=== PATIENT | male | born 1980 ===

== ENCOUNTER 2017-06-07 21:47 | Observation (INO) | payer SELFPAY ==
[2017-06-07 22:10] VITALS: BMI 26.5
--- NOTE | 2017-06-07 22:30 | ED PDOC ---
Arrival/HPI - General Historian: Patient, EMS <Yemi Chatman - Last Filed: 06/08/17 04:08> <Ruddy Marshall - Last Filed: 06/08/17 06:04> - General Chief Complaint: Alcohol Ingestion Time Seen by Provider: 06/07/17 22:27 - History of Present Illness Narrative History of Present Illness (Text): 06/07/17 22:27 37 y/o male, no significant pmh, nkda, +etoh on breath and admits drinking beer tonight, biba for the etoh intoxication x 1 hour. Pt. was found in the laundromat intoxicated and attempted to sleep in the laundromat, no fall or trauma, no head or neck injury, no dizziness, no abdominal pain, no dizziness, no homidical or suicidal ideation, no auditory or visual hallucination, no other medical or psychological complaints. (Yemi Chatman) Past Medical History - Provider Review Nursing Documentation Reviewed: Yes - Infectious Disease Hx of Infectious Diseases: None - Psychiatric Hx Substance Use: No - Anesthesia Hx Anesthesia: No <Yemi Chatman - Last Filed: 06/08/17 04:08> Family/Social History - Physician Review Nursing Documentation Reviewed: Yes Family/Social History: Unknown Family HX Smoking Status: Current Some Days Smoker Hx Alcohol Use: Yes Hx Substance Use: No <Yemi Chatman - Last Filed: 06/08/17 04:08> Allergies/Home Meds <Yemi Chatman - Last Filed: 06/08/17 04:08> <Ruddy Marshall - Last Filed: 06/08/17 06:04> Allergies/Adverse Reactions: Allergies No Known Allergies Allergy (Verified 06/15/16 03:12) Home Medications: Home Meds Medication Instructions Recorded Confirmed No Known Home Med 06/15/16 06/08/17 Review of Systems - Review of Systems Systems not reviewed;Unavailable: Intoxicated Constitutional: absent: Fatigue, Weight Change Eyes: absent: Vision Changes Respiratory: absent: SOB, Cough Cardiovascular: absent: Chest Pain Gastrointestinal: absent: Abdominal Pain, Nausea, Vomiting Musculoskeletal: absent: Arthralgias, Back Pain, Myalgias Neurological: absent: Headache, Dizziness, Focal Weakness, Gait Changes, Speech Changes, Facial Droop, Disequilibrium, Seizure <Yemi Chatman - Last Filed: 06/08/17 04:08> Physical Exam - Systems Exam Head: Present: Atraumatic, Normocephalic. No: Tenderness, Contusion, Swelling, Ecchymosis, Abrasion, Laceration Pupils: Present: PERRL Extroacular Muscles: Present: EOMI Conjunctiva: Present: Normal Mouth: Present: Moist Mucous Membranes Neck: Present: Normal Range of Motion, Trachea Midline. No: MIDLINE TENDERNESS , Paraspinal Tenderness, Lymphadenopathy Respiratory/Chest: Present: Clear to Auscultation, Good Air Exchange. No: Respiratory Distress, Accessory Muscle Use Cardiovascular: Present: Regular Rate and Rhythm, Normal S1, S2. No: Murmurs Abdomen: Present: Normal Bowel Sounds. No: Tenderness, Distention, Peritoneal Signs, Rebound, Guarding Back: Present: Normal Inspection. No: Midline Tenderness, Paraspinal Tenderness Upper Extremity: Present: Normal Inspection. No: Cyanosis, Edema Lower Extremity: Present: Normal Inspection. No: Edema Neurological: Present: GCS=15, Speech Normal, Motor Func Grossly Intact, Memory Normal Skin: Present: Warm, Dry, Normal Color. No: Rashes Psychiatric: Present: Alert, Oriented x 3, Normal Insight, Normal Concentration <Yemi Chatman - Last Filed: 06/08/17 04:08> Medical Decision Making <Yemi Chatman - Last Filed: 06/08/17 04:08> <Ruddy Marshall - Last Filed: 06/08/17 06:04> ED Course and Treatment: 06/07/17 22:29 -FS -Observe and reassess (Yemi Chatman) ED OBSERVATION Date of observation admission: 06/08/17 Time of observation admission: 00:30 <Yemi Chatman - Last Filed: 06/08/17 04:08> Discharge: Yes <Ruddy Marshall - Last Filed: 06/08/17 06:04> - Observation admission statement Patient is being placed in observation because:: alcohol intoxication (Yemi Chatman) - Goals of Observation Goals of observation are:: sober (Yemi Chatman) - Progress Note Progress Note: 06/08/17 00:30 -Pt. is sleeping 06/08/17 02:30 -Pt. is sleeping, pending for the sober, offer no medical or psychological complaints. -Pt. sign out to the current ER attending Dr. Marshall for the continue observation and final dispo the patient. (Yemi Chatman) - PA / [employer]INTENANCE / Resident Statement JUAN RAMON has reviewed & agrees with the documentation as recorded. <Yemi Chatman - Last Filed: 06/08/17 04:08> - PA / [employer]IN[employer]INTENANCE / Resident Statement / has reviewed & agrees with the documentation as recorded. <Ruddy Marshall - Last Filed: 06/08/17 06:04> Disposition/Present on Arrival - Present on Arrival Any Indicators Present on Arrival: No History of DVT/PE: No History of Uncontrolled Diabetes: No Urinary Catheter: No History of Decub. Ulcer: No History Surgical Site Infection Following: None - Disposition Have Diagnosis and Disposition been Completed?: Yes Disposition Time: 02:07 <Yemi Chatman - Last Filed: 06/08/17 04:08> - Present on Arrival Any Indicators Present on Arrival: No - Disposition Have Diagnosis and Disposition been Completed?: Yes Disposition Time: 06:00 <Ruddy Marshall - Last Filed: 06/08/17 06:04> - Disposition Diagnosis: Alcohol intoxication Disposition: HOME/ ROUTINE Patient Problems: Current Active Problems Problem Status Onset Alcohol intoxication Acute Condition: GOOD
[2017-06-07 22:46] VITALS: TEMP 97.6
[2017-06-08 04:44] VITALS: O2SAT 99
[2017-06-08 05:49] VITALS: BP 145/87; PULSE 81; RESP 18
== END 2017-06-08 06:04 | disposition home or self-care (01) ==
LOC: ED 21:47 → EROBSV 06-08 02:04
PROVIDERS: ADMIT Emergency Medicine; ATTEND Emergency Medicine
DX: F10.129 Alcohol abuse with intoxication, unspecified (principal)
CPT/HCPCS: 99284; G0378

== ENCOUNTER 2017-06-12 20:25 | Observation (INO) | payer SELFPAY ==
[2017-06-12 20:25] VITALS: BMI 26.5
[2017-06-12 20:52] VITALS: TEMP 98.4
--- NOTE | 2017-06-12 20:57 | ED PDOC ---
Arrival/HPI - General Chief Complaint: Alcohol Ingestion Time Seen by Provider: 06/12/17 20:26 Historian: Patient EM Caveat: Intoxicated - History of Present Illness Narrative History of Present Illness (Text): 06/12/17 20:55 A 37 year old male, with a history of etoh abuse, is brought into the emergency department via EMS for public intoxication. Patient admits to drinking earlier today and denies any other complaints at this time. Time/Duration: 4-6 hours Symptom Onset: Other Activities at Onset: Light (etoh consumption) Context: Other Past Medical History - Provider Review Nursing Documentation Reviewed: Yes - Infectious Disease Hx of Infectious Diseases: None - Psychiatric Hx Substance Use: No - Anesthesia Hx Anesthesia: No Family/Social History - Physician Review Nursing Documentation Reviewed: Yes Family/Social History: No Known Family HX Smoking Status: Current Some Days Smoker Hx Alcohol Use: Yes Frequency of alcohol use: Daily Hx Substance Use: No Allergies/Home Meds Allergies/Adverse Reactions: Allergies No Known Allergies Allergy (Verified 06/15/16 03:12) Home Medications: Home Meds Medication Instructions Recorded Confirmed No Known Home Med 06/15/16 06/12/17 Review of Systems - Physician Review All systems were reviewed & negative as marked: Yes - Review of Systems Constitutional: Normal. absent: Fevers Eyes: Normal ENT: Normal Respiratory: Normal. absent: SOB, Cough Cardiovascular: Normal. absent: Chest Pain Gastrointestinal: Normal. absent: Abdominal Pain, Diarrhea, Nausea, Vomiting Genitourinary Male: Normal. absent: Dysuria, Frequency, Hematuria, Urinary Output Changes Musculoskeletal: Normal. absent: Back Pain, Neck Pain Skin: Normal. absent: Rash Neurological: Normal. absent: Headache, Dizziness Endocrine: Normal Hemo/Lymphatic: Normal Psychiatric: Normal Physical Exam Vital Signs Reviewed: Yes Vital Signs Temp Pulse Resp BP Pulse Ox 06/12/17 20:51 98.4 F 90 18 128/71 95 Temperature: Afebrile Blood Pressure: Normal Pulse: Regular Respiratory Rate: Normal Appearance: Positive for: Well-Appearing, Non-Toxic, Comfortable Pain Distress: None Mental Status: Positive for: Alert and Oriented X 3, other (intoxicated) - Systems Exam Head: Present: Atraumatic, Normocephalic Pupils: Present: PERRL Extroacular Muscles: Present: EOMI Conjunctiva: Present: Normal Ears: Present: NORMAL TM Mouth: Present: Moist Mucous Membranes Pharnyx: Present: Normal Neck: Present: Normal Range of Motion Respiratory/Chest: Present: Clear to Auscultation, Good Air Exchange. No: Respiratory Distress, Accessory Muscle Use Cardiovascular: Present: Regular Rate and Rhythm, Normal S1, S2. No: Murmurs Abdomen: Present: Normal Bowel Sounds. No: Tenderness, Distention, Peritoneal Signs Back: Present: Normal Inspection Upper Extremity: Present: Normal Inspection. No: Cyanosis, Edema Lower Extremity: Present: Normal Inspection. No: Edema Neurological: Present: GCS=15, CN II-XII Intact, Speech Normal, Motor Func Grossly Intact, Normal Sensory Function Skin: Present: Warm, Dry, Normal Color. No: Rashes Psychiatric: Present: Alert, Oriented x 3, Intoxicated ED OBSERVATION Discharge: Yes Date of observation admission: 06/12/17 Time of observation admission: 20:55 - Observation admission statement Patient is being placed in observation because:: Alcohol intoxication - Goals of Observation Goals of observation are:: Patient to be observed for sobriety any signs of withdrawal. - Progress Note Progress Note: 06/12/17 20:55 Pt in acute distress, pending sobriety. 06/12/17 22:55 Pt resting comfortably, no new complaints. 06/13/17 00:55 Pt sleeping currently, in no acute distress. 06/13/17 02:55 Pt resting comfortably, no new complaints. 06/13/17 04:55 Pt sleeping currently, in no acute distress. 06/13/17 05:51 Pt awake, alert, and ambulating with steady gait. Pt stable for d/c. - PA / HAIR MIXER / Resident Statement MD/DO has reviewed & agrees with the documentation as recorded. - Scribe Statement The provider has reviewed the documentation as recorded by the Porsche Beavers Provider Scribe Attestation: All medical record entries made by the Scribromie were at my direction and personally dictated by me. I have reviewed the chart and agree that the record accurately reflects my personal performance of the history, physical exam, medical decision making, and the department course for this patient. I have also personally directed, reviewed, and agree with the discharge instructions and disposition. Disposition/Present on Arrival - Present on Arrival Any Indicators Present on Arrival: No History of DVT/PE: No History of Uncontrolled Diabetes: No Urinary Catheter: No History of Decub. Ulcer: No History Surgical Site Infection Following: None - Disposition Have Diagnosis and Disposition been Completed?: Yes Diagnosis: Alcohol intoxication Disposition: HOME/ ROUTINE Disposition Time: 05:54 Patient Plan: Discharge Condition: STABLE
[2017-06-13 06:31] VITALS: BP 128/60; PULSE 83; RESP 16; O2SAT 96
--- NOTE | 2017-06-13 13:59 | CARD ---
APPROVED REPORT EKG Measurement Heart [id number] <Conclusion> Normal sinus rhythm Minimal voltage criteria for LVH, may be normal variant Borderline ECG
== END 2017-06-13 05:54 | disposition home or self-care (01) ==
LOC: ED 20:25 → EROBSV 20:55
PROVIDERS: ADMIT Emergency Medicine; ATTEND Emergency Medicine
DX: F10.129 Alcohol abuse with intoxication, unspecified (principal)
CPT/HCPCS: 93005; 99283; G0378

== ENCOUNTER 2017-07-27 12:45 | Inpatient (IN) | payer OTHER ==
[2017-07-27 12:50] VITALS: BMI 27.9
--- NOTE | 2017-07-27 13:02 | ED PDOC ---
Arrival/HPI <Jazzmine Bae - Last Filed: 07/27/17 14:55> - General Historian: Patient, Other (translation provided by nurse) EM Caveat: Acuity of Condition - History of Present Illness Time/Duration: 4-6 hours Symptom Onset: Sudden Symptom Course: Unchanged Quality: Tightness Severity Level: 5 Activities at Onset: Rest Context: Home <ANTOINE MURRY - Last Filed: 07/27/17 14:58> - General Time Seen by Provider: 07/27/17 12:47 - History of Present Illness Narrative History of Present Illness (Text): 07/27/17 12:59 37yo Male with hx of ETOH abuse presents with headache that started earlier today. Pt admits to drinking 6-8 large alcoholic drinks yesterday and having one large bottle of beer earlier today. Pt admits to n/v yesterday that was non-bloody but none today. pt denies any cp, sob, fevers, chills, weakness. (ANTOINE MURRY) Past Medical History - Provider Review Nursing Documentation Reviewed: Yes - Past History Past History: Non-Contributing - Infectious Disease Hx of Infectious Diseases: None - Cardiac Hx Cardiac Disorders: No - Pulmonary Hx Respiratory Disorders: No - Neurological Hx Neurological Disorder: No - HEENT Hx HEENT Disorder: No - Renal Hx Renal Disorder: No - Endocrine/Metabolic Hx Endocrine Disorders: No - Hematological/Oncological Hx Blood Disorders: No - Integumentary Hx Dermatological Disorder: No - Musculoskeletal/Rheumatological Hx Musculoskeletal Disorders: No - Gastrointestinal Hx Gastrointestinal Disorders: No - Genitourinary/Gynecological Hx Genitourinary Disorders: No - Psychiatric Hx Psychophysiologic Disorder: Yes Hx Substance Use: Yes (ETOH) - Past Surgical History Past Surgical History: Non-Contributing - Anesthesia Hx Anesthesia: No <ANTOINE MURRY - Last Filed: 07/27/17 14:58> Family/Social History - Physician Review Nursing Documentation Reviewed: Yes Family/Social History: No Known Family HX Smoking Status: Current Some Days Smoker Hx Alcohol Use: Yes Frequency of alcohol use: Daily Hx Substance Use: No <ANTOINE MURRY - Last Filed: 07/27/17 14:58> Allergies/Home Meds <Jazzmine Bae - Last Filed: 07/27/17 14:55> <ANTOINE MURRY - Last Filed: 07/27/17 14:58> Allergies/Adverse Reactions: Allergies No Known Allergies Allergy (Verified 07/13/17 12:08) Home Medications: Home Meds Medication Instructions Recorded Confirmed No Known Home Med 07/27/17 07/27/17 Review of Systems - Physician Review All systems were reviewed & negative as marked: Yes - Review of Systems Systems not reviewed;Unavailable: Acuity of Condition Constitutional: Normal. absent: Fevers, Night Sweats, Other (weakness) Eyes: Other (blurry vision) ENT: Normal. absent: Hearing Changes Respiratory: Normal. absent: SOB, Cough Cardiovascular: Normal Gastrointestinal: Nausea, Vomiting Neurological: Headache. absent: Dizziness, Facial Droop <ANTOINE MURRY - Last Filed: 07/27/17 14:58> Physical Exam Vital Signs Reviewed: Yes Appearance: Positive for: Uncomfortable Pain Distress: None Mental Status: Positive for: Alert and Oriented X 3 - Systems Exam Head: Present: Atraumatic, Normocephalic Pupils: Present: Sluggish Extroacular Muscles: Present: EOMI Conjunctiva: Present: Normal Mouth: Present: Moist Mucous Membranes Neck: Present: Normal Range of Motion Respiratory/Chest: Present: Clear to Auscultation, Good Air Exchange Cardiovascular: Present: Normal S1, S2, Tachycardic Abdomen: Present: Normal Bowel Sounds. No: Tenderness, Distention Back: Present: Normal Inspection Lower Extremity: Present: Normal Inspection. No: Edema, CALF TENDERNESS Neurological: Present: Other (tremor when outstretched hands; fair finger to nose exam) Skin: Present: Warm, Dry, Other (contusion on R lateral sub-clavicle (doesn't recall how he got it)) Psychiatric: Present: Alert, Oriented x 3 <ANTOINE MURRY - Last Filed: 07/27/17 14:58> Vital Signs Temp Pulse Resp BP Pulse Ox 07/27/17 14:24 84 18 167/93 H 98 07/27/17 13:40 89 18 169/105 H 95 07/27/17 12:55 99 F 105 H 18 185/111 H 97 Medical Decision Making <Jazzmine Bae - Last Filed: 07/27/17 14:55> <ANTOINE MURRY - Last Filed: 07/27/17 14:58> ED Course and Treatment: 07/27/17 14:51 Patient seen and examined with resident; came up with plan together. Presented with etoh abuse; tachycardic and hypertensive - started on banana bag and iv ativan - patient with mild-moderate improvement, but upon standing, still with jittery sensation and recurrence of tachycardia. Etoh level is zeo c/w withdrawal. Patient will need to be admitted for close monitoring, evaluation, and treatment - discussed with Dr. Hussain Patel. 07/27/17 14:55 Also of noted, patient c/o nonspecific headache with normal neuro exam; CT head on 06/22/17 negative - no further workup. May be related to HTN. (Jazzmine Bae) 07/27/17 13:08 Impression: ETOH intoxication vs withdrawal Plan: -- Reassess and disposition -- banana bag -- Ativan 2mg IVP -- labs, UA, UDS, and ETOH level Progress Notes: 07/27/17 13:16 EKG showed NSR @ 82bpm w/ non-specific T wave abnormalities 07/27/17 13:50 Creator : Ashley Elise MD CXR done IMPRESSION: No active pulmonary disease 07/27/17 14:38 Dr. Bae spoke w/ Dr. Petros Patel who accepted the patient onto her service ( ANTOINE MURRY) - Lab Interpretations Lab Results: 07/27/17 13:35 07/27/17 13:35 Lab Results 07/27/17 13:35: Alcohol, Quantitative < 10 07/27/17 13:35: Sodium 136, Chloride 97 L, Potassium 3.8, Carbon Dioxide 27, Anion Gap 16, BUN 8, Creatinine 0.5, Est GFR ( Amer) > 60, Est GFR (Non- Af Amer) > 60, Random Glucose 101, Calcium 9.1, Magnesium 1.9, Total Bilirubin 1.7 H, AST 115 H, ALT 108 H, Alkaline Phosphatase 70, Total Protein 8.5 H, Albumin 4.9 H, Globulin 3.6, Albumin/Globulin Ratio 1.4, Lipase 165 07/27/17 13:35: pO2 199 H, VBG pH 7.46 H, VBG pCO2 38.0 L, VBG HCO3 27.0, VBG Total CO2 28.2 H, VBG O2 Sat (Calc) 99.4 H, VBG Base Excess 3.1 H, VBG Potassium 3.4 L, Sodium 134.0, Chloride 99.0, Glucose 103, Lactate 0.9, FiO2 21.0, Venous Blood Potassium 3.4 L 07/27/17 13:35: WBC 4.1 L, RBC 4.76, Hgb 14.7, Hct 40.8 L, MCV 85.7, MCH 30.9, MCHC 36.0, RDW 13.1, Plt Count 84 L, MPV 11.1 H, Gran % 79.5 H, Lymph % (Auto) 11.4 L, [place] % (Auto) 8.9 H, Eos % (Auto) 0.0 L, Baso % (Auto) 0.2, Gran # 3.29 , Lymph # 0.5 L, [place] # 0.4, Eos # 0.0, Baso # 0.01 07/27/17 13:32: Urine Opiates Screen Negative, Urine Methadone Screen Negative, Ur Barbiturates Screen Negative, Ur Phencyclidine Scrn Negative, Ur Amphetamines Screen Negative, U Benzodiazepines Scrn Negative, U Oth Cocaine Metabols Negative, U Cannabinoids Screen Negative 07/27/17 13:32: Urine Color Yellow, Urine Appearance Clear, Urine pH 7.5, Ur Specific Raymond 1.015, Urine Protein 30 H, Urine Glucose (UA) Negative, Urine Ketones 15 H, Urine Blood Trace-intact H, Urine Nitrate Negative, Urine Bilirubin Negative, Urine Urobilinogen 1.0 H, Ur Leukocyte Esterase Negative, Urine RBC 0 - 2, Urine WBC 0 - 2, Urine Bacteria Small - RAD Interpretation Radiology Orders: 07/27/17 13:12 CHEST PORTABLE [RAD] Stat - Medication Orders Current Medication Orders: Discontinued Medications Multivitamins/Vitamin C 10 ml/Thiamine HCl 100 mg/ Folic Acid 1 mg/ Dextrose/ Sodium Chloride 1,011.2 mls @ 1,000 mls/hr IV .Q1H1M ONE Stop: 07/27/17 14:12 Multivitamins/Vitamin C 10 ml/Thiamine HCl 100 mg/ Folic Acid 1 mg/ Dextrose/ Sodium Chloride 1,011.2 mls @ 1,011.2 mls/hr IV .Q1H ONE Stop: 07/27/17 14:29 Last Admin: 07/27/17 13:47 Dose: 1,011.2 mls/hr eMAR Start Stop Document 07/27/17 13:47 AD (Rec: 07/27/17 13:47 AD [id number]) Intravenous Solution Start Date 07/27/17 Start Time 13:47 Lorazepam (Ativan) 2 mg IVP ONCE ONE PRN Reason: Protocol Stop: 07/27/17 13:15 Last Admin: 07/27/17 13:39 Dose: 2 mg IVP Administration Document 07/27/17 13:39 AD (Rec: 07/27/17 13:39 AD [id number]) Charges for Administration # of IVP Administrations 1 - PA / VP [employer] / Resident Statement / has reviewed & agrees with the documentation as recorded. / has examined the patient and agrees with the treatment plan. <Jazzmine Bae - Last Filed: 07/27/17 14:55> Disposition/Present on Arrival - Disposition Patient Plan: Admission <Jazzmine Bae - Last Filed: 07/27/17 14:55> - Present on Arrival Any Indicators Present on Arrival: No History of DVT/PE: No History of Uncontrolled Diabetes: No Urinary Catheter: No History Surgical Site Infection Following: None - Disposition Have Diagnosis and Disposition been Completed?: Yes Disposition Time: 14:40 <ANTOINE MURRY - Last Filed: 07/27/17 14:58> - Disposition Diagnosis: Withdrawal symptoms, alcohol, EtOH dependence Disposition: HOSPITALIZED Patient Problems: Current Active Problems Problem Status Onset EtOH dependence Acute Withdrawal symptoms, alcohol Acute Condition: FAIR Referrals: PCP,NO [Primary Care Provider] - Follow up with primary
[2017-07-27] MEDS ORDERED: THIAMINE IV ONE (13:12)
[2017-07-27] MEDS ORDERED: MULTIVITAMIN IV ONE (13:12)
[2017-07-27] MEDS ORDERED: [UNRECOGNIZED DRUG - OTHER] IV ONE (13:12)
[2017-07-27] MEDS ORDERED: FOLIC ACID IV ONE (13:12)
[2017-07-27] MEDS ORDERED: Multivitamin (MVI) 10 ML, Thiamine 100 MG, Folic Acid 1 MG in Dextrose 5%/0.45% NS 1,00... IV ONE (13:30)
[2017-07-27 13:37] LABS: PH,URINE 7.5 (4.7-8.0); URINE BILIRUBIN NEGATIVE (NEGATIVE); URINE BLOOD TRACE-INTACT (NEGATIVE); URINE GLUCOSE (UA) NEGATIVE (NEGATIVE); URINE KETONE 15 mg/dL (NEGATIVE); URINE LEUKOCYTE ESTERASE NEGATIVE Leu/uL (NEGATIVE); URINE PROTEIN 30 mg/dL (<30 mg/dL)
[2017-07-27 13:40] LABS: VENOUS BLOOD GAS BASE EXCESS 3.1 mmol/L (0.0-2.0); VENOUS BLOOD PH 7.46 (7.32-7.43)
[2017-07-27 13:43] LABS: URINE APPEARANCE CLEAR (CLEAR); URINE COLOR YELLOW (YELLOW)
[2017-07-27 13:44] LABS: URINE RBC 0 - 2 /hpf (0-2); URINE WBC 0 - 2 /hpf (0-6)
[2017-07-27 13:45] LABS: URINE BACTERIA SMALL (NEG)
[2017-07-27 13:45] LABS: BASO # 0.01 K/mm3 (0.0-2.0); BASO % 0.2 % (0.0-3.0); GRAN # 3.29 (1.4-6.5); GRAN % 79.5 % (50.0-68.0); HEMATOCRIT 40.8 % (42.0-52.0); LYMPH # 0.5 (1.2-3.4); LYMPH % 11.4 % (22.0-35.0); MEAN CELL VOLUME 85.7 fl (80.0-105.0); MEAN CORPUSCULAR HEMOGLOBIN 30.9 pg (25.0-35.0); MEAN PLATELET VOLUME 11.1 fl (7.0-11.0); MONO # 0.4 (0.1-0.6); MONO % 8.9 % (1.0-6.0); RED CELL DISTRIBUTION WIDTH 13.1 % (11.5-14.5); WHITE BLOOD COUNT 4.1 10^3/ul (4.5-11.0)
--- NOTE | 2017-07-27 13:48 | RAD ---
HISTORY: etoh withdrawal COMPARISON: No prior. FINDINGS: LUNGS: The lungs are well inflated and clear. PLEURA: No significant pleural effusion identified, no pneumothorax apparent. CARDIOVASCULAR: Normal. OSSEOUS STRUCTURES: No significant abnormalities. VISUALIZED UPPER ABDOMEN: Normal. OTHER FINDINGS: None. IMPRESSION: No active pulmonary disease.
[2017-07-27 13:51] LABS: ALB/GLOB RATIO 1.4 (1.1-1.8); ALKALINE PHOSPHATASE 70 U/L (38-126); ALT/SGPT 108 U/L (7-56); AST/SGOT 115 U/L (17-59); BILIRUBIN,TOTAL 1.7 mg/dL (0.2-1.3); BLOOD UREA NITROGEN 8 mg/dL (7-21); CALCIUM 9.1 mg/dL (8.4-10.5); CARBON DIOXIDE 27 mmol/L (21-33); CHLORIDE 97 mmol/L (98-107); GFR AFRICAN-AMERICAN > 60; GLUCOSE,RANDOM 101 mg/dL (70-110); LIPASE 165 U/L (23-300); MAGNESIUM 1.9 mg/dL (1.7-2.2); POTASSIUM 3.8 mmol/L (3.6-5.0); SODIUM 136 mmol/L (132-148); TOTAL PROTEIN 8.5 g/dL (5.8-8.3)
--- NOTE | 2017-07-27 15:18 | CP.PCM.HP ---
<Emir Piña - Last Filed: 07/28/17 02:54> History of Present Illness - History of Present Illness History of Present Illness: H&P. Dr. Armstrong 37yo M wiht no significant PMHx here for evaluation of Dizziness and Headache x1 day. Patient has a hx of ETOH abuse and has been evaluated in the ED multiple times for ETOH intoxication. Patient states that he has been living on the streets for a few weeks now. He reports last alcohol use yesterday, 6-8 beers. He states that he drinks about 6-8 beers daily. He states that he has been feeling dizzy and has had a headache for the past day. He also reports some nausea without any emesis. Denies any urinary changes. Denies CP/SOB. No Vomiting or diarrhea. No Abd pain. Denies any visual disturbances. Denies any anxiety. PMHx: ETOH abuse PSHx: denies Family Hx: denies Social Hx: Current daily 6-8 beers per day. Does admit to tobacco use. Denies drugs. Currently lives [address] NKDA Present on Admission - Present on Admission Any Indicators Present on Admission: No Review of Systems - Review of Systems All systems: reviewed and no additional remarkable complaints except - Constitutional Constitutional: absent: Chills, Fever - EENT Eyes: absent: Blurred Vision Nose/Mouth/Throat: absent: Epistaxis - Cardiovascular Cardiovascular: absent: Chest Pain, Diaphoresis, Dyspnea, Edema - Respiratory Respiratory: absent: Cough, Dyspnea - Gastrointestinal Gastrointestinal: Nausea. absent: Abdominal Pain, Diarrhea, Dyspepsia, Dysphagia, Hematemesis, Melena, Vomiting - Genitourinary Genitourinary: absent: Dysuria - Musculoskeletal Musculoskeletal: absent: Back Pain - Integumentary Integumentary: absent: Lesions - Psychiatric Psychiatric: absent: Anxiety Past Patient History - Infectious Disease Hx of Infectious Diseases: None - Past Medical History & Family History Past Family History: Reviewed and not pertinent - Past Social History Smoking Status: Current Some Days Smoker Alcohol: > 2 Drinks/Day Drugs: Denies - CARDIAC Hx Cardiac Disorders: No - PULMONARY Hx Respiratory Disorders: No - NEUROLOGICAL Hx Neurological Disorder: No - HEENT Hx HEENT Problems: No - RENAL Hx Chronic Kidney Disease: No - ENDOCRINE/METABOLIC Hx Endocrine Disorders: No - HEMATOLOGICAL/ONCOLOGICAL Hx Blood Disorders: No - INTEGUMENTARY Hx Dermatological Problems: No - MUSCULOSKELETAL/RHEUMATOLOGICAL Hx Musculoskeletal Disorders: No - GASTROINTESTINAL Hx Gastrointestinal Disorders: No - GENITOURINARY/GYNECOLOGICAL Hx Genitourinary Disorders: No - PSYCHIATRIC Hx Psychophysiologic Disorder: Yes Hx Substance Use: No - SURGICAL HISTORY Hx Surgeries: No - ANESTHESIA Hx Anesthesia: No Meds Allergies/Adverse Reactions: Allergies Allergy/AdvReac Type Severity Reaction Status Date / Time No Known Allergies Allergy Verified 07/27/17 16:15 Physical Exam - Constitutional Appears: Well, No Acute Distress, Older Than Stated Age Additional comments: Flushed skin - Head Exam Head Exam: ATRAUMATIC, NORMAL INSPECTION, NORMOCEPHALIC - Eye Exam Eye Exam: EOMI, Normal appearance. absent: Scleral icterus - ENT Exam ENT Exam: Mucous Membranes Moist - Respiratory Exam Respiratory Exam: Clear to Auscultation Bilateral, NORMAL BREATHING PATTERN. absent: Decreased Breath Sounds, Rales, Rhonchi, Wheezes, Respiratory Distress - Cardiovascular Exam Cardiovascular Exam: RRR, +S1, +S2. absent: JVD - GI/Abdominal Exam GI & Abdominal Exam: Soft. absent: Distended, Firm, Guarding, Tenderness - Extremities Exam Extremities exam: Positive for: normal inspection. Negative for: calf tenderness, pedal edema - Back Exam Back exam: NORMAL INSPECTION - Neurological Exam Neurological exam: Alert, Oriented x3 - Psychiatric Exam Psychiatric exam: Normal Affect, Normal Mood - Skin Skin Exam: Dry, Intact, Normal Color, Warm Additional comments: flushed skin Results - Vital Signs Recent Vital Signs: Last Vital Signs Temp 99 F 07/27/17 12:55 Pulse 84 07/27/17 14:24 Resp 18 07/27/17 14:24 BP 167/93 H 07/27/17 14:24 Pulse Ox 98 07/27/17 14:24 - Labs Result Diagrams: 07/27/17 13:35 07/27/17 13:35 Labs: Laboratory Results - last 24 hr 07/27/17 07/27/17 07/27/17 13:32 13:32 13:35 WBC 4.1 L RBC 4.76 Hgb 14.7 Hct 40.8 L MCV 85.7 MCH 30.9 MCHC 36.0 RDW 13.1 Plt Count 84 L MPV 11.1 H Gran % 79.5 H Lymph % (Auto) 11.4 L [place] % (Auto) 8.9 H Eos % (Auto) 0.0 L Baso % (Auto) 0.2 Gran # 3.29 Lymph # 0.5 L [place] # 0.4 Eos # 0.0 Baso # 0.01 pO2 VBG pH VBG pCO2 VBG HCO3 VBG Total CO2 VBG O2 Sat (Calc) VBG Base Excess VBG Potassium Sodium Chloride Glucose Lactate FiO2 Potassium Carbon Dioxide Anion Gap BUN Creatinine Est GFR ( Amer) Est GFR (Non-Af Amer) Random Glucose Calcium Magnesium Total Bilirubin AST ALT Alkaline Phosphatase Total Protein Albumin Globulin Albumin/Globulin Ratio Lipase Venous Blood Potassium Urine Color Yellow Urine Appearance Clear Urine pH 7.5 Ur Specific [place] 1.015 Urine Protein 30 H Urine Glucose (UA) Negative Urine Ketones 15 H Urine Blood Trace-intact H Urine Nitrate Negative Urine Bilirubin Negative Urine Urobilinogen 1.0 H Ur Leukocyte Esterase Negative Urine RBC 0 - 2 Urine WBC 0 - 2 Urine Bacteria Small Urine Opiates Screen Negative Urine Methadone Screen Negative Ur Barbiturates Screen Negative Ur Phencyclidine Scrn Negative Ur Amphetamines Screen Negative U Benzodiazepines Scrn Negative U Oth Cocaine Metabols Negative U Cannabinoids Screen Negative Alcohol, Quantitative 07/27/17 07/27/17 07/27/17 13:35 13:35 13:35 WBC RBC Hgb Hct MCV MCH MCHC RDW Plt Count MPV Gran % Lymph % (Auto) [place] % (Auto) Eos % (Auto) Baso % (Auto) Gran # Lymph # [place] # Eos # Baso # pO2 199 H VBG pH 7.46 H VBG pCO2 38.0 L VBG HCO3 27.0 VBG Total CO2 28.2 H VBG O2 Sat (Calc) 99.4 H VBG Base Excess 3.1 H VBG Potassium 3.4 L Sodium 134.0 136 Chloride 99.0 97 L Glucose 103 Lactate 0.9 FiO2 21.0 Potassium 3.8 Carbon Dioxide 27 Anion Gap 16 BUN 8 Creatinine 0.5 Est GFR ( Amer) > 60 Est GFR (Non-Af Amer) > 60 Random Glucose 101 Calcium 9.1 Magnesium 1.9 Total Bilirubin 1.7 H AST 115 H ALT 108 H Alkaline Phosphatase 70 Total Protein 8.5 H Albumin 4.9 H Globulin 3.6 Albumin/Globulin Ratio 1.4 Lipase 165 Venous Blood Potassium 3.4 L Urine Color Urine Appearance Urine pH Ur Specific [place] Urine Protein Urine Glucose (UA) Urine Ketones Urine Blood Urine Nitrate Urine Bilirubin Urine Urobilinogen Ur Leukocyte Esterase Urine RBC Urine WBC Urine Bacteria Urine Opiates Screen Urine Methadone Screen Ur Barbiturates Screen Ur Phencyclidine Scrn Ur Amphetamines Screen U Benzodiazepines Scrn U Oth Cocaine Metabols U Cannabinoids Screen Alcohol, Quantitative < 10 Assessment & Plan - Assessment and Plan (Free Text) Assessment: 37yo M with PMHx of ETOH abuse here with dizziness, headache and ETOH abuse 1. Dizziness/Headaches f/u CT head orthostatic vitals IV fluids Encourage PO fluid intake 2. ETOH abuse CIWA protocol Ativan 1mg IV q6 Ativan 2mg IV q3 prn Zofran Daily Banana bag Utox negative Serum ETOH negative on tele monitor 3. Thrombocytopenia likely secondary to ETOH abuse no anticoagulation f/u coags 4. Elevated Liver enzymes f/u Hepatitis panel likely secondary to ETOH abuse avoid hepatotoxic meds continue to monitor 5. Elevated Blood Pressure continue to check vitals q6h clonidine prn 6. PPx SCDs Pepcid 20mg BID Discussed case with Dr. Patti Piña PGY1 <Marv Armstrong - Last Filed: 07/28/17 07:21> Results - Vital Signs Recent Vital Signs: Last Vital Signs Temp 98.9 F 07/28/17 05:50 Pulse 66 07/28/17 05:51 Resp 18 07/28/17 05:50 BP 137/96 H 07/28/17 05:50 Pulse Ox 99 07/28/17 05:50 - Labs Result Diagrams: 07/28/17 07:03 07/27/17 13:35 Labs: Laboratory Results - last 24 hr 07/28/17 07:03 WBC 3.8 L RBC 4.82 Hgb 14.8 Hct 41.5 L MCV 86.1 MCH 30.7 MCHC 35.7 RDW 13.2 Plt Count 79 L MPV 10.8 Gran % 58.9 Lymph % (Auto) 27.5 [place] % (Auto) 11.5 H Eos % (Auto) 1.8 Baso % (Auto) 0.3 Gran # 2.25 Lymph # 1.1 L [place] # 0.4 Eos # 0.1 Baso # 0.01 Attending/Attestation - Attestation I have personally seen and examined this patient.: Yes I have fully participated in the care of the patient.: Yes I have reviewed all pertinent clinical information: Yes Notes (Text): 07/27/17 37 year old homeless male with past medical history of alcohol abuse who presents with complaint of headache, dizziness and alcohol intoxication. He is being admitted to telemetry unit for alcohol withdrawal. CT head is negative. Will start on banana bag. Continue with ativan nevin and prn for withdrawal symptoms. He was counselled on alcohol abstinence. Elevated LFTs and thrombocytopenia likely secondary to chronic ETOH abuse. Will continue to monitor. Hepatitis panel is ordered. Marv rAmstrong MD Hospitalist.
--- NOTE | 2017-07-27 16:04 | CT ---
PROCEDURE: CT HEAD WITHOUT CONTRAST. HISTORY: Dizziness COMPARISON: 06/22/2017 TECHNIQUE: Axial computed tomography images were obtained through the head/brain without intravenous contrast. Radiation dose: Total exam DLP = 725.84 mGy-cm. This CT exam was performed using one or more of the following dose reduction techniques: Automated exposure control, adjustment of the mA and/or kV according to patient size, and/or use of iterative reconstruction technique. FINDINGS: HEMORRHAGE: No intracranial hemorrhage. BRAIN: No mass effect or edema. No atrophy or chronic microvascular ischemic changes. VENTRICLES: Unremarkable. No hydrocephalus. CALVARIUM: Unremarkable. PARANASAL SINUSES: Unremarkable as visualized. No significant inflammatory changes. MASTOID AIR CELLS: Unremarkable as visualized. No inflammatory changes. OTHER FINDINGS: None. IMPRESSION: Normal CT of the Head.
[2017-07-27] MEDS: Folic Acid 1 MG, Thiamine 100 MG, Multivitamin (MVI) 10 ML in Dextrose 5% In Water 1,00... IV SCH (17:55)
[2017-07-27] MEDS ORDERED: Pneumococcal 23-Valent Vaccine IM ONE (17:59)
[2017-07-28] MEDS: Folic Acid 1 MG, Thiamine 100 MG, Multivitamin (MVI) 10 ML in Dextrose 5% In Water 1,00... IV SCH ×2 (03:00→15:15)
[2017-07-28 05:51] VITALS: O2SAT 99
[2017-07-28 07:11] LABS: BASO # 0.01 K/mm3 (0.0-2.0); BASO % 0.3 % (0.0-3.0); EOS # 0.1 (0.0-0.7); EOS % 1.8 % (1.5-5.0); GRAN # 2.25 (1.4-6.5); GRAN % 58.9 % (50.0-68.0); HEMATOCRIT 41.5 % (42.0-52.0); LYMPH # 1.1 (1.2-3.4); LYMPH % 27.5 % (22.0-35.0); MEAN CELL VOLUME 86.1 fl (80.0-105.0); MEAN CORPUSCULAR HEMOGLOBIN 30.7 pg (25.0-35.0); MEAN CORPUSCULAR HGB CONC 35.7 g/dl (31.0-37.0); MEAN PLATELET VOLUME 10.8 fl (7.0-11.0); MONO # 0.4 (0.1-0.6); MONO % 11.5 % (1.0-6.0); RED CELL DISTRIBUTION WIDTH 13.2 % (11.5-14.5); WHITE BLOOD COUNT 3.8 10^3/ul (4.5-11.0)
[2017-07-28 07:17] LABS: INR 1.01 (0.93-1.08); PARTIAL THROMBOPLASTIN TIME 27.3 Seconds (23.7-30.8)
[2017-07-28 07:26] LABS: ALB/GLOB RATIO 1.3 (1.1-1.8); ALKALINE PHOSPHATASE 60 U/L (38-126); ALT/SGPT 119 U/L (7-56); AST/SGOT 116 U/L (17-59); BLOOD UREA NITROGEN 9 mg/dL (7-21); CALCIUM 9.3 mg/dL (8.4-10.5); CARBON DIOXIDE 31 mmol/L (21-33); CHLORIDE 97 mmol/L (95-110); GFR AFRICAN-AMERICAN > 60; GLUCOSE,RANDOM 122 mg/dL (70-110); POTASSIUM 3.6 mmol/L (3.6-5.0); SODIUM 135 mmol/L (132-148); TOTAL PROTEIN 7.6 g/dL (5.8-8.3)
--- NOTE | 2017-07-28 11:44 | CARD ---
APPROVED REPORT EKG Measurement Heart [id number] <Conclusion> Normal sinus rhythm Moderate voltage criteria for LVH, may be normal variant Nonspecific T wave abnormality Abnormal ECG
[2017-07-28 12:10] VITALS: RESP 26; TEMP 99.1
[2017-07-28 16:18] VITALS: PULSE 85
[2017-07-28 16:28] VITALS: BP 139/95
--- NOTE | 2017-07-28 21:18 | CP.PCM.DIS ---
<Enrrique Banks - Last Filed: 07/28/17 23:01> Provider - Provider Date of Admission: 07/27/17 14:33 Attending physician: Marv Armstrong MD Primary care physician: NO PRIMARY CARE PROVIDER Time Spent in preparation of Discharge (in minutes): 45 Diagnosis - Discharge Diagnosis (1) Alcohol intoxication Status: Resolved Priority: Low (2) EtOH dependence Status: Chronic Priority: Medium Hospital Course - Lab Results Lab Results: Most Recent Lab Values WBC 3.8 10^3/ul (4.5-11.0) L 07/28/17 07:03 RBC 4.82 10^6/uL (3.5-6.1) 07/28/17 07:03 Hgb 14.8 g/dL (14.0-18.0) 07/28/17 07:03 Hct 41.5 % (42.0-52.0) L 07/28/17 07:03 MCV 86.1 fl (80.0-105.0) 07/28/17 07:03 MCH 30.7 pg (25.0-35.0) 07/28/17 07:03 MCHC 35.7 g/dl (31.0-37.0) 07/28/17 07:03 RDW 13.2 % (11.5-14.5) 07/28/17 07:03 Plt Count 79 10^3/uL (120.0-450.0) L 07/28/17 07:03 MPV 10.8 fl (7.0-11.0) 07/28/17 07:03 Gran % 58.9 % (50.0-68.0) 07/28/17 07:03 Lymph % (Auto) 27.5 % (22.0-35.0) 07/28/17 07:03 [place] % (Auto) 11.5 % (1.0-6.0) H 07/28/17 07:03 Eos % (Auto) 1.8 % (1.5-5.0) 07/28/17 07:03 Baso % (Auto) 0.3 % (0.0-3.0) 07/28/17 07:03 Gran # 2.25 (1.4-6.5) 07/28/17 07:03 Lymph # 1.1 (1.2-3.4) L 07/28/17 07:03 [place] # 0.4 (0.1-0.6) 07/28/17 07:03 Eos # 0.1 (0.0-0.7) 07/28/17 07:03 Baso # 0.01 K/mm3 (0.0-2.0) 07/28/17 07:03 PT 10.9 Seconds (9.9-11.8) 07/28/17 07:03 INR 1.01 (0.93-1.08) 07/28/17 07:03 APTT 27.3 Seconds (23.7-30.8) 07/28/17 07:03 pO2 199 mm/Hg (30-55) H 07/27/17 13:35 VBG pH 7.46 (7.32-7.43) H 07/27/17 13:35 VBG pCO2 38.0 (40-60) L 07/27/17 13:35 VBG HCO3 27.0 mmol/l (21-28) 07/27/17 13:35 VBG Total CO2 28.2 mmol.L (22-28) H 07/27/17 13:35 VBG O2 Sat (Calc) 99.4 % (40-65) H 07/27/17 13:35 VBG Base Excess 3.1 mmol/L (0.0-2.0) H 07/27/17 13:35 VBG Potassium 3.4 mmol/L (3.6-5.2) L 07/27/17 13:35 Sodium 134.0 mmol/L (132-148) 07/27/17 13:35 Chloride 99.0 mmol/L (98-107) 07/27/17 13:35 Glucose 103 mg/dl (75-110) 07/27/17 13:35 Lactate 0.9 mmol/L (0.7-2.1) 07/27/17 13:35 FiO2 21.0 % 07/27/17 13:35 Sodium 135 mmol/L (132-148) 07/28/17 07:03 Potassium 3.6 mmol/L (3.6-5.0) 07/28/17 07:03 Chloride 97 mmol/L (95-110) 07/28/17 07:03 Carbon Dioxide 31 mmol/L (21-33) 07/28/17 07:03 Anion Gap 11 (10-20) 07/28/17 07:03 BUN 9 mg/dL (7-21) 07/28/17 07:03 Creatinine 0.6 mg/dL (0.5-1.4) 07/28/17 07:03 Est GFR ( Amer) > 60 07/28/17 07:03 Est GFR (Non-Af Amer) > 60 07/28/17 07:03 Random Glucose 122 mg/dL (70-110) H 07/28/17 07:03 Calcium 9.3 mg/dL (8.4-10.5) 07/28/17 07:03 Magnesium 1.9 mg/dL (1.7-2.2) 07/27/17 13:35 Total Bilirubin 2.0 mg/dL (0.2-1.3) H 07/28/17 07:03 AST 116 U/L (17-59) H 07/28/17 07:03 ALT 119 U/L (7-56) H 07/28/17 07:03 Alkaline Phosphatase 60 U/L (38-126) 07/28/17 07:03 Total Protein 7.6 g/dL (5.8-8.3) 07/28/17 07:03 Albumin 4.3 g/dL (3.0-4.8) 07/28/17 07:03 Globulin 3.4 gm/dL 07/28/17 07:03 Albumin/Globulin Ratio 1.3 (1.1-1.8) 07/28/17 07:03 Lipase 165 U/L (23-300) 07/27/17 13:35 Venous Blood Potassium 3.4 mmol/L (3.6-5.2) L 07/27/17 13:35 Urine Color Yellow (YELLOW) 07/27/17 13:32 Urine Appearance Clear (CLEAR) 07/27/17 13:32 Urine pH 7.5 (4.7-8.0) 07/27/17 13:32 Ur Specific [place] 1.015 (1.005-1.035) 07/27/17 13:32 Urine Protein 30 mg/dL (<30 mg/dL) H 07/27/17 13:32 Urine Glucose (UA) Negative mg/dL (NEGATIVE) 07/27/17 13:32 Urine Ketones 15 mg/dL (NEGATIVE) H 07/27/17 13:32 Urine Blood Trace-intact (NEGATIVE) H 07/27/17 13:32 Urine Nitrate Negative (NEGATIVE) 07/27/17 13:32 Urine Bilirubin Negative (NEGATIVE) 07/27/17 13:32 Urine Urobilinogen 1.0 E.U./dL (<1 E.U./dL) H 07/27/17 13:32 Ur Leukocyte Esterase Negative Tien/uL (NEGATIVE) 07/27/17 13:32 Urine RBC 0 - 2 /hpf (0-2) 07/27/17 13:32 Urine WBC 0 - 2 /hpf (0-6) 07/27/17 13:32 Urine Bacteria Small (NEG) 07/27/17 13:32 Urine Opiates Screen Negative (NEGATIVE) 07/27/17 13:32 Urine Methadone Screen Negative (NEGATIVE) 07/27/17 13:32 Ur Barbiturates Screen Negative (NEGATIVE) 07/27/17 13:32 Ur Phencyclidine Scrn Negative (NEGATIVE) 07/27/17 13:32 Ur Amphetamines Screen Negative (NEGATIVE) 07/27/17 13:32 U Benzodiazepines Scrn Negative (NEGATIVE) 07/27/17 13:32 U Oth Cocaine Metabols Negative (NEGATIVE) 07/27/17 13:32 U Cannabinoids Screen Negative (NEGATIVE) 07/27/17 13:32 Alcohol, Quantitative < 10 mg/dL (0-10) 07/27/17 13:35 Hepatitis A IgM Ab Negative (NEGATIVE) 07/27/17 13:35 Hep Bs Antigen Negative (NEGATIVE) 07/27/17 13:35 Hep B Core IgM Ab Negative (NEGATIVE) 07/27/17 13:35 Hepatitis C Antibody Negative (NEGATIVE) 07/27/17 13:35 - Hospital Course Hospital Course: 37 y/o M with PMH of alcohol abuse presented with alcohol intoxication and dizziness. Pt was admitted for alcohol withdrawal and treated with banana bag along with ativan for withdrawal symptoms. Pt also received Head CT which was found to be negative. Elevated LFTs and thrombocytopenia likely secondary to chronic alcohol abuse. Pt counseled on benefits of alcohol abstinence. Pt discharged and told to follow up at [facility]. Pt given multivitamin to go home with. Discharge Exam - Head Exam Head Exam: ATRAUMATIC, NORMAL INSPECTION, NORMOCEPHALIC - Eye Exam Eye Exam: Normal appearance. absent: Scleral icterus - ENT Exam ENT Exam: Mucous Membranes Moist - Respiratory Exam Respiratory Exam: NORMAL BREATHING PATTERN, UNREMARKABLE - Cardiovascular Exam Cardiovascular Exam: RRR, +S1, +S2 - GI/Abdominal Exam GI & Abdominal Exam: Normal Bowel Sounds, Soft, Unremarkable. absent: Tenderness - Extremities Exam Extremities exam: normal inspection - Neurological Exam Neurological exam: Alert, CN II-XII Intact, Oriented x3 Additional comments: No tremor - Psychiatric Exam Psychiatric exam: Normal Affect, Normal Mood - Skin Skin Exam: Intact, Normal Color, Warm Discharge Plan - Discharge Medications Prescriptions: Multivitamin [Men's Multi-Vitamin] 1 each PO DAILY #7 tablet - Follow Up Plan Condition: FAIR Disposition: HOME/ ROUTINE Instructions: Alcohol Intoxication (DC), Abuse of Alcohol (DC), Acute Headache (DC), Alcohol Withdrawal (DC), Alcohol Dependence (GEN), Alcohol Use Disorder ( DC) Additional Instructions: FOLLOW UP WITH YOUR DOCTOR WITHIN 1-2 WEEKS. IF YOU EXPERIENCE ANY TREMORS, PALPITATIONS, SHORTNESS OF BREATH OR CHEST PAIN, GO TO THE ER. IF SYMPTOMS PERSIST OR WORSEN GO TO THE ER. ABSTAIN FROM DRINKING ALCOHOL. Referrals: PCP,NO [Primary Care Provider] - <Marv Armstrong - Last Filed: 07/29/17 09:15> Provider - Provider Date of Admission: 07/27/17 14:33 Attending physician: Marv Armstrong MD Primary care physician: NO PRIMARY CARE PROVIDER Hospital Course - Lab Results Lab Results: Most Recent Lab Values WBC 3.8 10^3/ul (4.5-11.0) L 07/28/17 07:03 RBC 4.82 10^6/uL (3.5-6.1) 07/28/17 07:03 Hgb 14.8 g/dL (14.0-18.0) 07/28/17 07:03 Hct 41.5 % (42.0-52.0) L 07/28/17 07:03 MCV 86.1 fl (80.0-105.0) 07/28/17 07:03 MCH 30.7 pg (25.0-35.0) 07/28/17 07:03 MCHC 35.7 g/dl (31.0-37.0) 07/28/17 07:03 RDW 13.2 % (11.5-14.5) 07/28/17 07:03 Plt Count 79 10^3/uL (120.0-450.0) L 07/28/17 07:03 MPV 10.8 fl (7.0-11.0) 07/28/17 07:03 Gran % 58.9 % (50.0-68.0) 07/28/17 07:03 Lymph % (Auto) 27.5 % (22.0-35.0) 07/28/17 07:03 [place] % (Auto) 11.5 % (1.0-6.0) H 07/28/17 07:03 Eos % (Auto) 1.8 % (1.5-5.0) 07/28/17 07:03 Baso % (Auto) 0.3 % (0.0-3.0) 07/28/17 07:03 Gran # 2.25 (1.4-6.5) 07/28/17 07:03 Lymph # 1.1 (1.2-3.4) L 07/28/17 07:03 [place] # 0.4 (0.1-0.6) 07/28/17 07:03 Eos # 0.1 (0.0-0.7) 07/28/17 07:03 Baso # 0.01 K/mm3 (0.0-2.0) 07/28/17 07:03 PT 10.9 Seconds (9.9-11.8) 07/28/17 07:03 INR 1.01 (0.93-1.08) 07/28/17 07:03 APTT 27.3 Seconds (23.7-30.8) 07/28/17 07:03 pO2 199 mm/Hg (30-55) H 07/27/17 13:35 VBG pH 7.46 (7.32-7.43) H 07/27/17 13:35 VBG pCO2 38.0 (40-60) L 07/27/17 13:35 VBG HCO3 27.0 mmol/l (21-28) 07/27/17 13:35 VBG Total CO2 28.2 mmol.L (22-28) H 07/27/17 13:35 VBG O2 Sat (Calc) 99.4 % (40-65) H 07/27/17 13:35 VBG Base Excess 3.1 mmol/L (0.0-2.0) H 07/27/17 13:35 VBG Potassium 3.4 mmol/L (3.6-5.2) L 07/27/17 13:35 Sodium 134.0 mmol/L (132-148) 07/27/17 13:35 Chloride 99.0 mmol/L (98-107) 07/27/17 13:35 Glucose 103 mg/dl (75-110) 07/27/17 13:35 Lactate 0.9 mmol/L (0.7-2.1) 07/27/17 13:35 FiO2 21.0 % 07/27/17 13:35 Sodium 135 mmol/L (132-148) 07/28/17 07:03 Potassium 3.6 mmol/L (3.6-5.0) 07/28/17 07:03 Chloride 97 mmol/L (95-110) 07/28/17 07:03 Carbon Dioxide 31 mmol/L (21-33) 07/28/17 07:03 Anion Gap 11 (10-20) 07/28/17 07:03 BUN 9 mg/dL (7-21) 07/28/17 07:03 Creatinine 0.6 mg/dL (0.5-1.4) 07/28/17 07:03 Est GFR ( Amer) > 60 07/28/17 07:03 Est GFR (Non-Af Amer) > 60 07/28/17 07:03 Random Glucose 122 mg/dL (70-110) H 07/28/17 07:03 Calcium 9.3 mg/dL (8.4-10.5) 07/28/17 07:03 Magnesium 1.9 mg/dL (1.7-2.2) 07/27/17 13:35 Total Bilirubin 2.0 mg/dL (0.2-1.3) H 07/28/17 07:03 AST 116 U/L (17-59) H 07/28/17 07:03 ALT 119 U/L (7-56) H 07/28/17 07:03 Alkaline Phosphatase 60 U/L (38-126) 07/28/17 07:03 Total Protein 7.6 g/dL (5.8-8.3) 07/28/17 07:03 Albumin 4.3 g/dL (3.0-4.8) 07/28/17 07:03 Globulin 3.4 gm/dL 07/28/17 07:03 Albumin/Globulin Ratio 1.3 (1.1-1.8) 07/28/17 07:03 Lipase 165 U/L (23-300) 07/27/17 13:35 Venous Blood Potassium 3.4 mmol/L (3.6-5.2) L 07/27/17 13:35 Urine Color Yellow (YELLOW) 07/27/17 13:32 Urine Appearance Clear (CLEAR) 07/27/17 13:32 Urine pH 7.5 (4.7-8.0) 07/27/17 13:32 Ur Specific [place] 1.015 (1.005-1.035) 07/27/17 13:32 Urine Protein 30 mg/dL (<30 mg/dL) H 07/27/17 13:32 Urine Glucose (UA) Negative mg/dL (NEGATIVE) 07/27/17 13:32 Urine Ketones 15 mg/dL (NEGATIVE) H 07/27/17 13:32 Urine Blood Trace-intact (NEGATIVE) H 07/27/17 13:32 Urine Nitrate Negative (NEGATIVE) 07/27/17 13:32 Urine Bilirubin Negative (NEGATIVE) 07/27/17 13:32 Urine Urobilinogen 1.0 E.U./dL (<1 E.U./dL) H 07/27/17 13:32 Ur Leukocyte Esterase Negative Tien/uL (NEGATIVE) 07/27/17 13:32 Urine RBC 0 - 2 /hpf (0-2) 07/27/17 13:32 Urine WBC 0 - 2 /hpf (0-6) 07/27/17 13:32 Urine Bacteria Small (NEG) 07/27/17 13:32 Urine Opiates Screen Negative (NEGATIVE) 07/27/17 13:32 Urine Methadone Screen Negative (NEGATIVE) 07/27/17 13:32 Ur Barbiturates Screen Negative (NEGATIVE) 07/27/17 13:32 Ur Phencyclidine Scrn Negative (NEGATIVE) 07/27/17 13:32 Ur Amphetamines Screen Negative (NEGATIVE) 07/27/17 13:32 U Benzodiazepines Scrn Negative (NEGATIVE) 07/27/17 13:32 U Oth Cocaine Metabols Negative (NEGATIVE) 07/27/17 13:32 U Cannabinoids Screen Negative (NEGATIVE) 07/27/17 13:32 Alcohol, Quantitative < 10 mg/dL (0-10) 07/27/17 13:35 Hepatitis A IgM Ab Negative (NEGATIVE) 07/27/17 13:35 Hep Bs Antigen Negative (NEGATIVE) 07/27/17 13:35 Hep B Core IgM Ab Negative (NEGATIVE) 07/27/17 13:35 Hepatitis C Antibody Negative (NEGATIVE) 07/27/17 13:35 Attending/Attestation - Attestation I have personally seen and examined this patient.: Yes I have fully participated in the care of the patient.: Yes I have reviewed all pertinent clinical information, including history, physical exam and plan: Yes Notes (Text): 07/28/17 37 year old homeless male with past medical history of alcohol abuse who presented with complaint of headache, dizziness and alcohol intoxication. He was for alcohol withdrawal and started on banana bag and ativan for withdrawal symptoms. CT head is negative. Overnight his symptoms improved. He is not currently in withdrawal. He was seen by PT and cleared for discharge. He had eevated LFTs and thrombocytopenia likely secondary to chronic ETOH abuse. Hepatitis panel was negative. Patent is discharged to follow up with pmd or with [facility]. He was counselled on alcohol abstinence. Marv Armstrong MD Hospitalist.
== END 2017-07-28 17:51 | disposition home or self-care (01) | DRG 750 ==
LOC: ED 12:45 → ERH 14:33 → 2RSO 18:23
PROVIDERS: ADMIT Internal Medicine; ATTEND Internal Medicine
DX: F10.239 Alcohol dependence with withdrawal, unspecified (principal); D69.59 Other secondary thrombocytopenia; F17.200 Nicotine dependence, unspecified, uncomplicated; Z59.0 Homelessness; R51 Headache; I10 Essential (primary) hypertension; R00.0 Tachycardia, unspecified; R74.8 Abnormal levels of other serum enzymes

== ENCOUNTER 2017-07-30 22:06 | Observation (INO) | payer OTHER ==
[2017-07-30 22:27] VITALS: BMI 27.4
--- NOTE | 2017-07-30 22:41 | ED PDOC ---
Arrival/HPI - General Chief Complaint: Alcohol Ingestion Time Seen by Provider: 07/30/17 22:20 Historian: Patient EM Caveat: Intoxicated, Uncooperative - History of Present Illness Narrative History of Present Illness (Text): 07/30/17 22:35 37 year old male, whose past medical history includes ETOH abuse, presents to the emergency department by EMS for public ETOH intoxication. Patient admits to drinking, but denies any drug use. Patient asks for something to eat and drink. HPI and ROS limited to due patient being uncooperative and alcohol intoxication. Time/Duration: Other Symptom Onset: Gradual Symptom Course: Unchanged Context: Street Past Medical History - Provider Review Nursing Documentation Reviewed: Yes - Past History Past History: Non-Contributing - Infectious Disease Hx of Infectious Diseases: None - Cardiac Hx Cardiac Disorders: No - Pulmonary Hx Respiratory Disorders: No - Neurological Hx Neurological Disorder: No - HEENT Hx HEENT Disorder: No - Renal Hx Renal Disorder: No - Endocrine/Metabolic Hx Endocrine Disorders: No - Hematological/Oncological Hx Blood Disorders: No - Integumentary Hx Dermatological Disorder: No - Musculoskeletal/Rheumatological Hx Musculoskeletal Disorders: No - Gastrointestinal Hx Gastrointestinal Disorders: No - Genitourinary/Gynecological Hx Genitourinary Disorders: No - Psychiatric Hx Psychophysiologic Disorder: Yes Hx Substance Use: No - Past Surgical History Past Surgical History: Non-Contributing - Anesthesia Hx Anesthesia: No Family/Social History - Physician Review Nursing Documentation Reviewed: Yes Family/Social History: No Known Family HX Smoking Status: Current Some Days Smoker Hx Alcohol Use: Yes (BINGE DRINKS-LAST DRANK 10 OR MORE BEERS. HAS BEEN DRINKING 5-6 YRS.) Hx Substance Use: No Allergies/Home Meds Allergies/Adverse Reactions: Allergies No Known Allergies Allergy (Verified 07/30/17 22:26) Home Medications: Home Meds Medication Instructions Recorded Confirmed No Known Home Med 07/30/17 07/30/17 Review of Systems - Physician Review All systems were reviewed & negative as marked: Yes - Review of Systems Systems not reviewed;Unavailable: Intoxicated Physical Exam Vital Signs Temp Pulse Resp BP Pulse Ox 07/31/17 05:56 98.2 F 87 17 117/80 96 - Systems Exam Head: Present: Atraumatic, Normocephalic Pupils: Present: PERRL Extroacular Muscles: Present: EOMI Conjunctiva: Present: Normal Mouth: Present: Moist Mucous Membranes Neck: Present: Normal Range of Motion Respiratory/Chest: Present: Clear to Auscultation, Good Air Exchange. No: Respiratory Distress, Accessory Muscle Use Cardiovascular: Present: Regular Rate and Rhythm, Normal S1, S2. No: Murmurs Abdomen: Present: Normal Bowel Sounds. No: Tenderness, Distention, Peritoneal Signs Back: Present: Normal Inspection Upper Extremity: Present: Normal Inspection. No: Cyanosis, Edema Lower Extremity: Present: Normal Inspection. No: Edema Neurological: Present: GCS=15, CN II-XII Intact, Speech Normal Skin: Present: Warm, Dry, Normal Color. No: Rashes Psychiatric: Present: Alert, Oriented x 3, Normal Insight, Normal Concentration , Intoxicated Medical Decision Making ED Course and Treatment: 07/30/17 22:35 Impression: 37 year old male presents for public ETOH intoxication. Plan: -- edobs. -- Reassess and disposition Prior Visits: Notes and results from previous visits were reviewed. On 07/27/2017 patient presents complaining of headache that began earlier today. Progress Notes: 07/31/17 06:27 Pt. alert,sober,with steady gait in ED. ED OBSERVATION Discharge: Yes - Observation admission statement Patient is being placed in observation because:: Patient is being placed for alcohol intoxication. - Goals of Observation Goals of observation are:: Patient goal is sobriety. - Progress Note Progress Note: 07/30/17 22:35 Patient brought in by EMS for alcohol intoxication. Patient is asking for something to eat and drink. Will observe pending sobriety. 07/31/17 00:22 Patient currently sleeping, in no acute distress. 07/31/17 02:26 Patient resting comfortably, no new complaints. 07/31/17 04:18 Patient sleeping comfortably, in no acute distress. - Scribe Statement The provider has reviewed the documentation as recorded by the Porsche Devine Provider Scribe Attestation: All medical record entries made by the Porsche were at my direction and personally dictated by me. I have reviewed the chart and agree that the record accurately reflects my personal performance of the history, physical exam, medical decision making, and the department course for this patient. I have also personally directed, reviewed, and agree with the discharge instructions and disposition. Disposition/Present on Arrival - Present on Arrival Any Indicators Present on Arrival: No History of DVT/PE: No History of Uncontrolled Diabetes: No Urinary Catheter: No History of Decub. Ulcer: No History Surgical Site Infection Following: None - Disposition Have Diagnosis and Disposition been Completed?: Yes Diagnosis: Alcohol intoxication Disposition: HOME/ ROUTINE Disposition Time: 06:27 Patient Plan: Discharge Condition: STABLE
[2017-07-31 05:57] VITALS: BP 117/80; PULSE 87; RESP 17; TEMP 98.2; O2SAT 96
== END 2017-07-31 06:26 | disposition home or self-care (01) ==
LOC: ED 22:06 → EROBSV 22:35
PROVIDERS: ADMIT Emergency Medicine; ATTEND Emergency Medicine
DX: F10.129 Alcohol abuse with intoxication, unspecified (principal)
CPT/HCPCS: 99283; G0378

== ENCOUNTER 2017-08-02 19:44 | Observation (INO) | payer OTHER ==
[2017-08-02 19:52] VITALS: TEMP 99.2; BMI 24.7
[2017-08-02 19:57] VITALS: O2SAT 97
--- NOTE | 2017-08-02 21:37 | ED PDOC ---
Arrival/HPI - General Historian: Patient <Tigist Shine PA-C - Last Filed: 08/03/17 00:33> <Ruddy Marshall - Last Filed: 08/03/17 05:16> - General Chief Complaint: Abnormal Skin Integrity Time Seen by Provider: 08/02/17 20:24 - History of Present Illness Narrative History of Present Illness (Text): 08/02/17 21:31 A 37 year old male presents to the emergency department complaining of a bruise on his right upper chest wall. Patient is unsure how or when he sustained the bruise but denies any pain to touch. Patient presented intoxicated and admits to drinking 6 or more bottles of beer today. Patient denies any other injuries, head trauma, headache, dizziness, fever, chills, nausea, vomiting, abdominal pain, back pain, chest pain, shortness of breath, suicidal ideation, homicidal ideation or any other complaints. (Tigist Shine PA-C) Past Medical History - Provider Review Nursing Documentation Reviewed: Yes - Past History Past History: Non-Contributing - Infectious Disease Hx of Infectious Diseases: None - Cardiac Hx Cardiac Disorders: No - Pulmonary Hx Respiratory Disorders: No - Neurological Hx Neurological Disorder: No - HEENT Hx HEENT Disorder: No - Renal Hx Renal Disorder: No - Endocrine/Metabolic Hx Endocrine Disorders: No - Hematological/Oncological Hx Blood Disorders: No - Integumentary Hx Dermatological Disorder: No - Musculoskeletal/Rheumatological Hx Musculoskeletal Disorders: No - Gastrointestinal Hx Gastrointestinal Disorders: No - Genitourinary/Gynecological Hx Genitourinary Disorders: No - Psychiatric Hx Psychophysiologic Disorder: Yes Hx Substance Use: No - Past Surgical History Past Surgical History: Non-Contributing - Anesthesia Hx Anesthesia: No <Tigist Shine PA-C - Last Filed: 08/03/17 00:33> Family/Social History - Physician Review Nursing Documentation Reviewed: Yes Family/Social History: No Known Family HX Smoking Status: Current Some Days Smoker Hx Alcohol Use: Yes (BINGE DRINKS-LAST DRANK 10 OR MORE BEERS. HAS BEEN DRINKING 5-6 YRS.) Hx Substance Use: No <Tigist Shine PA-C - Last Filed: 08/03/17 00:33> Allergies/Home Meds <Tigist Shine PA-C - Last Filed: 08/03/17 00:33> <JoannaRuddy - Last Filed: 08/03/17 05:16> Allergies/Adverse Reactions: Allergies No Known Allergies Allergy (Verified 08/02/17 19:53) Home Medications: Home Meds Medication Instructions Recorded Confirmed No Known Home Med 07/30/17 08/02/17 Review of Systems - Physician Review All systems were reviewed & negative as marked: Yes - Review of Systems Constitutional: absent: Fevers, Night Sweats Respiratory: absent: SOB, Cough, Sputum Cardiovascular: absent: Chest Pain, Palpitations, Edema Gastrointestinal: absent: Abdominal Pain, Nausea, Vomiting Musculoskeletal: absent: Arthralgias, Back Pain, Neck Pain Skin: Other (Bruise to right upper chest wall). absent: Rash, Pruritis, Skin Lesions Neurological: absent: Headache, Dizziness Psychiatric: absent: Suicidal Ideation (/Homicidal ideation) <Tigist Shine PA-C - Last Filed: 08/03/17 00:33> Physical Exam Vital Signs Reviewed: Yes Temperature: Afebrile Blood Pressure: Normal Pulse: Regular Respiratory Rate: Normal Appearance: Positive for: Non-Toxic, Comfortable, Unkept, Other (Alcohol on breath, dishelved) Pain Distress: None Mental Status: Positive for: Alert and Oriented X 3 Finger Stick Blood Glucose: 90 - Systems Exam Head: Present: Atraumatic, Normocephalic Pupils: Present: PERRL Extroacular Muscles: Present: EOMI Conjunctiva: Present: Normal Mouth: Present: Moist Mucous Membranes Neck: Present: Normal Range of Motion Respiratory/Chest: Present: Clear to Auscultation, Good Air Exchange, Other ( Area of ecchymosis 5 cm in diameter located on right upper chest wall). No: Respiratory Distress, Accessory Muscle Use, Tender to Palpation Cardiovascular: Present: Regular Rate and Rhythm, Normal S1, S2. No: Murmurs Abdomen: Present: Normal Bowel Sounds. No: Tenderness, Distention, Peritoneal Signs Back: Present: Normal Inspection. No: CVA Tenderness, Midline Tenderness, Paraspinal Tenderness Upper Extremity: Present: Normal Inspection, Normal ROM, NORMAL PULSES. No: Cyanosis, Edema, Tenderness, Swelling, Erythema Lower Extremity: Present: Normal Inspection. No: Edema, Tenderness, Swelling Neurological: Present: GCS=15, CN II-XII Intact, Speech Normal Skin: Present: Warm, Dry, Normal Color. No: Rashes Psychiatric: Present: Alert, Oriented x 3 <Tigist Shine PA-C - Last Filed: 08/03/17 00:33> Vital Signs Temp Pulse Resp BP Pulse Ox 08/03/17 01:45 92 H 18 125/70 97 08/02/17 19:53 99.2 F 82 19 131/80 97 08/02/17 19:52 99.2 F 87 19 131/80 98 Medical Decision Making <Tigist Shine PA-C - Last Filed: 08/03/17 00:33> <Ruddy Marshall - Last Filed: 08/03/17 05:16> ED Course and Treatment: 08/02/17 21:31 Impression: A 37 year old male with bruise to right upper chest wall. Patient presented intoxicated, admitting to drinking alcohol. Plan: -- Chest xray -- Reassess and disposition Progress Notes: (Tigist Shine PA-C) - RAD Interpretation Radiology Orders: 08/02/17 20:47 CHEST TWO VIEWS (PA/LAT) [RAD] Stat ED OBSERVATION Date of observation admission: 08/02/17 Time of observation admission: 20:50 <Tigist Shine PA-C - Last Filed: 08/03/17 00:33> Discharge: Yes <Ruddy Marshall - Last Filed: 08/03/17 05:16> - Observation admission statement Patient is being placed in observation because:: etoh intoxication (Tigist Shine PA-C) - Goals of Observation Goals of observation are:: to monitor signs and symptoms (Tigist Shine PA-C) - Progress Note Progress Note: 08/02/17 23:30 CXR : +R 2nd rib fracture, no pneumothorax, no other fractures noted, as read by SAHIL and ER MD. Patient notified of CXR results. Patient resting in bed comfortably in no acute distress. Has no additional complaints at this time. Denies any chest pain, SOB or abdominal pain. 08/03/17 00:34 Patient still sleeping comfortably in no acute distress. Breathing easy and unlabored. (Tigist Shine PA-C) - PA / AUTO ENGINE MECHANIC / Resident Statement / has reviewed & agrees with the documentation as recorded. - Scribe Statement The provider has reviewed the documentation as recorded by the Scribe <Tigist Shine PA-C - Last Filed: 08/03/17 00:33> - PA / AUTO ENGINE MECHANIC / Resident Statement / has reviewed & agrees with the documentation as recorded. <Ruddy Marshall - Last Filed: 08/03/17 05:16> - Scribe Statement Rosario Carranza Provider Scribe Attestation: All medical record entries made by the Scribe were at my direction and personally dictated by me. I have reviewed the chart and agree that the record accurately reflects my personal performance of the history, physical exam, medical decision making, and the department course for this patient. I have also personally directed, reviewed, and agree with the discharge instructions and disposition. (Tigist Shine PA-C) Disposition/Present on Arrival - Present on Arrival Any Indicators Present on Arrival: No History of DVT/PE: No History of Uncontrolled Diabetes: No Urinary Catheter: No History of Decub. Ulcer: No History Surgical Site Infection Following: None - Disposition Have Diagnosis and Disposition been Completed?: Yes Patient Plan: Discharge <Tigist Shine PA-C - Last Filed: 08/03/17 00:33> - Present on Arrival Any Indicators Present on Arrival: No - Disposition Have Diagnosis and Disposition been Completed?: Yes Disposition Time: 06:00 <Ruddy Marshall - Last Filed: 08/03/17 05:16> - Disposition Diagnosis: Alcohol intoxication, Rib fracture Disposition: HOME/ ROUTINE Patient Problems: Current Active Problems Problem Status Onset Alcohol intoxication Acute Rib fracture Acute Condition: STABLE
--- NOTE | 2017-08-03 01:48 | ED PDOC ---
Physical Exam Vital Signs Temp Pulse Resp BP Pulse Ox 08/02/17 19:53 99.2 F 82 19 131/80 97 08/02/17 19:52 99.2 F 87 19 131/80 98 Finger Stick Blood Glucose: 90 Medical Decision Making - RAD Interpretation Radiology Orders: 08/02/17 20:47 CHEST TWO VIEWS (PA/LAT) [RAD] Stat Disposition/Present on Arrival - Present on Arrival Any Indicators Present on Arrival: No History of DVT/PE: No History of Uncontrolled Diabetes: No Urinary Catheter: No History of Decub. Ulcer: No History Surgical Site Infection Following: None - Disposition Diagnosis: Alcohol intoxication, Rib fracture Patient Problems: Current Active Problems Problem Status Onset Alcohol intoxication Acute Rib fracture Acute Condition: STABLE
[2017-08-03 03:09] VITALS: RESP 18
[2017-08-03 06:10] VITALS: BP 125/76; PULSE 88
--- NOTE | 2017-08-03 08:02 | RAD ---
HISTORY: pain COMPARISON: 07/27/2017 TECHNIQUE: Chest PA and lateral FINDINGS: LUNGS: No active pulmonary disease. PLEURA: No significant pleural effusion identified. No pneumothorax apparent. CARDIOVASCULAR: Normal. OSSEOUS STRUCTURES: No significant abnormalities. VISUALIZED UPPER ABDOMEN: Normal. OTHER FINDINGS: None. IMPRESSION: No active disease.
== END 2017-08-03 05:16 | disposition home or self-care (01) ==
LOC: ED 19:44 → EROBSV 20:50
PROVIDERS: ADMIT Emergency Medicine; ATTEND Emergency Medicine
DX: F10.129 Alcohol abuse with intoxication, unspecified (principal); S22.31XA Fracture of one rib, right side, initial encounter for closed fracture; X58.XXXA Exposure to other specified factors, initial encounter
CPT/HCPCS: 71020; 99284; G0378

== ENCOUNTER 2017-08-24 07:04 | Emergency (ER) | payer SELFPAY ==
[2017-08-24 07:24] VITALS: RESP 17; TEMP 98.4; BMI 27.3
[2017-08-24] MEDS ORDERED: Sodium Chloride 0.9% 1,000 ML IV STA (07:42)
--- NOTE | 2017-08-24 07:53 | ED PDOC ---
Arrival/HPI - General Chief Complaint: Dizziness/Lightheaded Time Seen by Provider: 08/24/17 07:23 Historian: Patient - History of Present Illness Narrative History of Present Illness (Text): 08/24/17 07:45 A 37 year old male chronic drinker, whose past medical history includes etoh dependence and etoh withdrawal, presents to the emergency department for complaints of dizziness, which began 1 day ago. He admits to drinking yesterday. The patient denies any trauma, fever, abdominal pain, vomiting, or any other complaints at this time. Time/Duration: 24 hours Symptom Onset: Gradual Symptom Course: Unchanged Activities at Onset: Light Context: Home Past Medical History - Provider Review Nursing Documentation Reviewed: Yes - Past History Past History: Non-Contributing - Infectious Disease Hx of Infectious Diseases: None - Cardiac Hx Cardiac Disorders: No - Pulmonary Hx Respiratory Disorders: No - Neurological Hx Neurological Disorder: No - HEENT Hx HEENT Disorder: No - Renal Hx Renal Disorder: No - Endocrine/Metabolic Hx Endocrine Disorders: No - Hematological/Oncological Hx Blood Disorders: No - Integumentary Hx Dermatological Disorder: No - Musculoskeletal/Rheumatological Hx Musculoskeletal Disorders: No - Gastrointestinal Hx Gastrointestinal Disorders: No - Genitourinary/Gynecological Hx Genitourinary Disorders: No - Psychiatric Hx Psychophysiologic Disorder: Yes Hx Substance Use: No - Past Surgical History Past Surgical History: Non-Contributing - Anesthesia Hx Anesthesia: No Family/Social History - Physician Review Nursing Documentation Reviewed: Yes Family/Social History: No Known Family HX Smoking Status: Current Some Days Smoker Hx Alcohol Use: Yes (BINGE DRINKS-LAST DRANK 10 OR MORE BEERS. HAS BEEN DRINKING 5-6 YRS.) Hx Substance Use: No Allergies/Home Meds Allergies/Adverse Reactions: Allergies No Known Allergies Allergy (Verified 08/02/17 19:53) Home Medications: Home Meds Medication Instructions Recorded Confirmed No Known Home Med 07/30/17 08/24/17 Review of Systems - Physician Review All systems were reviewed & negative as marked: Yes - Review of Systems Constitutional: absent: Fevers Cardiovascular: absent: Chest Pain Gastrointestinal: absent: Abdominal Pain, Vomiting Neurological: Dizziness Physical Exam Vital Signs Reviewed: Yes Vital Signs Temp Pulse Resp BP Pulse Ox 08/24/17 09:11 70 17 152/94 H 98 08/24/17 07:22 98.4 F 99 H 17 155/90 H 100 Temperature: Afebrile Blood Pressure: Hypertensive Pulse: Tachycardic Respiratory Rate: Normal Appearance: Positive for: Well-Appearing, Non-Toxic, Comfortable Pain Distress: None Mental Status: Positive for: Alert and Oriented X 3 - Systems Exam Head: Present: Atraumatic, Normocephalic Pupils: Present: PERRL Extroacular Muscles: Present: EOMI Conjunctiva: Present: Normal Mouth: Present: Moist Mucous Membranes Neck: Present: Normal Range of Motion Respiratory/Chest: Present: Clear to Auscultation, Good Air Exchange. No: Respiratory Distress, Accessory Muscle Use Cardiovascular: Present: Regular Rate and Rhythm, Normal S1, S2. No: Murmurs Abdomen: Present: Normal Bowel Sounds. No: Tenderness, Distention, Peritoneal Signs Back: Present: Normal Inspection Upper Extremity: Present: Normal Inspection. No: Cyanosis, Edema Lower Extremity: Present: Normal Inspection. No: Edema Neurological: Present: GCS=15, CN II-XII Intact, Speech Normal Skin: Present: Warm, Dry, Normal Color. No: Rashes Psychiatric: Present: Alert, Oriented x 3, Normal Insight, Normal Concentration Medical Decision Making ED Course and Treatment: 08/24/17 07:52 Impression: A 37 year old male with dizziness. Differential Diagnosis included but are not limited to: Plan: -- Head CT -- Labs -- IV Fluids -- Urinalysis -- Reassess and disposition Progress Notes: PROCEDURE: CT HEAD WITHOUT CONTRAST. Real Estate Clerk : Cipriano Foster MD Report Date : 08/24/2017 08:05:46 COMPARISON:None available. FINDINGS: HEMORRHAGE:No intracranial hemorrhage. BRAIN:No mass effect or edema. No atrophy or chronic microvascular ischemic changes. VENTRICLES:Unremarkable. No hydrocephalus. CALVARIUM:Unremarkable. PARANASAL SINUSES:Unremarkable as visualized. No significant inflammatory changes. MASTOID AIR CELLS:Unremarkable as visualized. No inflammatory changes. OTHER FINDINGS:None. IMPRESSION: Normal CT of the Head. 08/24/17 08:54 Upon re-evaluation, the patient is sleeping comfortably and not tremulous/ tachcardic. . The patient is stable for discharge. 08/24/17 10:16 - Lab Interpretations Lab Results: 08/24/17 08:24 08/24/17 08:24 Lab Results 08/24/17 08:24: Alcohol, Quantitative < 10 08/24/17 08:24: Sodium 137, Potassium 3.7, Chloride 97 L, Carbon Dioxide 26, Anion Gap 18, BUN 11, Creatinine 0.6 L, Est GFR ( Amer) > 60, Est GFR ( Non-Af Amer) > 60, Random Glucose 88, Calcium 9.4, Total Bilirubin 3.0 H, AST 304 H D, ALT 296 H, Alkaline Phosphatase 76, Total Protein 8.0, Albumin 4.7, Globulin 3.3, Albumin/Globulin Ratio 1.4 08/24/17 08:24: PT 11.4, INR 1.04, APTT 28.6 08/24/17 08:24: WBC 3.2 L, RBC 4.44, Hgb 14.2, Hct 39.9 L, MCV 89.9 D, MCH 32.0 , MCHC 35.6, RDW 14.0, Plt Count 117 L, MPV 12.1 H, Gran % 75.2 H, Lymph % (Auto ) 13.4 L, Emmet % (Auto) 9.9 H, Eos % (Auto) 0.9 L, Baso % (Auto) 0.6, Gran # 2.42, Lymph # 0.4 L, Emmet # 0.3, Eos # 0.0, Baso # 0.02 08/24/17 07:42: Urine Color Yellow, Urine Appearance Sl cloudy, Urine pH 7.5, Ur Specific Evans 1.015, Urine Protein 100 H, Urine Glucose (UA) Negative, Urine Ketones >=80, Urine Blood Trace-intact H, Urine Nitrate Negative, Urine Bilirubin Small H, Urine Urobilinogen 2.0 H, Ur Leukocyte Esterase Negative, Urine RBC 0 - 2, Urine WBC Negative, Ur Epithelial Cells 0 - 2, Amorphous Sediment Many, Urine Bacteria Trace - RAD Interpretation Radiology Orders: 08/24/17 07:41 HEAD W/O CONTRAST [CT] Stat - Medication Orders Current Medication Orders: Discontinued Medications Sodium Chloride (Sodium Chloride 0.9%) 1,000 mls @ 999 mls/hr IV .Q1H1M STA Stop: 08/24/17 08:42 Last Admin: 08/24/17 08:23 Dose: 999 mls/hr eMAR Start Stop Document 08/24/17 08:23 MR (Rec: 08/24/17 08:23 MR [id number]) Intravenous Solution Start Date 08/24/17 Start Time 08:23 End Date 08/24/17 End time 09:24 Total Infusion Time 61 - Scribe Statement The provider has reviewed the documentation as recorded by the Scribe Era Beavers Provider Scribe Attestation: All medical record entries made by the Scribe were at my direction and personally dictated by me. I have reviewed the chart and agree that the record accurately reflects my personal performance of the history, physical exam, medical decision making, and the department course for this patient. I have also personally directed, reviewed, and agree with the discharge instructions and disposition. Disposition/Present on Arrival - Present on Arrival Any Indicators Present on Arrival: No History of DVT/PE: No History of Uncontrolled Diabetes: No Urinary Catheter: No History of Decub. Ulcer: No History Surgical Site Infection Following: None - Disposition Have Diagnosis and Disposition been Completed?: Yes Diagnosis: Dizziness Disposition: HOME/ ROUTINE Disposition Time: 09:00 Condition: STABLE Discharge Instructions (ExitCare): Dizziness (ED) Additional Instructions: please follow up with your doctor/specialist. return to emergency room with worsening symptoms or concerns. Referrals: Alcoholics Anonymous [Outside] - Follow up with primary [facility] [Outside] - Follow up with primary [facility] [Outside] - Follow up with primary Turner Hernandez MD [Staff Provider] - Follow up with primary Forms: Auto I.D. ([place])
--- NOTE | 2017-08-24 08:07 | CT ---
PROCEDURE: CT HEAD WITHOUT CONTRAST. HISTORY: bashir COMPARISON: None available. TECHNIQUE: Axial computed tomography images were obtained through the head/brain without intravenous contrast. Radiation dose: Total exam DLP = 678 mGy-cm. This CT exam was performed using one or more of the following dose reduction techniques: Automated exposure control, adjustment of the mA and/or kV according to patient size, and/or use of iterative reconstruction technique. FINDINGS: HEMORRHAGE: No intracranial hemorrhage. BRAIN: No mass effect or edema. No atrophy or chronic microvascular ischemic changes. VENTRICLES: Unremarkable. No hydrocephalus. CALVARIUM: Unremarkable. PARANASAL SINUSES: Unremarkable as visualized. No significant inflammatory changes. MASTOID AIR CELLS: Unremarkable as visualized. No inflammatory changes. OTHER FINDINGS: None. IMPRESSION: Normal CT of the Head.
[2017-08-24 08:34] LABS: BASO # 0.02 K/mm3 (0.0-2.0); BASO % 0.6 % (0.0-3.0); EOS % 0.9 % (1.5-5.0); GRAN # 2.42 (1.4-6.5); GRAN % 75.2 % (50.0-68.0); HEMATOCRIT 39.9 % (42.0-52.0); LYMPH # 0.4 (1.2-3.4); LYMPH % 13.4 % (22.0-35.0); MEAN CELL VOLUME 89.9 fl (80.0-105.0); MEAN CORPUSCULAR HGB CONC 35.6 g/dl (31.0-37.0); MEAN PLATELET VOLUME 12.1 fl (7.0-11.0); MONO # 0.3 (0.1-0.6); MONO % 9.9 % (1.0-6.0); WHITE BLOOD COUNT 3.2 10^3/ul (4.5-11.0)
[2017-08-24 08:44] LABS: PH,URINE 7.5 (4.7-8.0); URINE BILIRUBIN SMALL (NEGATIVE); URINE BLOOD TRACE-INTACT (NEGATIVE); URINE GLUCOSE (UA) NEGATIVE (NEGATIVE); URINE KETONE >=80 mg/dL (NEGATIVE); URINE LEUKOCYTE ESTERASE NEGATIVE Leu/uL (NEGATIVE); URINE PROTEIN 100 mg/dL (<30 mg/dL)
[2017-08-24 08:47] LABS: URINE COLOR YELLOW (YELLOW)
[2017-08-24 08:47] LABS: INR 1.04 (0.93-1.08); PARTIAL THROMBOPLASTIN TIME 28.6 Seconds (25.1-36.5)
[2017-08-24 08:49] LABS: ALB/GLOB RATIO 1.4 (1.1-1.8); ALKALINE PHOSPHATASE 76 U/L (38-126); ALT/SGPT 296 U/L (7-56); AST/SGOT 304 U/L (17-59); BLOOD UREA NITROGEN 11 mg/dL (7-21); CALCIUM 9.4 mg/dL (8.4-10.5); CARBON DIOXIDE 26 mmol/L (21-33); CHLORIDE 97 mmol/L (98-107); GFR AFRICAN-AMERICAN > 60; GLUCOSE,RANDOM 88 mg/dL (70-110); POTASSIUM 3.7 mmol/L (3.6-5.0); SODIUM 137 mmol/L (132-148)
[2017-08-24 08:54] LABS: URINE AMORPHOUS SEDIMENT MANY; URINE APPEARANCE SL CLOUDY (CLEAR); URINE BACTERIA TRACE (NEG); URINE EPITHELIAL CELLS 0 - 2 /hpf (0-5); URINE RBC 0 - 2 /hpf (0-2); URINE WBC NEGATIVE /hpf (0-6)
[2017-08-24 09:12] VITALS: BP 152/94; PULSE 70; O2SAT 98
== END 2017-08-24 09:20 | disposition home or self-care (01) ==
LOC: ED 07:04
DX: R42 Dizziness and giddiness (principal); F17.200 Nicotine dependence, unspecified, uncomplicated
CPT/HCPCS: 70450; 80053; 81001; 85025; 85610; 85730; 96360; 99284; G0480; J7040

== ENCOUNTER 2017-08-24 23:00 | Inpatient (IN) | payer OTHER ==
[2017-08-24 23:00] VITALS: BMI 27.3
[2017-08-24] MEDS ORDERED: Sodium Chloride 0.9% 1,000 ML IV STA (23:28)
--- NOTE | 2017-08-24 23:29 | ED PDOC ---
Arrival/HPI - General Chief Complaint: Dizziness/Lightheaded Time Seen by Provider: 08/24/17 23:05 - History of Present Illness Narrative History of Present Illness (Text): 08/24/17 23:26 Patient was discharged this AM from the Emergency room. Had a full workup, including head CT and bloodwork. As per Dr. Morales note: "A 37 year old male chronic drinker, whose past medical history includes etoh dependence and etoh withdrawal, presents to the emergency department for complaints of dizziness, which began 1 day ago. He admits to drinking yesterday. The patient denies any trauma, fever, abdominal pain, vomiting, or any other complaints at this time" The patient is still currently complaining of dizziness. Denies all other symptoms. Denies chest pain, shortness of breath, abdominal pain, Nausea, vomiting, diarrhea, dysuria/freq/urg, or lower extremity pain/swelling. (Kyle Contreras) Past Medical History - Past History Past History: Non-Contributing - Infectious Disease Hx of Infectious Diseases: None - Cardiac Hx Cardiac Disorders: No - Pulmonary Hx Respiratory Disorders: No - Neurological Hx Neurological Disorder: No - HEENT Hx HEENT Disorder: No - Renal Hx Renal Disorder: No - Endocrine/Metabolic Hx Endocrine Disorders: No - Hematological/Oncological Hx Blood Disorders: No - Integumentary Hx Dermatological Disorder: No - Musculoskeletal/Rheumatological Hx Musculoskeletal Disorders: No - Gastrointestinal Hx Gastrointestinal Disorders: No - Genitourinary/Gynecological Hx Genitourinary Disorders: No - Psychiatric Hx Psychophysiologic Disorder: Yes Hx Substance Use: No - Past Surgical History Past Surgical History: Non-Contributing - Anesthesia Hx Anesthesia: No Family/Social History - Physician Review Nursing Documentation Reviewed: Yes Family/Social History: No Known Family HX Smoking Status: Current Some Days Smoker Hx Alcohol Use: Yes ([employer]INKS-LAST DRANK 10 OR MORE BEERS. HAS BEEN DRINKING 5-6 YRS.) Hx Substance Use: No Allergies/Home Meds Allergies/Adverse Reactions: Allergies No Known Allergies Allergy (Verified 08/02/17 19:53) Home Medications: Home Meds Medication Instructions Recorded Confirmed No Known Home Med 07/30/17 08/24/17 Review of Systems - Review of Systems Constitutional: absent: Fatigue Eyes: absent: Vision Changes ENT: absent: Hearing Changes Respiratory: absent: SOB Cardiovascular: absent: Chest Pain Gastrointestinal: absent: Abdominal Pain Genitourinary Male: absent: Dysuria Musculoskeletal: absent: Arthralgias Skin: absent: Rash Neurological: Headache, Dizziness Endocrine: absent: Diaphoresis Hemo/Lymphatic: absent: Adenopathy Psychiatric: absent: Anxiety Physical Exam Temperature: Afebrile Blood Pressure: Hypertensive Pulse: Regular Respiratory Rate: Normal Appearance: Positive for: Non-Toxic Pain Distress: None Mental Status: Positive for: Alert and Oriented X 3 - Systems Exam Head: Present: Atraumatic Pupils: Present: PERRL Extroacular Muscles: Present: EOMI Conjunctiva: Present: Normal Mouth: Present: Moist Mucous Membranes Neck: Present: Normal Range of Motion Respiratory/Chest: Present: Clear to Auscultation, Good Air Exchange. No: Respiratory Distress, Accessory Muscle Use Cardiovascular: Present: Regular Rate and Rhythm, Normal S1, S2. No: Murmurs Abdomen: Present: Normal Bowel Sounds. No: Tenderness, Distention Back: No: CVA Tenderness Upper Extremity: Present: Normal Inspection. No: Cyanosis, Edema Lower Extremity: Present: Normal Inspection. No: Edema Neurological: Present: GCS=15, CN II-XII Intact, Speech Normal Skin: Present: Warm Psychiatric: Present: Alert, Oriented x 3 Vital Signs Temp Pulse Resp BP Pulse Ox 08/25/17 03:15 88 19 144/83 99 08/25/17 01:29 63 20 150/89 99 08/24/17 23:15 98.7 F 72 16 164/99 H 97 Medical Decision Making ED Course and Treatment: Impression: Pt seen and evaluated with medical corps officer. Pt, whose past medical history includes alcohol dependence/withdrawal, presents for dizziness. Aware and agree with HPI, clinical findings, plan, and management. Plan: -- CT Head w/o contrast -- Labs, alcohol level -- Urine drug screen -- IV fluids -- Zofran -- Motrin -- Antivert -- Reassess and disposition (Ruddy Marshall) 08/24/17 23:30 Labs from AM appreciated; AST/ALT markedly elevated Lipase ordered repeat head CT; AM one was negative for any acute pathology; patient denies any new falls or EtOH ingestion Meclizine, Ibuprofen, NS bolus, Zofran Dispo and reassess Pancreatitis vs Subdural Hematoma vs chronic EtOH abuse/intoxication/dementia 08/25/17 00:[address] negative for any acute process patient is comfortably resting in bed receiving IVF Pending lipase 08/25/17 00:11 Lipase 218; Pancreatitis liklihood low; EtOH level below 10 patient feels better on reassessment 08/25/17 02:31 Pt was sleeping; woke up from sleep tachycardic and shaking given 2mg IV Ativan Chest X-Ray ordered, EKG, CBC/CMP Gave Thiamine/Folate IV 08/25/17 03:16 Will admit the patient for EtOH withdrawal, with increased liver enzymes 08/25/17 03:[address] Greenberg and the medical corps officer; they will [facility] (Kyle Adrian) - Lab Interpretations Lab Results: 08/25/17 02:45 08/24/17 23:45 Lab Results 08/25/17 02:45: WBC 3.6 L, RBC 4.38, Hgb 13.8 L, Hct 39.6 L, MCV 90.4, MCH 31.5 , MCHC 34.8, RDW 14.1, Plt Count 110 L, MPV 12.5 H, Gran % 66.0, Lymph % (Auto) 22.8, [place] % (Auto) 8.9 H, Eos % (Auto) 1.7, Baso % (Auto) 0.6, Gran # 2.37, Lymph # 0.8 L, [place] # 0.3, Eos # 0.1, Baso # 0.02 08/24/17 23:45: Sodium 134, Potassium 3.4 L, Chloride 99, Carbon Dioxide 25, Anion Gap 13, BUN 12, Creatinine 0.6 L, Est GFR ( Amer) > 60, Est GFR ( Non-Af Amer) > 60, Random Glucose 115 H, Calcium 9.3, Total Bilirubin 2.2 H, AST 464 H D, ALT 374 H, Alkaline Phosphatase 90, Total Protein 7.9, Albumin 4.7 , Globulin 3.2, Albumin/Globulin Ratio 1.5 08/24/17 23:45: Phosphorus 2.6, Magnesium 2.0 08/24/17 23:45: Alcohol, Quantitative < 10 08/24/17 23:45: Lipase 218 - RAD Interpretation Radiology Orders: 08/24/17 23:28 HEAD W/O CONTRAST [CT] Stat 08/25/17 02:31 CHEST PORTABLE [RAD] Stat - Medication Orders Current Medication Orders: Potassium Chloride (K-Dur 20 Meq Er Tab) 40 meq PO STAT STA Stop: 08/25/17 03:22 Discontinued Medications Folic Acid (Folic Acid) 1 mg IVP ONCE STA Stop: 08/25/17 02:30 Last Admin: 08/25/17 03:08 Dose: 1 mg IVP Administration Document 08/25/17 03:08 OCS (Rec: 08/25/17 03:08 OCS [id number]) Charges for Administration # of IVP Administrations 1 Sodium Chloride (Sodium Chloride 0.9%) 1,000 mls @ 999 mls/hr IV .Q1H1M STA Stop: 08/25/17 00:28 Last Admin: 08/24/17 23:45 Dose: 999 mls/hr eMAR Start Stop Document 08/24/17 23:45 OCS (Rec: 08/25/17 00:04 OCS [id number]) Intravenous Solution Start Date 08/25/17 Start Time 00:04 Ibuprofen (Motrin Tab) 600 mg PO STAT STA Stop: 08/24/17 23:29 Last Admin: 08/24/17 23:45 Dose: 600 mg MAR Pain/Vitals Document 08/24/17 23:45 OCS (Rec: 08/25/17 00:04 OCS [id number]) Pain Reassessment Is This A Pain ReAssessment? Yes Sleep Is patient sleeping during reassessment? No Presence of Pain Presence of Pain Yes Pain Scale Used Pain Scale Used Numeric Location Pain Location Body Cushion Filler Description Constant Intensity 8 Lorazepam (Ativan) 2 mg IVP ONCE ONE PRN Reason: Protocol Stop: 08/25/17 02:27 Last Admin: 08/25/17 02:31 Dose: 2 mg Comments: adm for alcohol withdrawal symptoms IVP Administration Document 08/25/17 02:31 YP (Rec: 08/25/17 02:32 [place] [facility] [id number] Charges for Administration # of IVP Administrations 1 Meclizine HCl (Antivert) 12.5 mg PO STAT STA Stop: 08/24/17 23:30 Last Admin: 08/24/17 23:45 Dose: 12.5 mg Ondansetron HCl (Zofran Inj) 4 mg IVP STAT STA Stop: 08/24/17 23:29 Last Admin: 08/24/17 23:45 Dose: 4 mg IVP Administration Document 08/24/17 23:45 OCS (Rec: 08/25/17 00:05 OCS [id number]) Charges for Administration # of IVP Administrations 1 Thiamine HCl (Vitamin B1 Inj) 100 mg IV STAT STA Stop: 08/25/17 02:30 Last Admin: 08/25/17 03:08 Dose: 100 mg eMAR Start Stop Document 08/25/17 03:08 OCS (Rec: 08/25/17 03:08 OCS [id number]) Intravenous Solution Start Date 08/25/17 Start Time 03:08 Disposition/Present on Arrival - Present on Arrival Any Indicators Present on Arrival: Yes History of DVT/PE: No History of Uncontrolled Diabetes: No Urinary Catheter: No History of Decub. Ulcer: No History Surgical Site Infection Following: None - Disposition Have Diagnosis and Disposition been Completed?: Yes Disposition Time: 03:25 Patient Plan: Telemetry - Disposition Diagnosis: Alcohol withdrawal Disposition: HOSPITALIZED Condition: FAIR Forms: [employer] (Serbian)
--- NOTE | 2017-08-25 00:03 | CT ---
EXAM: CT Head Without Intravenous Contrast CLINICAL HISTORY: 37 years old, male; Pain; Headache; Additional info: ETOH TECHNIQUE: Axial computed tomography images of the head/brain without intravenous contrast. All CT scans at this facility use one or more dose reduction techniques, viz.: automated exposure control; ma/kV adjustment per patient size (including targeted exams where dose is matched to indication; i.e. head); or iterative reconstruction technique. COMPARISON: CT - HEAD W/O CONTRAST 2017-08-24 07:52 FINDINGS: Brain: No acute intracranial hemorrhage. No significant white matter disease. No edema. Ventricles: No significant ventriculomegaly. Bones: No acute displaced fracture. Sinuses: Unremarkable as visualized. No acute sinusitis. Mastoid air cells: Unremarkable as visualized. No mastoid effusion. IMPRESSION: No acute intracranial hemorrhage, or suspicious mass effect.
[2017-08-25 00:25] LABS: PHOSPHOROUS 2.6 mg/dL (2.5-4.5)
[2017-08-25] MEDS ORDERED: Thiamine 100 mg/ml Inj IV STA (02:29)
[2017-08-25 03:03] LABS: BASO # 0.02 K/mm3 (0.0-2.0); BASO % 0.6 % (0.0-3.0); EOS # 0.1 (0.0-0.7); EOS % 1.7 % (1.5-5.0); GRAN # 2.37 (1.4-6.5); HEMATOCRIT 39.6 % (42.0-52.0); LYMPH # 0.8 (1.2-3.4); LYMPH % 22.8 % (22.0-35.0); MEAN CELL VOLUME 90.4 fl (80.0-105.0); MEAN CORPUSCULAR HEMOGLOBIN 31.5 pg (25.0-35.0); MEAN CORPUSCULAR HGB CONC 34.8 g/dl (31.0-37.0); MEAN PLATELET VOLUME 12.5 fl (7.0-11.0); MONO # 0.3 (0.1-0.6); MONO % 8.9 % (1.0-6.0); RED CELL DISTRIBUTION WIDTH 14.1 % (11.5-14.5); WHITE BLOOD COUNT 3.6 10^3/ul (4.5-11.0)
[2017-08-25 03:12] LABS: ALB/GLOB RATIO 1.5 (1.1-1.8); ALKALINE PHOSPHATASE 90 U/L (38-126); ALT/SGPT 374 U/L (7-56); AST/SGOT 464 U/L (17-59); BILIRUBIN,TOTAL 2.2 mg/dL (0.2-1.3); BLOOD UREA NITROGEN 12 mg/dL (7-21); CALCIUM 9.3 mg/dL (8.4-10.5); CARBON DIOXIDE 25 mmol/L (21-33); CHLORIDE 99 mmol/L (95-110); GFR AFRICAN-AMERICAN > 60; GLUCOSE,RANDOM 115 mg/dL (70-110); POTASSIUM 3.4 mmol/L (3.6-5.0); SODIUM 134 mmol/L (132-148); TOTAL PROTEIN 7.9 g/dL (5.8-8.3)
[2017-08-25] MEDS ORDERED: Potassium Chloride 20 mEq ER Tab PO STA (03:21)
[2017-08-25] MEDS ORDERED: Multivitamin (MVI) 10 ML, Thiamine 100 MG, Folic Acid 1 MG in Sodium Chloride 0.9% 1,00... IV ONE ×2 (04:17→23:37)
--- NOTE | 2017-08-25 04:29 | CP.PCM.HP ---
<Bhavik Adam - Last Filed: 08/25/17 05:32> History of Present Illness - History of Present Illness History of Present Illness: This is a 37 year old male with a past medical history of alcohol abuse that comes into the emergency department complaining of headache and dizziness for one day. The patient recently was discharged from the emergency department for the same complaints this morning. The patient reports that last time he had a alcohol drink was three days ago. The patient denies any chest pain, shortness of breath, lightheadedness, changes in vision, nausea, vomiting, constipation, diarrhea, fevers, chills, sick contacts, or any other complaints. PMD: None Past medical history: See HPI Medications: None Past surgical history: Denies Social history: Currently drinks 6-8 24oz beers a day. Admits to occasional smoking. Allergies: NKDA Present on Admission - Present on Admission Any Indicators Present on Admission: No Review of Systems - Constitutional Constitutional: absent: Chills, Daytime Sleepiness, Increased Appetite, Weight Loss, Weakness - EENT Eyes: absent: Blurred Vision, Change in Vision, Decreased Night Vision, Irritation Ears: Disequilibrium, Dizziness. absent: Decreased Hearing, Ear Discharge, Ear Pain, Tinnitus Nose/Mouth/Throat: absent: Nasal Congestion, Nasal Discharge, Sinus Pressure, Hoarsness, Sore Throat, Throat Swelling - Cardiovascular Cardiovascular: Lightheadedness. absent: Acrocyanosis, Chest Pain, Chest Pain at Rest, Leg Edema, Leg Ulcers, Orthopnea, Palpitations, Paroxysmal Nocturnal Dyspnea, Pedal Edema, Syncope - Respiratory Respiratory: absent: Cough, Dyspnea on Exertion, Wheezing, Snoring, Pain on Inspiration, Chest Congestion - Gastrointestinal Gastrointestinal: absent: Abdominal Pain, Constipation, Cramping, Diarrhea, Nausea - Musculoskeletal Musculoskeletal: absent: Arthralgias, Muscle Cramps, Muscle Weakness, Stiffness , Tingling - Integumentary Integumentary: absent: Erythema, Swelling, Unusual Bruising - Neurological Neurological: Headaches. absent: Confusion, Numbness, Focal Weakness, Vertigo, Weakness - Psychiatric Psychiatric: absent: Anxiety, Confusion - Endocrine Endocrine: absent: Fatigue, Flushing, Polydipsia, Polyphagia, Polyuria - Hematologic/Lymphatic Hematologic: absent: Easy Bleeding, Easy Bruising Past Patient History - Infectious Disease Hx of Infectious Diseases: None - Past Social History Smoking Status: Current Some Days Smoker - CARDIAC Hx Cardiac Disorders: No - PULMONARY Hx Respiratory Disorders: No - NEUROLOGICAL Hx Neurological Disorder: No - HEENT Hx HEENT Problems: No - RENAL Hx Chronic Kidney Disease: No - ENDOCRINE/METABOLIC Hx Endocrine Disorders: No - HEMATOLOGICAL/ONCOLOGICAL Hx Blood Disorders: No - INTEGUMENTARY Hx Dermatological Problems: No - MUSCULOSKELETAL/RHEUMATOLOGICAL Hx Musculoskeletal Disorders: No - GASTROINTESTINAL Hx Gastrointestinal Disorders: No - GENITOURINARY/GYNECOLOGICAL Hx Genitourinary Disorders: No - PSYCHIATRIC Hx Psychophysiologic Disorder: Yes Hx Substance Use: No - SURGICAL HISTORY Hx Surgeries: No - ANESTHESIA Hx Anesthesia: No Meds Allergies/Adverse Reactions: Allergies Allergy/AdvReac Type Severity Reaction Status Date / Time No Known Allergies Allergy Verified 08/02/17 19:53 Physical Exam - Head Exam Head Exam: ATRAUMATIC, NORMAL INSPECTION, NORMOCEPHALIC - Eye Exam Eye Exam: EOMI, Normal appearance, PERRL. absent: Scleral icterus Pupil Exam: NORMAL ACCOMODATION, PERRL. absent: Unequal - ENT Exam ENT Exam: Mucous Membranes Moist, Normal Exam. absent: TM's Normal Bilaterally - Neck Exam Neck exam: Positive for: Normal Inspection. Negative for: Tenderness - Respiratory Exam Respiratory Exam: Clear to Auscultation Bilateral, NORMAL BREATHING PATTERN. absent: Chest Wall Tenderness, Rhonchi, Wheezes - Cardiovascular Exam Cardiovascular Exam: REGULAR RHYTHM, +S1, +S2. absent: Diastolic murmur, Irregular Rhythm, Systolic Murmur - GI/Abdominal Exam GI & Abdominal Exam: Normal Bowel Sounds, Soft. absent: Guarding, Mass - Neurological Exam Neurological exam: Alert, CN II-XII Intact, Oriented x3 Additional comments: Tremors noted on on the left upper extremity . - Psychiatric Exam Psychiatric exam: Normal Affect, Normal Mood - Skin Skin Exam: Dry, Intact, Warm Results - Vital Signs Recent Vital Signs: Last Vital Signs Temp 98.7 F 08/24/17 23:15 Pulse 88 08/25/17 03:15 Resp 19 08/25/17 03:15 BP 144/83 08/25/17 03:15 Pulse Ox 99 08/25/17 03:15 - Labs Result Diagrams: 08/25/17 02:45 08/24/17 23:45 Assessment & Plan - Assessment and Plan (Free Text) Assessment: This is a 37 year old male with a past medical history of etoh abuse that is being admitted for etoh abuse withdrawal. Plan: 1. Alochol abuse -Blood alcohol upon admission <10. Patient had one episode of VTach of 150's in the E.D. Given 2mg Ativan in the E.D. -Head CT done in the emergency department was negative. -Banana bag @125mls/hr. -CIWA protocols. Seizures precautions -Fall risk (Med). Aspiration precautions -Ativan 2mg Q2 PRN 2.Transaminitis -AST 464. [id number] Upon admission. -Last hepatitis panel done 07/27/17 was negative(-). -likely 2/2 to etoh abuse. -Will f/u with coags. 3. Normocytic anemia -Hemoglobin 13.8 upon admission. MCV 90.4 upon admission. -F/u with H/H. 4. Thrombocytopenia -Likely secondary to alcohol abuse. Will monitor closely. -No coagulation GI ppx -Protonix DVT/PE ppx -SCD's <Shawn Greenberg Q - Last Filed: 08/25/17 06:18> Results - Vital Signs Recent Vital Signs: Last Vital Signs Temp 98.5 F 08/25/17 05:57 Pulse 81 08/25/17 05:57 Resp 16 08/25/17 05:57 BP 147/101 H 08/25/17 05:57 Pulse Ox 99 08/25/17 05:57 - Labs Result Diagrams: 08/25/17 02:45 08/24/17 23:45 Attending/Attestation - Attestation I have personally seen and examined this patient.: Yes I have fully participated in the care of the patient.: Yes I have reviewed all pertinent clinical information: Yes Notes (Text): 08/25/17 06:16 I agree with the above mentioned note and exam with the addition of the following: Patient showing signs of alcohol withdrawal (fine tremors, sporadic episodes of hypertension/agitation). He also has transaminitis which is rising despite his T. Bili level decreasing.
[2017-08-25 06:33] LABS: BASO # 0.01 K/mm3 (0.0-2.0); BASO % 0.3 % (0.0-3.0); EOS # 0.1 (0.0-0.7); EOS % 1.8 % (1.5-5.0); GRAN # 2.23 (1.4-6.5); GRAN % 66.1 % (50.0-68.0); HEMATOCRIT 40.3 % (42.0-52.0); LYMPH # 0.7 (1.2-3.4); MEAN CELL VOLUME 90.6 fl (80.0-105.0); MEAN CORPUSCULAR HEMOGLOBIN 31.2 pg (25.0-35.0); MEAN CORPUSCULAR HGB CONC 34.5 g/dl (31.0-37.0); MEAN PLATELET VOLUME 11.5 fl (7.0-11.0); MONO # 0.3 (0.1-0.6); MONO % 9.8 % (1.0-6.0); RED CELL DISTRIBUTION WIDTH 14.2 % (11.5-14.5); WHITE BLOOD COUNT 3.4 10^3/ul (4.5-11.0)
[2017-08-25 06:43] LABS: ALB/GLOB RATIO 1.4 (1.1-1.8); ALKALINE PHOSPHATASE 74 U/L (38-126); ALT/SGPT 340 U/L (7-56); AST/SGOT 290 U/L (17-59); BILIRUBIN,TOTAL 2.5 mg/dL (0.2-1.3); BLOOD UREA NITROGEN 9 mg/dL (7-21); CALCIUM 9.3 mg/dL (8.4-10.5); CARBON DIOXIDE 29 mmol/L (21-33); CHLORIDE 102 mmol/L (95-110); GFR AFRICAN-AMERICAN > 60; GLUCOSE,RANDOM 103 mg/dL (70-110); SODIUM 139 mmol/L (132-148); TOTAL PROTEIN 7.8 g/dL (5.8-8.3)
[2017-08-25 06:51] LABS: INR 1.05 (0.93-1.08)
--- NOTE | 2017-08-25 08:11 | RAD ---
HISTORY: chest pain COMPARISON: 08/02/2017 FINDINGS: LUNGS: No active pulmonary disease. Shallow lung volume. Study rotated towards the right PLEURA: No significant pleural effusion identified, no pneumothorax apparent. CARDIOVASCULAR: Normal. OSSEOUS STRUCTURES: No significant abnormalities. VISUALIZED UPPER ABDOMEN: Normal. OTHER FINDINGS: None. IMPRESSION: No active disease.
--- NOTE | 2017-08-25 09:15 | CARD ---
APPROVED REPORT EKG Measurement Heart [id number] NV [id number] <Conclusion> Normal sinus rhythm Voltage criteria for left ventricular hypertrophy Abnormal ECG
[2017-08-26] MEDS: Pantoprazole 20 mg EC Tab PO SCH (06:13)
--- NOTE | 2017-08-26 07:45 | CP.PCM.PN ---
<Ryan Cabrera - Last Filed: 08/26/17 13:59> Subjective - Date & Time of Evaluation Date of Evaluation: 08/26/17 Time of Evaluation: 07:00 - Subjective Subjective: patient was seen and examined at bedside. patient is agitated and speaking incoherently stating that he is having auditory and visual hallucinations. overnight, per nurses the patient was agitated and was throwing objects and presented as a threat to self, staff and other patients. Objective - Vital Signs/Intake and Output Vital Signs (last 24 hours): Temp Pulse Resp BP Pulse Ox 97.6 F 79 20 128/77 99 08/26/17 06:00 08/26/17 06:00 08/26/17 06:00 08/26/17 06:00 08/26/17 06:00 Intake and Output: 08/26/17 08/26/17 06:59 18:59 Intake Total 700 Balance 700 - Medications Medications: Current Medications Multivitamins/Vitamin C 10 ml/Thiamine HCl 100 mg/ Folic Acid 1 mg/ Sodium Chloride 1,011.2 mls @ 100 mls/hr IV .Q10H7M ONE Stop: 08/26/17 09:43 Last Admin: 08/26/17 01:42 Dose: 100 mls/hr Lorazepam (Ativan) 2 mg IVP Q2 PRN; Protocol PRN Reason: Symptoms of alcohol withdrawl Last Admin: 08/26/17 06:52 Dose: 2 mg Lorazepam (Ativan) 2 mg IVP Q3 LACY PRN Reason: Protocol Last Admin: 08/26/17 06:37 Dose: 2 mg Pantoprazole Sodium (Protonix Ec Tab) 20 mg PO 0600 LACY Last Admin: 08/26/17 06:13 Dose: Not Given - Labs Labs: 08/25/17 06:00 08/25/17 06:00 PT 11.6 SECONDS (9.4-12.5) 08/25/17 06:00 INR 1.05 (0.93-1.08) 08/25/17 06:00 APTT 28.0 Seconds (25.1-36.5) 08/25/17 06:00 - Constitutional Appears: Well, Non-toxic, Agitated - Head Exam Head Exam: ATRAUMATIC, NORMAL INSPECTION - Eye Exam Eye Exam: EOMI, Normal appearance, PERRL Pupil Exam: NORMAL ACCOMODATION - ENT Exam ENT Exam: Mucous Membranes Moist - Neck Exam Neck Exam: Full ROM - Respiratory Exam Respiratory Exam: Clear to Ausculation Bilateral. absent: Rales, Rhonchi, Wheezes, Respiratory Distress - Cardiovascular Exam Cardiovascular Exam: Tachycardia, REGULAR RHYTHM. absent: Murmur - GI/Abdominal Exam GI & Abdominal Exam: Soft, Normal Bowel Sounds. absent: Distended, Tenderness - Extremities Exam Additional comments: 2-point UE restraints in place - Back Exam Back Exam: NORMAL INSPECTION - Neurological Exam Neurological Exam: Alert, Awake - Psychiatric Exam Psychiatric exam: Agitated - Skin Skin Exam: Normal Color, Warm - Additional Findings Additional findings: lakeshia vest and 2-pt UE restraints in place patient attempting to take the restraints off Assessment and Plan - Assessment and Plan (Free Text) Assessment: 37yo M PMH ETOH abuse presenting with ETOH withdrawal Plan: 1. ETOH withdrawal - pt agitated last night and received multiple doses of Ativan and Geodon, still agitated - lakeshia vest and 2-pt restraints applied - Banana bag @100 - CIWA protocol (CIWA score 41) - currently, tachycardia w/ HR 130-150 - ICU consult placed - Seizures precautions - Fall risk (Med). Aspiration precautions - Ativan 4mg Q4 LACY and 2mg Q2 PRN 2. Transaminitis (chronic) likely 2/2 ETOH abuse - Last hepatitis panel done 07/27/17 was negative(-) - avoid hepatotoxic meds 3. Pancytopenia likely 2/2 marrow suppression 2/2 ETOH - monitor for signs of infection or bleeding PTX/SCDs Patient was seen, examined and discussed with attending, Dr. Amanda Cabrera PGY1 <Hussain Patel B - Last Filed: 08/26/17 16:57> Objective - Vital Signs/Intake and Output Vital Signs (last 24 hours): Temp Pulse Resp BP Pulse Ox 97.6 F 69 20 128/77 99 08/26/17 06:00 08/26/17 14:00 08/26/17 06:00 08/26/17 06:00 08/26/17 06:00 Intake and Output: 08/26/17 08/26/17 06:59 18:59 Intake Total 700 1 Balance 700 1 - Medications Medications: Current Medications Dexmedetomidine HCl (Precedex 4 Mcg/Ml (100 Ml)) 400 mcg in 100 mls @ 3.629 mls /hr IV .Q24H PRN; Protocol; 0.2 MCG/KG/HR PRN Reason: Agitation Last Titration: 08/26/17 14:46 Dose: 0.4 mcg/kg/hr, 7.258 mls/hr Multivitamins/Vitamin C 10 ml/Thiamine HCl 100 mg/ Folic Acid 1 mg/ Sodium Chloride 1,011.2 mls @ 100 mls/hr IV .Q10H7M ONE Stop: 08/26/17 21:12 Last Admin: 08/26/17 12:08 Dose: 100 mls/hr Lorazepam (Ativan) 2 mg IVP Q2 PRN; Protocol PRN Reason: Symptoms of alcohol withdrawl Last Admin: 08/26/17 13:16 Dose: 2 mg Lorazepam (Ativan) 4 mg IVP Q4H PRN; Protocol PRN Reason: Symptoms of alcohol withdrawl Pantoprazole Sodium (Protonix Ec Tab) 20 mg PO 0600 LACY Last Admin: 08/26/17 06:13 Dose: Not Given - Labs Labs: 08/26/17 12:00 08/26/17 12:00 PT 11.0 SECONDS (9.4-12.5) 08/26/17 12:00 INR 1.00 (0.93-1.08) 08/26/17 12:00 APTT 26.9 Seconds (25.1-36.5) 08/26/17 12:00 Attending/Attestation - Attestation I have personally seen and examined this patient.: Yes I have fully participated in the care of the patient.: Yes I have reviewed all pertinent clinical information, including history, physical exam and plan: Yes Notes (Text): I have seen and examined the patient at bedside. Agree with the note above with the following additions/ exceptions: Briefly this is 37 year old male with history of alcohol abuse, homelessness who came for evaluation of alcohol withdrawal. Patient remained agitated overnight and went into severe withdrawal. Patient required multiple doses of ativan and geodon however remained agitated. During morning rounds, patient was found to be tachycardic, confused and was constantly trying to get off the bed. Patient is on wrist restraints and lakeshia. ICU consult was requested and patient was accepted for close observation in the unit. In the unit patient was started on precedex drip. He also has transaminitis most likely due to alcohol abuse. Hep panel negative. Will provide alcohol cessation counselling once patient is sober. Upon discharge patient will follow up with [facility] [place] [facility]. Dr Hussain Patel
[2017-08-26] MEDS ORDERED: Multivitamin (MVI) 10 ML, Thiamine 100 MG, Folic Acid 1 MG in Sodium Chloride 0.9% 1,00... IV ONE (11:06)
[2017-08-26 12:18] LABS: BASO # 0.01 K/mm3 (0.0-2.0); BASO % 0.2 % (0.0-3.0); EOS % 0.4 % (1.5-5.0); GRAN # 4.14 (1.4-6.5); GRAN % 81.8 % (50.0-68.0); HEMATOCRIT 41.5 % (42.0-52.0); LYMPH # 0.5 (1.2-3.4); LYMPH % 9.1 % (22.0-35.0); MEAN CORPUSCULAR HEMOGLOBIN 32.2 pg (25.0-35.0); MEAN CORPUSCULAR HGB CONC 34.9 g/dl (31.0-37.0); MEAN PLATELET VOLUME 11.3 fl (7.0-11.0); MONO # 0.4 (0.1-0.6); MONO % 8.5 % (1.0-6.0); RED CELL DISTRIBUTION WIDTH 14.4 % (11.5-14.5); WHITE BLOOD COUNT 5.1 10^3/ul (4.5-11.0)
[2017-08-26 12:27] LABS: ALB/GLOB RATIO 1.4 (1.1-1.8); ALKALINE PHOSPHATASE 69 U/L (38-126); ALT/SGPT 348 U/L (7-56); AST/SGOT 249 U/L (17-59); BILIRUBIN,TOTAL 1.7 mg/dL (0.2-1.3); BLOOD UREA NITROGEN 8 mg/dL (7-21); CALCIUM 8.9 mg/dL (8.4-10.5); CARBON DIOXIDE 27 mmol/L (21-33); CHLORIDE 104 mmol/L (98-107); GFR AFRICAN-AMERICAN > 60; GLUCOSE,RANDOM 154 mg/dL (70-110); POTASSIUM 3.4 mmol/L (3.6-5.0); SODIUM 140 mmol/L (132-148); TOTAL PROTEIN 7.7 g/dL (5.8-8.3)
[2017-08-26 12:39] LABS: PARTIAL THROMBOPLASTIN TIME 26.9 Seconds (25.1-36.5)
[2017-08-26] MEDS: Dexmedetomidine HCl 4mcg/ml 400 MCG/100 ML BOTTLE IV PRN (14:14)
[2017-08-26 17:33] LABS: ARTERIAL BLOOD GAS HCO3 22.9 mmol/L (21-28); ARTERIAL BLOOD GAS O2 CAPACITY 17.1 mL/dl (16-24); ARTERIAL BLOOD GAS O2 CONTENT 16.9 ML/dl (15-23); ARTERIAL BLOOD HGB O2 SAT 95.6 % (95.0-98.0); CARBOXYHEMOGLOBIN 1.9 % (0.5-1.5); HHB 1.3 % (0-5); METHEMOGLOBIN 1.2 % (0.0-3.0)
--- NOTE | 2017-08-26 23:23 | CON ---
DATE: 08/26/2017 HISTORY OF PRESENT ILLNESS: This is a 37-year-old gentleman with a history of alcoholism, who presented to [facility] yesterday with headache and dizziness. The patient was recently discharged from ER with the same complaints; however, had to return as the symptoms intensified. He reports that his last alcohol drink was about 4 days ago. The patient denied any chest pain, shortness of breath, lightheadedness, changes in vision, nausea, vomiting, constipation, diarrhea, fever, chills, sick contacts or any other complaints. PAST MEDICAL HISTORY: Just alcohol abuse. MEDICATIONS: None. PAST SURGICAL HISTORY: The patient denies. SOCIAL HISTORY: The patient drinks 6 to 8 twenty-five ounces beers a day. He admits to occasional tobacco smoking. ALLERGIES: NKDA. FAMILY HISTORY: Noncontributory. REVIEW OF SYSTEMS: A review of 12-organ systems other than mentioned in the history of present illness is negative. PHYSICAL EXAMINATION: VITAL SIGNS: Blood pressure 160/80, heart rate 79, but at the time of agitation was recorded to go up to 160, oxygen saturation 99% on room air. ENT: Head and neck is atraumatic. LUNGS: Clear to auscultation bilaterally. HEART: Regular rate and rhythm. S1 and S2 normal. ABDOMEN: Soft, nontender, and nondistended. MUSCULOSKELETAL: No C/C/E. NEUROLOGIC: The patient was seen moving all extremities spontaneously. SKIN: Moist. PSYCHIATRIC: The patient is confused, disoriented, agitated, and aggressive. LABORATORY DATA: Sodium 139, potassium 4, chloride 102, carbon dioxide 29, BUN 9, creatinine 0.7, glucose 103. AST 219 down from 464, ALT 340 down from 374, total bilirubin 2.5, alkaline phosphatase 74, lipase 148, total protein 7.8, albumin 4.6. WBC 3.4, hemoglobin 13.9, platelet count 110. Alcohol level as of two days ago less than 10. U-tox screen is negative. INR 1.05. MEDICATIONS: Normal saline 100 mL per hour; the patient will be started on Precedex drip titrated to effect with a starting dose of 0.2 mcg/kg/hour. The patient is on Ativan 4 mg IV q. 4 and 2 mg IV q. 2 on an as-needed basis, Protonix, and Geodon (Geodon will be stopped out of concern for decreased threshold for seizures). DIAGNOSTIC DATA: CT head revealed no acute intracranial hemorrhage or suspicious mass affect. Chest x-ray, no active pulmonary disease. EKG showed normal sinus rhythm, voltage criteria for left ventricular hypertrophy. No specific ischemic changes, QTc 479 milliseconds. ASSESSMENT AND PLAN: This is a 37-year-old gentleman, who presented with alcohol withdrawal with hyperadrenergic state/delirium, agitated, confused, disoriented. At the present time, the patient will be transferred to ICU. Precedex drip will be started. Ativan standing dose as well as p.r.n. will be continued. We will try non-medicamentose measures as well including optimization of his sleep patterns and circadian rhythms, frequent reorientation, one-to-one observation. We will continue to target euvolemia, euglycemia, normothermia and oxygen saturation of more than 90%. We will continue with deep venous thrombosis and gastrointestinal prophylaxis. ccm time 40 min Rudy Dawson MD MTDDimple
[2017-08-27] MEDS: Dexmedetomidine HCl 4mcg/ml 400 MCG/100 ML BOTTLE IV PRN (02:55)
[2017-08-27] MEDS: Pantoprazole 20 mg EC Tab PO SCH (05:29)
[2017-08-27 07:17] LABS: BASO # 0.03 K/mm3 (0.0-2.0); BASO % 0.7 % (0.0-3.0); EOS # 0.1 (0.0-0.7); EOS % 2.7 % (1.5-5.0); GRAN # 2.95 (1.4-6.5); GRAN % 65.2 % (50.0-68.0); HEMATOCRIT 40.9 % (42.0-52.0); LYMPH % 21.2 % (22.0-35.0); MEAN CELL VOLUME 92.7 fl (80.0-105.0); MEAN CORPUSCULAR HEMOGLOBIN 31.5 pg (25.0-35.0); MEAN PLATELET VOLUME 11.6 fl (7.0-11.0); MONO # 0.5 (0.1-0.6); MONO % 10.2 % (1.0-6.0); RED CELL DISTRIBUTION WIDTH 14.8 % (11.5-14.5); WHITE BLOOD COUNT 4.5 10^3/ul (4.5-11.0)
[2017-08-27 07:27] LABS: ALB/GLOB RATIO 1.3 (1.1-1.8); ALKALINE PHOSPHATASE 63 U/L (38-126); ALT/SGPT 319 U/L (7-56); AST/SGOT 199 U/L (17-59); BILIRUBIN,TOTAL 1.4 mg/dL (0.2-1.3); BLOOD UREA NITROGEN 9 mg/dL (7-21); CALCIUM 9.3 mg/dL (8.4-10.5); CARBON DIOXIDE 27 mmol/L (21-33); CHLORIDE 106 mmol/L (98-107); GFR AFRICAN-AMERICAN > 60; GLUCOSE,RANDOM 100 mg/dL (70-110); POTASSIUM 3.6 mmol/L (3.6-5.0); SODIUM 142 mmol/L (132-148); TOTAL PROTEIN 7.2 g/dL (5.8-8.3)
--- NOTE | 2017-08-27 11:27 | CP.PCM.PN ---
<Ryan Cabrera - Last Filed: 08/27/17 11:41> Subjective - Date & Time of Evaluation Date of Evaluation: 08/27/17 Time of Evaluation: 07:15 - Subjective Subjective: patient was seen and examined bedside in the ICU. Overnight, the nursing team states that the patient has not given them any problems and has not been agitated. The patient states that he will be looking for a job after discharge, and that he will be staying with friends for some nights while he looks for a place to rent. Patient denies visual or auditory hallucinations, chest pain, shortness of breath, abdominal pain, or tremors. Objective - Vital Signs/Intake and Output Vital Signs (last 24 hours): Temp Pulse Resp BP Pulse Ox 98.4 F 75 21 126/85 95 08/27/17 04:00 08/27/17 09:08 08/27/17 05:10 08/27/17 04:00 08/27/17 04:30 Intake and Output: 08/27/17 08/27/17 06:59 18:59 Intake Total 829 Output Total 900 Balance -71 - Medications Medications: Current Medications Chlordiazepoxide (Librium) 25 mg PO Q12H LACY PRN Reason: Protocol Dexmedetomidine HCl (Precedex 4 Mcg/Ml (100 Ml)) 400 mcg in 100 mls @ 3.629 mls /hr IV .Q24H PRN; Protocol; 0.2 MCG/KG/HR PRN Reason: Agitation Last Admin: 08/27/17 02:55 Dose: 0.3 mcg/kg/hr, 5.443 mls/hr Lorazepam (Ativan) 2 mg IVP Q2 PRN; Protocol PRN Reason: Symptoms of alcohol withdrawl Last Admin: 08/26/17 13:16 Dose: 2 mg Lorazepam (Ativan) 4 mg IVP Q4H PRN; Protocol PRN Reason: Symptoms of alcohol withdrawl Pantoprazole Sodium (Protonix Ec Tab) 20 mg PO 0600 LACY Last Admin: 08/27/17 05:29 Dose: 20 mg - Labs Labs: 08/27/17 06:30 08/27/17 06:30 PT 11.0 SECONDS (9.4-12.5) 08/26/17 12:00 INR 1.00 (0.93-1.08) 08/26/17 12:00 APTT 26.9 Seconds (25.1-36.5) 08/26/17 12:00 - Constitutional Appears: Well, Non-toxic, No Acute Distress, Other (NOT agitated) - Head Exam Head Exam: ATRAUMATIC, NORMAL INSPECTION, NORMOCEPHALIC - Eye Exam Eye Exam: EOMI, Normal appearance, PERRL Pupil Exam: NORMAL ACCOMODATION - ENT Exam ENT Exam: Mucous Membranes Moist, Normal Exam - Neck Exam Neck Exam: Normal Inspection - Respiratory Exam Respiratory Exam: Clear to Ausculation Bilateral, NORMAL BREATHING PATTERN. absent: Rales, Rhonchi, Wheezes, Respiratory Distress - Cardiovascular Exam Cardiovascular Exam: RRR, +S1, +S2. absent: Murmur - GI/Abdominal Exam GI & Abdominal Exam: Soft, Normal Bowel Sounds. absent: Distended, Tenderness - Extremities Exam Extremities Exam: Full ROM, Normal Inspection. absent: Calf Tenderness, Pedal Edema - Back Exam Additional comments: could not assess due to [place] vest - Neurological Exam Neurological Exam: Alert, Awake, Oriented x3 - Psychiatric Exam Psychiatric exam: Normal Affect, Normal Mood. absent: Agitated, Anxious - Skin Skin Exam: Normal Color, Warm - Additional Findings Additional findings: [place] vest Assessment and Plan - Assessment and Plan (Free Text) Assessment: 37yo M PMH ETOH abuse presenting with ETOH withdrawal, currently in the ICU day 2 off Precedex drip Plan: 1. ETOH withdrawal - pt remains in ICU, consider downgrading per ICU recs - Precedex drip d/c - Ativan 4mg Q4 LACY and 2mg Q2 PRN - Librium 25mg Q12 given improving transaminitis - lakeshia vest - 1:1 observation - WA protocol - Seizures precautions - Fall risk (Med). Aspiration precautions - cont educate and encourage pt to stop drinking to avoid such episodes 2. Transaminitis (chronic) likely 2/2 ETOH abuse, improving - Last hepatitis panel done 07/27/17 was negative - avoid hepatotoxic meds 3. Pancytopenia likely 2/2 marrow suppression 2/2 ETOH - monitor for signs of infection or bleeding PTX/SCDs HHD Dispo: SW consult placed Patient was seen, examined and discussed with attending, Dr. Amanda Cabrera PGY1 <Hussain Patel B - Last Filed: 08/27/17 18:46> Objective - Vital Signs/Intake and Output Vital Signs (last 24 hours): Temp Pulse Resp BP Pulse Ox 98.4 F 89 29 H 139/77 95 08/27/17 04:00 08/27/17 18:28 08/27/17 18:00 08/27/17 18:00 08/27/17 14:02 Intake and Output: 08/27/17 08/27/17 06:59 18:59 Intake Total 829 Output Total 900 1202 Balance -71 -1202 - Medications Medications: Current Medications Chlordiazepoxide (Librium) 25 mg PO Q12H LACY PRN Reason: Protocol Last Admin: 08/27/17 11:27 Dose: 25 mg Lorazepam (Ativan) 2 mg IVP Q2 PRN; Protocol PRN Reason: Symptoms of alcohol withdrawl Last Admin: 08/27/17 16:11 Dose: 2 mg Lorazepam (Ativan) 4 mg IVP Q4H PRN; Protocol PRN Reason: Symptoms of alcohol withdrawl Last Admin: 08/27/17 14:44 Dose: 4 mg Pantoprazole Sodium (Protonix Ec Tab) 20 mg PO 0600 LACY Last Admin: 08/27/17 05:29 Dose: 20 mg - Labs Labs: 08/27/17 06:30 08/27/17 06:30 PT 11.0 SECONDS (9.4-12.5) 08/26/17 12:00 INR 1.00 (0.93-1.08) 08/26/17 12:00 APTT 26.9 Seconds (25.1-36.5) 08/26/17 12:00 Attending/Attestation - Attestation I have personally seen and examined this patient.: Yes I have fully participated in the care of the patient.: Yes I have reviewed all pertinent clinical information, including history, physical exam and plan: Yes Notes (Text): I have seen and examined the patient at bedside. Agree with the note above with the following additions/ exceptions: Briefly this is 37 year old male with history of alcohol abuse, homelessness who came for evaluation of alcohol withdrawal. Patient was transferred to ICU floor for precedex drip. He appears well today. He is alert, oriented to time, place and person. He is off of precedex drip. [place] is still on. Continue ativan. He also has transaminitis most likely due to alcohol abuse. Hep panel negative. Alcohol cessation counselling provided. Upon discharge patient will follow up with [facility] clinic. Dr Hussain Patel
--- NOTE | 2017-08-27 11:33 | CP.CCUPN ---
<Delbert Thorne - Last Filed: 08/27/17 11:30> CCU Subjective - Physician Review Subjective (Free Text): 08/27/17 11:30 Delbert Thorne D.O. PGY-2, Critical Care Progress Note 37 year old male with a PMH of alcoholism who presented to [facility] [facility] ER on 08/25/17 with headache and dizziness and was transferred to the ICU from the floor for increasing agitation from alcohol withdrawal. Patient was seen and examined at bedside. Patient at this time is improving, fully oriented and able to have a full conversation. Patient states that he does not have any acute complaints. Patient overnight was on precedex drip. CCU Objective - Vital Signs / Intake & Output Vital Signs (Last 4 hours): Vital Signs Pulse 08/27/17 09:08 75 Intake and Output (Last 8hrs): Intake & Output 08/26/17 08/27/17 08/27/17 22:59 06:59 14:59 Intake Total 769 60 Output Total 900 Balance -131 60 Intake: IV 769 60 Left Antecubital 700 Right Wrist 30 Oral 0 Output: Urine 900 Urine, Voided 900 Stool 0 Other: # Voids Urine, Voided 2 - Physical Exam Head: Positive for: Atraumatic, Normocephalic Pupils: Positive for: PERRL Extroacular Muscles: Positive for: EOMI Conjunctiva: Positive for: Normal Ears: Positive for: Normal Mouth: Positive for: Moist Mucous Membranes Pharnyx: Positive for: Normal Nose (External): Positive for: Atraumatic Neck: Positive for: Normal Range of Motion Respiratory/Chest: Positive for: Clear to Auscultation, Good Air Exchange. Negative for: Respiratory Distress, Accessory Muscle Use, Wheezes, Rales, Rhonchi Cardiovascular: Positive for: Regular Rate and Rhythm, Normal S1, S2. Negative for: Murmurs, Rub, Gallop Abdomen: Positive for: Normal Bowel Sounds. Negative for: Tenderness, Distention, Peritoneal Signs Back: Positive for: Normal Inspection. Negative for: CVA Tenderness Upper Extremity: Positive for: Normal Inspection. Negative for: Cyanosis, Edema Lower Extremity: Positive for: Normal Inspection. Negative for: Edema Neurological: Positive for: GCS=15, CN II-XII Intact, Speech Normal, Motor Func Grossly Intact, Other (2-3 Hz fine UE tremor) Skin: Positive for: Warm, Dry. Negative for: Rashes Psychiatric: Positive for: Alert, Oriented x 3 - Medications Active Medications: Active Medications Generic Name Dose Route Start Last Admin Trade Name Freq PRN Reason Stop Dose Admin Chlordiazepoxide 25 mg 08/27/17 10:15 Librium PO Q12H [facility] Protocol Dexmedetomidine HCl 400 mcg in 100 mls @ 3.629 mls/hr 08/26/17 10:57 02:55 Precedex 4 Mcg/Ml (100 Ml) IV 0.3 mcg/kg/hr .Q24H PRN 5.443 mls/hr Agitation Administration Protocol 0.2 MCG/KG/HR Lorazepam 2 mg 08/25/17 04:16 08/26/17 13:16 Ativan IVP 2 mg Q2 PRN Administration Symptoms of alcohol withdrawl Protocol Lorazepam 4 mg 08/26/17 15:30 Ativan IVP Q4H PRN Symptoms of alcohol withdrawl Protocol Pantoprazole Sodium 20 mg 08/26/17 06:00 08/27/17 05:29 Protonix Ec Tab PO 20 mg 0600 [facility] Administration - Patient Studies Lab Studies: Lab Studies 08/27/17 08/27/17 08/26/17 Range/Units 06:30 06:30 17:25 WBC 4.5 (4.5-11.0) 10^3/ul RBC 4.41 (3.5-6.1) 10^6/uL Hgb 13.9 L (14.0-18.0) g/dL Hct 40.9 L (42.0-52.0) % MCV 92.7 (80.0-105.0) fl MCH 31.5 (25.0-35.0) pg MCHC 34.0 (31.0-37.0) g/dl RDW 14.8 H (11.5-14.5) % Plt Count 130 (120.0-450.0) 10^3/uL MPV 11.6 H (7.0-11.0) fl Gran % 65.2 (50.0-68.0) % Lymph % (Auto) 21.2 L (22.0-35.0) % [place] % (Auto) 10.2 H (1.0-6.0) % Eos % (Auto) 2.7 (1.5-5.0) % Baso % (Auto) 0.7 (0.0-3.0) % Gran # 2.95 (1.4-6.5) Lymph # 1.0 L (1.2-3.4) [place] # 0.5 (0.1-0.6) Eos # 0.1 (0.0-0.7) Baso # 0.03 (0.0-2.0) K/mm3 PT (9.4-12.5) SECONDS INR (0.93-1.08) APTT (25.1-36.5) Seconds pCO2 37 (35-45) mm/Hg pO2 97.0 (80-100) mm/Hg HCO3 22.9 (21-28) mmol/L ABG pH 7.40 (7.35-7.45) ABG Total CO2 24.0 (22-28) mmol.L ABG O2 Saturation 98.7 H (95-98) % ABG O2 Content 16.9 (15-23) ML/dl ABG Base Excess -1.6 (-2.0-3.0) mmol/L ABG Hemoglobin 12.5 (11.7-17.4) g/dL ABG Carboxyhemoglobin 1.9 H (0.5-1.5) % POC ABG HHb (Measured) 1.3 (0-5) % ABG Methemoglobin 1.2 (0.0-3.0) % ABG O2 Capacity 17.1 (16-24) mL/dl Hgb O2 Saturation 95.6 (95.0-98.0) % FiO2 21.0 % Sodium 142 (132-148) mmol/L Potassium 3.6 (3.6-5.0) mmol/L Chloride 106 (98-107) mmol/L Carbon Dioxide 27 (21-33) mmol/L Anion Gap 13 (10-20) BUN 9 (7-21) mg/dL Creatinine 0.6 L (0.8-1.5) mg/dL Est GFR ( Amer) > 60 Est GFR (Non-Af Amer) > 60 Random Glucose 100 (70-110) mg/dL Calcium 9.3 (8.4-10.5) mg/dL Total Bilirubin 1.4 H (0.2-1.3) mg/dL AST 199 H D (17-59) U/L ALT 319 H (7-56) U/L Alkaline Phosphatase 63 (38-126) U/L Total Protein 7.2 (5.8-8.3) g/dL Albumin 4.1 (3.0-4.8) g/dL Globulin 3.1 gm/dL Albumin/Globulin Ratio 1.3 (1.1-1.8) 08/26/17 08/26/17 08/26/17 Range/Units 12:00 12:00 12:00 WBC 5.1 D (4.5-11.0) 10^3/ul RBC 4.51 (3.5-6.1) 10^6/uL Hgb 14.5 (14.0-18.0) g/dL Hct 41.5 L (42.0-52.0) % MCV 92.0 (80.0-105.0) fl MCH 32.2 (25.0-35.0) pg MCHC 34.9 (31.0-37.0) g/dl RDW 14.4 (11.5-14.5) % Plt Count 110 L (120.0-450.0) 10^3/uL MPV 11.3 H (7.0-11.0) fl Gran % 81.8 H (50.0-68.0) % Lymph % (Auto) 9.1 L (22.0-35.0) % [place] % (Auto) 8.5 H (1.0-6.0) % Eos % (Auto) 0.4 L (1.5-5.0) % Baso % (Auto) 0.2 (0.0-3.0) % Gran # 4.14 (1.4-6.5) Lymph # 0.5 L (1.2-3.4) [place] # 0.4 (0.1-0.6) Eos # 0.0 (0.0-0.7) Baso # 0.01 (0.0-2.0) K/mm3 PT 11.0 (9.4-12.5) SECONDS INR 1.00 (0.93-1.08) APTT 26.9 (25.1-36.5) Seconds pCO2 (35-45) mm/Hg pO2 (80-100) mm/Hg HCO3 (21-28) mmol/L ABG pH (7.35-7.45) ABG Total CO2 (22-28) mmol.L ABG O2 Saturation (95-98) % ABG O2 Content (15-23) ML/dl ABG Base Excess (-2.0-3.0) mmol/L ABG Hemoglobin (11.7-17.4) g/dL ABG Carboxyhemoglobin (0.5-1.5) % POC ABG HHb (Measured) (0-5) % ABG Methemoglobin (0.0-3.0) % ABG O2 Capacity (16-24) mL/dl Hgb O2 Saturation (95.0-98.0) % FiO2 % Sodium 140 (132-148) mmol/L Potassium 3.4 L (3.6-5.0) mmol/L Chloride 104 (98-107) mmol/L Carbon Dioxide 27 (21-33) mmol/L Anion Gap 12 (10-20) BUN 8 (7-21) mg/dL Creatinine 0.6 L (0.8-1.5) mg/dL Est GFR ( Amer) > 60 Est GFR (Non-Af Amer) > 60 Random Glucose 154 H (70-110) mg/dL Calcium 8.9 (8.4-10.5) mg/dL Total Bilirubin 1.7 H (0.2-1.3) mg/dL AST 249 H (17-59) U/L ALT 348 H (7-56) U/L Alkaline Phosphatase 69 (38-126) U/L Total Protein 7.7 (5.8-8.3) g/dL Albumin 4.5 (3.0-4.8) g/dL Globulin 3.2 gm/dL Albumin/Globulin Ratio 1.4 (1.1-1.8) Laboratory Results - last 24 hr 08/26/17 08/26/17 08/26/17 12:00 12:00 12:00 WBC 5.1 D RBC 4.51 Hgb 14.5 Hct 41.5 L MCV 92.0 MCH 32.2 MCHC 34.9 RDW 14.4 Plt Count 110 L MPV 11.3 H Gran % 81.8 H Lymph % (Auto) 9.1 L [place] % (Auto) 8.5 H Eos % (Auto) 0.4 L Baso % (Auto) 0.2 Gran # 4.14 Lymph # 0.5 L [place] # 0.4 Eos # 0.0 Baso # 0.01 PT 11.0 INR 1.00 APTT 26.9 pCO2 pO2 HCO3 ABG pH ABG Total CO2 ABG O2 Saturation ABG O2 Content ABG Base Excess ABG Hemoglobin ABG Carboxyhemoglobin POC ABG HHb (Measured) ABG Methemoglobin ABG O2 Capacity Hgb O2 Saturation FiO2 Sodium 140 Potassium 3.4 L Chloride 104 Carbon Dioxide 27 Anion Gap 12 BUN 8 Creatinine 0.6 L Est GFR ( Amer) > 60 Est GFR (Non-Af Amer) > 60 Random Glucose 154 H Calcium 8.9 Total Bilirubin 1.7 H AST 249 H ALT 348 H Alkaline Phosphatase 69 Total Protein 7.7 Albumin 4.5 Globulin 3.2 Albumin/Globulin Ratio 1.4 08/26/17 08/27/17 08/27/17 17:25 06:30 06:30 WBC 4.5 RBC 4.41 Hgb 13.9 L Hct 40.9 L MCV 92.7 MCH 31.5 MCHC 34.0 RDW 14.8 H Plt Count 130 MPV 11.6 H Gran % 65.2 Lymph % (Auto) 21.2 L [place] % (Auto) 10.2 H Eos % (Auto) 2.7 Baso % (Auto) 0.7 Gran # 2.95 Lymph # 1.0 L [place] # 0.5 Eos # 0.1 Baso # 0.03 PT INR APTT pCO2 37 pO2 97.0 HCO3 22.9 ABG pH 7.40 ABG Total CO2 24.0 ABG O2 Saturation 98.7 H ABG O2 Content 16.9 ABG Base Excess -1.6 ABG Hemoglobin 12.5 ABG Carboxyhemoglobin 1.9 H POC ABG HHb (Measured) 1.3 ABG Methemoglobin 1.2 ABG O2 Capacity 17.1 Hgb O2 Saturation 95.6 FiO2 21.0 Sodium 142 Potassium 3.6 Chloride 106 Carbon Dioxide 27 Anion Gap 13 BUN 9 Creatinine 0.6 L Est GFR ( Amer) > 60 Est GFR (Non-Af Amer) > 60 Random Glucose 100 Calcium 9.3 Total Bilirubin 1.4 H AST 199 H D ALT 319 H Alkaline Phosphatase 63 Total Protein 7.2 Albumin 4.1 Globulin 3.1 Albumin/Globulin Ratio 1.3 Critical Care Progress Note - Nutrition Nutrition: Nutrition Category Date Time Status Heart Healthy Diet [DIET] Diets 08/25/17 Lunch Ordered Assessment/Plan - Assessment and Plan (Free Text) Assessment: 37 year old male with a PMH of alcoholism who was transferred to the ICU from the floor for increasing agitation from alcohol withdrawal. Plan: Neurological AAOx4, improving, still with some symptoms of alcohol withdrawal Had extended discussion with the patient about alcohol, the physiology, and how withdrawal occurs, encouraged sobriety, patient amenable Continue PRN lorazepam Added scheduled librium Continue CIWA, seizure, fall, and aspiration precautions Cardiovascular Hemodynamically stable Continue to monitor Pulmonologic Protecting airway, breathing comfortably, no acute issues GI No N/V/D On heart healthy diet Renal/Electrolytes No acute issues Swenson in place draining yellow clear urine Continue monitoring IxOs Heme No active bleeding and hemodynamically stable ID Afebrile No leukocytosis GI/DVT ppx: protonix/SCDs Dispo: discussed with primary team, patient will be transferred out of ICU to med/surg. Patient was seen and examined and case was discussed at length with attending physician. - Date & Time Date: 08/27/17 Time: 07:50 <Rudy Dawson - Last Filed: 08/27/17 15:41> CCU Objective - Vital Signs / Intake & Output Vital Signs (Last 4 hours): Vital Signs Pulse Resp Pulse Ox 08/27/17 15:00 80 17 08/27/17 14:30 79 27 H 08/27/17 14:14 100 H 08/27/17 14:13 100 H 16 08/27/17 14:12 86 25 H 08/27/17 14:11 85 28 H 08/27/17 14:10 86 26 H 08/27/17 14:09 85 91 H 08/27/17 14:08 76 21 08/27/17 14:07 71 22 08/27/17 14:06 76 22 08/27/17 14:05 75 17 08/27/17 14:04 80 18 08/27/17 14:03 91 H 23 08/27/17 14:02 81 17 95 08/27/17 14:01 76 23 08/27/17 14:00 72 25 H 08/27/17 13:59 75 20 08/27/17 13:58 76 27 H 08/27/17 13:57 89 107 H 08/27/17 13:56 72 22 08/27/17 13:55 75 23 08/27/17 13:54 77 26 H 08/27/17 13:53 72 26 H 08/27/17 13:52 74 30 H 08/27/17 13:51 81 25 H 08/27/17 13:50 81 28 H 08/27/17 13:49 77 26 H 08/27/17 13:48 80 27 H 08/27/17 13:47 75 21 08/27/17 13:46 82 28 H 08/27/17 13:45 76 32 H 08/27/17 13:44 71 50 H 08/27/17 13:43 90 64 H 08/27/17 13:42 78 23 08/27/17 13:41 77 22 08/27/17 13:40 77 24 08/27/17 13:39 92 H 30 H 08/27/17 13:38 86 08/27/17 13:37 89 52 H 08/27/17 13:36 91 H 42 H 08/27/17 13:35 87 54 H 08/27/17 12:45 94 H 24 08/27/17 12:44 95 H 20 08/27/17 12:43 89 16 08/27/17 12:42 90 08/27/17 12:41 85 22 08/27/17 12:40 89 20 08/27/17 12:39 86 23 08/27/17 12:38 87 20 08/27/17 12:37 86 29 H 08/27/17 12:36 86 22 08/27/17 12:35 85 22 08/27/17 12:34 81 25 H 08/27/17 12:33 80 45 H 08/27/17 12:32 84 16 08/27/17 12:31 81 35 H 08/27/17 12:30 84 23 08/27/17 12:29 85 23 08/27/17 12:28 89 31 H 08/27/17 12:27 78 29 H 08/27/17 12:26 73 32 H 08/27/17 12:25 76 29 H 08/27/17 12:24 85 40 H Intake and Output (Last 8hrs): Intake & Output 08/27/17 08/27/17 08/27/17 06:59 14:59 22:59 Intake Total 60 Output Total 402 Balance 60 -402 Weight 160 lb Intake: IV 60 Output: Urine 400 Urine, Voided 400 Stool 2 - Medications Active Medications: Active Medications Generic Name Dose Route Start Last Admin Trade Name Freq PRN Reason Stop Dose Admin Chlordiazepoxide 25 mg 08/27/17 10:15 08/27/17 11:27 Librium PO 25 mg Q12H [facility] Administration Protocol Lorazepam 2 mg 08/25/17 04:16 08/27/17 13:21 Ativan IVP 2 mg Q2 PRN Administration Symptoms of alcohol withdrawl Protocol Lorazepam 4 mg 08/26/17 15:30 08/27/17 14:44 Ativan IVP 4 mg Q4H PRN Administration Symptoms of alcohol withdrawl Protocol Pantoprazole Sodium 20 mg 08/26/17 06:00 08/27/17 05:29 Protonix Ec Tab PO 20 mg 0600 [facility] Administration - Patient Studies Lab Studies: Lab Studies 08/27/17 08/27/17 08/26/17 Range/Units 06:30 06:30 17:25 WBC 4.5 (4.5-11.0) 10^3/ul RBC 4.41 (3.5-6.1) 10^6/uL Hgb 13.9 L (14.0-18.0) g/dL Hct 40.9 L (42.0-52.0) % MCV 92.7 (80.0-105.0) fl MCH 31.5 (25.0-35.0) pg MCHC 34.0 (31.0-37.0) g/dl RDW 14.8 H (11.5-14.5) % Plt Count 130 (120.0-450.0) 10^3/uL MPV 11.6 H (7.0-11.0) fl Gran % 65.2 (50.0-68.0) % Lymph % (Auto) 21.2 L (22.0-35.0) % [place] % (Auto) 10.2 H (1.0-6.0) % Eos % (Auto) 2.7 (1.5-5.0) % Baso % (Auto) 0.7 (0.0-3.0) % Gran # 2.95 (1.4-6.5) Lymph # 1.0 L (1.2-3.4) [place] # 0.5 (0.1-0.6) Eos # 0.1 (0.0-0.7) Baso # 0.03 (0.0-2.0) K/mm3 pCO2 37 (35-45) mm/Hg pO2 97.0 (80-100) mm/Hg HCO3 22.9 (21-28) mmol/L ABG pH 7.40 (7.35-7.45) ABG Total CO2 24.0 (22-28) mmol.L ABG O2 Saturation 98.7 H (95-98) % ABG O2 Content 16.9 (15-23) ML/dl ABG Base Excess -1.6 (-2.0-3.0) mmol/L ABG Hemoglobin 12.5 (11.7-17.4) g/dL ABG Carboxyhemoglobin 1.9 H (0.5-1.5) % POC ABG HHb (Measured) 1.3 (0-5) % ABG Methemoglobin 1.2 (0.0-3.0) % ABG O2 Capacity 17.1 (16-24) mL/dl Hgb O2 Saturation 95.6 (95.0-98.0) % FiO2 21.0 % Sodium 142 (132-148) mmol/L Potassium 3.6 (3.6-5.0) mmol/L Chloride 106 (98-107) mmol/L Carbon Dioxide 27 (21-33) mmol/L Anion Gap 13 (10-20) BUN 9 (7-21) mg/dL Creatinine 0.6 L (0.8-1.5) mg/dL Est GFR ( Amer) > 60 Est GFR (Non-Af Amer) > 60 Random Glucose 100 (70-110) mg/dL Calcium 9.3 (8.4-10.5) mg/dL Total Bilirubin 1.4 H (0.2-1.3) mg/dL AST 199 H D (17-59) U/L ALT 319 H (7-56) U/L Alkaline Phosphatase 63 (38-126) U/L Total Protein 7.2 (5.8-8.3) g/dL Albumin 4.1 (3.0-4.8) g/dL Globulin 3.1 gm/dL Albumin/Globulin Ratio 1.3 (1.1-1.8) Laboratory Results - last 24 hr 08/26/17 08/27/17 08/27/17 17:25 06:30 06:30 WBC 4.5 RBC 4.41 Hgb 13.9 L Hct 40.9 L MCV 92.7 MCH 31.5 MCHC 34.0 RDW 14.8 H Plt Count 130 MPV 11.6 H Gran % 65.2 Lymph % (Auto) 21.2 L [place] % (Auto) 10.2 H Eos % (Auto) 2.7 Baso % (Auto) 0.7 Gran # 2.95 Lymph # 1.0 L [place] # 0.5 Eos # 0.1 Baso # 0.03 pCO2 37 pO2 97.0 HCO3 22.9 ABG pH 7.40 ABG Total CO2 24.0 ABG O2 Saturation 98.7 H ABG O2 Content 16.9 ABG Base Excess -1.6 ABG Hemoglobin 12.5 ABG Carboxyhemoglobin 1.9 H POC ABG HHb (Measured) 1.3 ABG Methemoglobin 1.2 ABG O2 Capacity 17.1 Hgb O2 Saturation 95.6 FiO2 21.0 Sodium 142 Potassium 3.6 Chloride 106 Carbon Dioxide 27 Anion Gap 13 BUN 9 Creatinine 0.6 L Est GFR ( Amer) > 60 Est GFR (Non-Af Amer) > 60 Random Glucose 100 Calcium 9.3 Total Bilirubin 1.4 H AST 199 H D ALT 319 H Alkaline Phosphatase 63 Total Protein 7.2 Albumin 4.1 Globulin 3.1 Albumin/Globulin Ratio 1.3 Critical Care Progress Note - Nutrition Nutrition: Nutrition Category Date Time Status Heart Healthy Diet [DIET] Diets 08/25/17 Lunch Ordered Attending/Attestation - Attestation I have personally seen and examined this patient.: Yes I have fully participated in the care of the patient.: Yes I have reviewed all pertinent clinical information: Yes Notes (Text): 08/27/17 15:39 37 yo with alcohol withdrawal syndrome, requring precedex drip, now weaned off. Alert and oriented x 3, on librium 25 mg PO BID, adequate oral intake and hydration, able to protect his airways. No N/V. Ok to downgrade to [employer] ccm time 40 min
[2017-08-28] MEDS: Pantoprazole 20 mg EC Tab PO SCH (06:19)
--- NOTE | 2017-08-28 12:06 | CP.PCM.PN ---
<Ryan Cabrera - Last Filed: 08/28/17 12:00> Subjective - Date & Time of Evaluation Date of Evaluation: 08/28/17 Time of Evaluation: 10:15 - Subjective Subjective: patient was seen and examined at bedside. pt is still still sedated and not able to provide history. per nurses, around 5AM, the patient was agitated and got out of bed and was walking out of the room, despite being in a lakeshia vest. MIGNON GARIBAY was called and pt needed to be restrained and medicated by Geodon and Ativan. refused librium dose and AM labs to be drawn. Objective - Vital Signs/Intake and Output Vital Signs (last 24 hours): Temp Pulse Resp BP Pulse Ox 98.9 F 80 23 126/46 L 98 08/28/17 06:00 08/28/17 11:30 08/28/17 11:30 08/28/17 11:00 08/28/17 11:00 Intake and Output: 08/28/17 08/28/17 06:59 18:59 Intake Total 2000 Output Total 1900 550 Balance 100 -550 - Medications Medications: Current Medications Chlordiazepoxide (Librium) 25 mg PO Q12H LACY PRN Reason: Protocol Last Admin: 08/27/17 21:17 Dose: 25 mg Lorazepam (Ativan) 2 mg IVP Q2 PRN; Protocol PRN Reason: Symptoms of alcohol withdrawl Last Admin: 08/27/17 16:11 Dose: 2 mg Lorazepam (Ativan) 4 mg IVP Q4H PRN; Protocol PRN Reason: Symptoms of alcohol withdrawl Last Admin: 08/28/17 09:03 Dose: 4 mg Pantoprazole Sodium (Protonix Ec Tab) 20 mg PO 0600 [facility] Last Admin: 08/28/17 06:19 Dose: 20 mg - Labs Labs: 08/27/17 06:30 08/27/17 06:30 PT 11.0 SECONDS (9.4-12.5) 08/26/17 12:00 INR 1.00 (0.93-1.08) 08/26/17 12:00 APTT 26.9 Seconds (25.1-36.5) 08/26/17 12:00 - Constitutional Appears: Well, No Acute Distress, Other (asleep) - Head Exam Head Exam: ATRAUMATIC - Eye Exam Eye Exam: EOMI, Normal appearance, PERRL - ENT Exam ENT Exam: Mucous Membranes Moist - Neck Exam Neck Exam: Full ROM - Respiratory Exam Respiratory Exam: Clear to Ausculation Bilateral, NORMAL BREATHING PATTERN. absent: Wheezes - Cardiovascular Exam Cardiovascular Exam: RRR, +S1, +S2 - GI/Abdominal Exam GI & Abdominal Exam: Soft, Normal Bowel Sounds. absent: Tenderness - Extremities Exam Extremities Exam: Full ROM - Back Exam Back Exam: NORMAL INSPECTION - Neurological Exam Additional comments: unable to assess because patient was still sedated from medication earlier - Skin Skin Exam: Normal Color, Warm Assessment and Plan - Assessment and Plan (Free Text) Assessment: 37yo M PMH ETOH abuse presenting with ETOH withdrawal, off Precedex drip, downgraded from ICU Plan: 1. ETOH withdrawal, with agitation - Ativan 2mg Q4 LACY and 4mg Q4 PRN - Librium 25mg d/c given hx transaminitis - lakeshia vest and 4-pt restraints - 1:1 observation - CIWA protocol - Seizures precautions - Fall risk (Med). Aspiration precautions 2. Transaminitis (chronic) likely 2/2 ETOH abuse, improving - pt refused labs this morning - Last hepatitis panel done 07/27/17 was negative - avoid hepatotoxic meds 3. Pancytopenia likely 2/2 marrow suppression 2/2 ETOH - monitor for signs of infection or bleeding PTX/SCDs HHD Dispo: SW consult placed Patient was seen, examined and discussed with attending, Dr. Amanda Cabrera PGY1 <Hussain Patel - Last Filed: 08/28/17 14:04> Objective - Vital Signs/Intake and Output Vital Signs (last 24 hours): Temp Pulse Resp BP Pulse Ox 98.9 F 80 23 126/46 L 98 08/28/17 06:00 08/28/17 11:30 08/28/17 11:30 08/28/17 11:00 08/28/17 11:00 Intake and Output: 08/28/17 08/28/17 06:59 18:59 Intake Total 1999 Output Total 1900 550 Balance 100 -550 - Medications Medications: Current Medications Lorazepam (Ativan) 4 mg IVP Q4H PRN; Protocol PRN Reason: Symptoms of alcohol withdrawl Last Admin: 08/28/17 12:59 Dose: 4 mg Lorazepam (Ativan) 2 mg IVP Q4H LACY PRN Reason: Protocol Pantoprazole Sodium (Protonix Ec Tab) 20 mg PO 0600 [facility] Last Admin: 08/28/17 06:19 Dose: 20 mg - Labs Labs: 08/27/17 06:30 08/27/17 06:30 PT 11.0 SECONDS (9.4-12.5) 08/26/17 12:00 INR 1.00 (0.93-1.08) 08/26/17 12:00 APTT 26.9 Seconds (25.1-36.5) 08/26/17 12:00 Attending/Attestation - Attestation I have personally seen and examined this patient.: Yes I have fully participated in the care of the patient.: Yes I have reviewed all pertinent clinical information, including history, physical exam and plan: Yes Notes (Text): I have seen and examined the patient at bedside. Agree with the note above with the following additions/ exceptions: Briefly this is 37 year old male with history of alcohol abuse, homelessness who came for evaluation of alcohol withdrawal. Patient was transferred to ICU floor for precedex drip. He has been off of precedex drip since yesterday however as per nurses he was agitated and disoriented. He was given ativan and geodon in the morning. Pateint was found to be very somnolent. He remains on lakeshia and is on 4 point restraints. Continue ativan. He also has transaminitis most likely due to alcohol abuse. Hep panel negative. Alcohol cessation counselling provided. Upon discharge patient will follow up with [facility] clinic. Dr Hussain Patel
[2017-08-28 18:37] VITALS: RESP 20
[2017-08-29 00:53] VITALS: TEMP 98.5; O2SAT 99
[2017-08-29] MEDS: Pantoprazole 20 mg EC Tab PO SCH (05:14)
[2017-08-29 07:47] LABS: HEMATOCRIT 42.8 % (42.0-52.0); MEAN CELL VOLUME 91.3 fl (80.0-105.0); MEAN PLATELET VOLUME 11.4 fl (7.0-11.0); RED CELL DISTRIBUTION WIDTH 14.6 % (11.5-14.5); WHITE BLOOD COUNT 4.9 10^3/ul (4.5-11.0)
[2017-08-29 08:03] LABS: ALB/GLOB RATIO 1.4 (1.1-1.8); ALKALINE PHOSPHATASE 81 U/L (38-126); ALT/SGPT 277 U/L (7-56); AST/SGOT 117 U/L (17-59); BILIRUBIN,TOTAL 1.7 mg/dL (0.2-1.3); BLOOD UREA NITROGEN 10 mg/dL (7-21); CALCIUM 10.1 mg/dL (8.4-10.5); CARBON DIOXIDE 25 mmol/L (21-33); CHLORIDE 103 mmol/L (98-107); GFR AFRICAN-AMERICAN > 60; GLUCOSE,RANDOM 131 mg/dL (70-110); POTASSIUM 3.8 mmol/L (3.6-5.0); SODIUM 141 mmol/L (132-148); TOTAL PROTEIN 8.4 g/dL (5.8-8.3)
[2017-08-29 10:12] VITALS: BP 132/91; PULSE 84
--- NOTE | 2017-08-30 16:40 | CP.PCM.DIS ---
<Ryan Cabrera - Last Filed: 08/30/17 16:41> Provider - Provider Date of Admission: 08/25/17 03:23 Attending physician: Mervin Caldera MD Primary care physician: Mervin Caldera MD Time Spent in preparation of Discharge (in minutes): 40 Hospital Course - Lab Results Lab Results: Micro Results 08/26/17 12:00 Naris MRSA Culture (Admit) - Final MRSA NOT DETECTED Most Recent Lab Values WBC 4.9 10^3/ul (4.5-11.0) 08/29/17 06:30 RBC 4.69 10^6/uL (3.5-6.1) 08/29/17 06:30 Hgb 15.0 g/dL (14.0-18.0) 08/29/17 06:30 Hct 42.8 % (42.0-52.0) 08/29/17 06:30 MCV 91.3 fl (80.0-105.0) 08/29/17 06:30 MCH 32.0 pg (25.0-35.0) 08/29/17 06:30 MCHC 35.0 g/dl (31.0-37.0) 08/29/17 06:30 RDW 14.6 % (11.5-14.5) H 08/29/17 06:30 Plt Count 188 10^3/uL (120.0-450.0) 08/29/17 06:30 MPV 11.4 fl (7.0-11.0) H 08/29/17 06:30 Gran % 65.2 % (50.0-68.0) 08/27/17 06:30 Lymph % (Auto) 21.2 % (22.0-35.0) L 08/27/17 06:30 Harrison % (Auto) 10.2 % (1.0-6.0) H 08/27/17 06:30 Eos % (Auto) 2.7 % (1.5-5.0) 08/27/17 06:30 Baso % (Auto) 0.7 % (0.0-3.0) 08/27/17 06:30 Gran # 2.95 (1.4-6.5) 08/27/17 06:30 Lymph # 1.0 (1.2-3.4) L 08/27/17 06:30 Harrison # 0.5 (0.1-0.6) 08/27/17 06:30 Eos # 0.1 (0.0-0.7) 08/27/17 06:30 Baso # 0.03 K/mm3 (0.0-2.0) 08/27/17 06:30 PT 11.0 SECONDS (9.4-12.5) 08/26/17 12:00 INR 1.00 (0.93-1.08) 08/26/17 12:00 APTT 26.9 Seconds (25.1-36.5) 08/26/17 12:00 pCO2 37 mm/Hg (35-45) 08/26/17 17:25 pO2 97.0 mm/Hg (80-100) 08/26/17 17:25 HCO3 22.9 mmol/L (21-28) 08/26/17 17:25 ABG pH 7.40 (7.35-7.45) 08/26/17 17:25 ABG Total CO2 24.0 mmol.L (22-28) 08/26/17 17:25 ABG O2 Saturation 98.7 % (95-98) H 08/26/17 17:25 ABG O2 Content 16.9 ML/dl (15-23) 08/26/17 17:25 ABG Base Excess -1.6 mmol/L (-2.0-3.0) 08/26/17 17:25 ABG Hemoglobin 12.5 g/dL (11.7-17.4) 08/26/17 17:25 ABG Carboxyhemoglobin 1.9 % (0.5-1.5) H 08/26/17 17:25 POC ABG HHb (Measured) 1.3 % (0-5) 08/26/17 17:25 ABG Methemoglobin 1.2 % (0.0-3.0) 08/26/17 17:25 ABG O2 Capacity 17.1 mL/dl (16-24) 08/26/17 17:25 Hgb O2 Saturation 95.6 % (95.0-98.0) 08/26/17 17:25 FiO2 21.0 % 08/26/17 17:25 Sodium 141 mmol/L (132-148) 08/29/17 06:30 Potassium 3.8 mmol/L (3.6-5.0) 08/29/17 06:30 Chloride 103 mmol/L (98-107) 08/29/17 06:30 Carbon Dioxide 25 mmol/L (21-33) 08/29/17 06:30 Anion Gap 17 (10-20) 08/29/17 06:30 BUN 10 mg/dL (7-21) 08/29/17 06:30 Creatinine 0.7 mg/dL (0.8-1.5) L 08/29/17 06:30 Est GFR ( Amer) > 60 08/29/17 06:30 Est GFR (Non-Af Amer) > 60 08/29/17 06:30 Random Glucose 131 mg/dL (70-110) H 08/29/17 06:30 Calcium 10.1 mg/dL (8.4-10.5) 08/29/17 06:30 Phosphorus 2.6 mg/dL (2.5-4.5) 08/24/17 23:45 Magnesium 2.0 mg/dL (1.7-2.2) 08/24/17 23:45 Total Bilirubin 1.7 mg/dL (0.2-1.3) H 08/29/17 06:30 AST 117 U/L (17-59) H D 08/29/17 06:30 ALT 277 U/L (7-56) H 08/29/17 06:30 Alkaline Phosphatase 81 U/L (38-126) 08/29/17 06:30 Total Protein 8.4 g/dL (5.8-8.3) H 08/29/17 06:30 Albumin 4.9 g/dL (3.0-4.8) H 08/29/17 06:30 Globulin 3.5 gm/dL 08/29/17 06:30 Albumin/Globulin Ratio 1.4 (1.1-1.8) 08/29/17 06:30 Lipase 148 U/L (23-300) 08/25/17 06:30 Urine Opiates Screen Negative (NEGATIVE) 08/25/17 02:45 Urine Methadone Screen Negative (NEGATIVE) 08/25/17 02:45 Ur Barbiturates Screen Negative (NEGATIVE) 08/25/17 02:45 Ur Phencyclidine Scrn Negative (NEGATIVE) 08/25/17 02:45 Ur Amphetamines Screen Negative (NEGATIVE) 08/25/17 02:45 U Benzodiazepines Scrn Negative (NEGATIVE) 08/25/17 02:45 U Oth Cocaine Metabols Negative (NEGATIVE) 08/25/17 02:45 U Cannabinoids Screen Negative (NEGATIVE) 08/25/17 02:45 Alcohol, Quantitative < 10 mg/dL (0-10) 08/24/17 23:45 - Hospital Course Hospital Course: Mr. Encarnacion is a 37 year old male with a past medical history of alcohol abuse w / frequent hospital visits that comes into the emergency department complaining of headache and dizziness for one day. The patient recently was discharged from the emergency department for the same complaints this morning. The patient reports that last time he had a alcohol drink was three days ago. In ED , pt was noted to have one episode in VTach in 150's on monitor however no EKG showed this rhythm. Head CT was negative. ETOH level on admission was <10. Transaminitis was noted, however, this is not a new finding and is likely due to chronic ETOH use; last hep panel 07/2017 was negative. Patient was transferred to the telemetry unit for monitoring and evaluation. CIWA protocol was initiated and Ativan/Banana bag were started. Patient was on fall risk, seizure and aspiration precautions. Overnight, the patient had hallucinations, became severely agitated and was a danger to himself, other patients and hospital staff and was medicated with Geodon and Ativan and was transferred to the ICU for severe withdrawals. The patient required restraints and was on a Precedex drip to avoid leaving the unit as he had several attempts of walking out of his room. Next day, patient came off Precedex drip and was downgraded from ICU to med-surg floor. Patient continued to improve and he was educated in depth about the risks of continuing to drink. SW referral was placed for disposition. On morning of discharge, the patient offered no complaints, and was no longer having etoh withdrawals. the patient was walked by the resident and was stable without any stumbling or swaying. the patient stated that he will stay with a friend till he finds a job and can rent a room. patient was prescribed MV, thiamine and folic acid and an appoint was made for him (and this information was all relayed in Cuban to him) on Wednesday @ 10AM in [facility] clinic. pt understands. - Date & Time of H&P Date of H&P: 08/25/17 Time of H&P: 04:25 Discharge Exam - Additional Findings Additional findings: - Constitutional Appears: Well, No Acute Distress - Head Exam Head Exam: ATRAUMATIC - Eye Exam Eye Exam: EOMI, Normal appearance, PERRL - ENT Exam ENT Exam: Mucous Membranes Moist - Neck Exam Neck Exam: Full ROM - Respiratory Exam Respiratory Exam: Clear to Ausculation Bilateral, NORMAL BREATHING PATTERN. absent: Wheezes - Cardiovascular Exam Cardiovascular Exam: RRR, +S1, +S2 - GI/Abdominal Exam GI & Abdominal Exam: Soft, Normal Bowel Sounds. absent: Tenderness - Extremities Exam Extremities Exam: Full ROM - Back Exam Back Exam: NORMAL INSPECTION - Neurological Exam Neurological Exam: Alert, Awake, Oriented x3 - Skin Skin Exam: Normal Color, War Discharge Plan - Discharge Medications Prescriptions: Folic Acid 1 mg PO DAILY #15 tab Multivitamin [Daily Key] 1 each PO DAILY #15 tablet Thiamine [Vitamin B1 Tab] 100 mg PO DAILY #15 tab - Follow Up Plan Condition: FAIR Disposition: HOME/ ROUTINE Instructions: Alcohol Intoxication (GEN), Abuse of Alcohol (DC), Fall Prevention (DC) Additional Instructions: - please follow up at [facility] clinic on Wednesday at 10AM - please stop drinking alcohol as it is damaging your liver and health - consider going to AA meetings or rehab for your alcohol abuse - if you experience any new pain or tremors or hallucinations, please return to ED for evaluation Referrals: [facility] at [facility] [Outside] - 09/01/17 10:00 am (for ETOH abuse ) PCP,NO [Family Provider] - <Mervin Caldera - Last Filed: 08/30/17 17:07> Provider - Provider Date of Admission: 08/25/17 03:23 Attending physician: Mervin Caldera MD Primary care physician: Mervin Caldera MD Hospital Course - Lab Results Lab Results: Micro Results 08/26/17 12:00 Naris MRSA Culture (Admit) - Final MRSA NOT DETECTED Most Recent Lab Values WBC 4.9 10^3/ul (4.5-11.0) 08/29/17 06:30 RBC 4.69 10^6/uL (3.5-6.1) 08/29/17 06:30 Hgb 15.0 g/dL (14.0-18.0) 08/29/17 06:30 Hct 42.8 % (42.0-52.0) 08/29/17 06:30 MCV 91.3 fl (80.0-105.0) 08/29/17 06:30 MCH 32.0 pg (25.0-35.0) 08/29/17 06:30 MCHC 35.0 g/dl (31.0-37.0) 08/29/17 06:30 RDW 14.6 % (11.5-14.5) H 08/29/17 06:30 Plt Count 188 10^3/uL (120.0-450.0) 08/29/17 06:30 MPV 11.4 fl (7.0-11.0) H 08/29/17 06:30 Gran % 65.2 % (50.0-68.0) 08/27/17 06:30 Lymph % (Auto) 21.2 % (22.0-35.0) L 08/27/17 06:30 Harrison % (Auto) 10.2 % (1.0-6.0) H 08/27/17 06:30 Eos % (Auto) 2.7 % (1.5-5.0) 08/27/17 06:30 Baso % (Auto) 0.7 % (0.0-3.0) 08/27/17 06:30 Gran # 2.95 (1.4-6.5) 08/27/17 06:30 Lymph # 1.0 (1.2-3.4) L 08/27/17 06:30 Harrison # 0.5 (0.1-0.6) 08/27/17 06:30 Eos # 0.1 (0.0-0.7) 08/27/17 06:30 Baso # 0.03 K/mm3 (0.0-2.0) 08/27/17 06:30 PT 11.0 SECONDS (9.4-12.5) 08/26/17 12:00 INR 1.00 (0.93-1.08) 08/26/17 12:00 APTT 26.9 Seconds (25.1-36.5) 08/26/17 12:00 pCO2 37 mm/Hg (35-45) 08/26/17 17:25 pO2 97.0 mm/Hg (80-100) 08/26/17 17:25 HCO3 22.9 mmol/L (21-28) 08/26/17 17:25 ABG pH 7.40 (7.35-7.45) 08/26/17 17:25 ABG Total CO2 24.0 mmol.L (22-28) 08/26/17 17:25 ABG O2 Saturation 98.7 % (95-98) H 08/26/17 17:25 ABG O2 Content 16.9 ML/dl (15-23) 08/26/17 17:25 ABG Base Excess -1.6 mmol/L (-2.0-3.0) 08/26/17 17:25 ABG Hemoglobin 12.5 g/dL (11.7-17.4) 08/26/17 17:25 ABG Carboxyhemoglobin 1.9 % (0.5-1.5) H 08/26/17 17:25 POC ABG HHb (Measured) 1.3 % (0-5) 08/26/17 17:25 ABG Methemoglobin 1.2 % (0.0-3.0) 08/26/17 17:25 ABG O2 Capacity 17.1 mL/dl (16-24) 08/26/17 17:25 Hgb O2 Saturation 95.6 % (95.0-98.0) 08/26/17 17:25 FiO2 21.0 % 08/26/17 17:25 Sodium 141 mmol/L (132-148) 08/29/17 06:30 Potassium 3.8 mmol/L (3.6-5.0) 08/29/17 06:30 Chloride 103 mmol/L (98-107) 08/29/17 06:30 Carbon Dioxide 25 mmol/L (21-33) 08/29/17 06:30 Anion Gap 17 (10-20) 08/29/17 06:30 BUN 10 mg/dL (7-21) 08/29/17 06:30 Creatinine 0.7 mg/dL (0.8-1.5) L 08/29/17 06:30 Est GFR ( Amer) > 60 08/29/17 06:30 Est GFR (Non-Af Amer) > 60 08/29/17 06:30 Random Glucose 131 mg/dL (70-110) H 08/29/17 06:30 Calcium 10.1 mg/dL (8.4-10.5) 08/29/17 06:30 Phosphorus 2.6 mg/dL (2.5-4.5) 08/24/17 23:45 Magnesium 2.0 mg/dL (1.7-2.2) 08/24/17 23:45 Total Bilirubin 1.7 mg/dL (0.2-1.3) H 08/29/17 06:30 AST 117 U/L (17-59) H D 08/29/17 06:30 ALT 277 U/L (7-56) H 08/29/17 06:30 Alkaline Phosphatase 81 U/L (38-126) 08/29/17 06:30 Total Protein 8.4 g/dL (5.8-8.3) H 08/29/17 06:30 Albumin 4.9 g/dL (3.0-4.8) H 08/29/17 06:30 Globulin 3.5 gm/dL 08/29/17 06:30 Albumin/Globulin Ratio 1.4 (1.1-1.8) 08/29/17 06:30 Lipase 148 U/L (23-300) 08/25/17 06:30 Urine Opiates Screen Negative (NEGATIVE) 08/25/17 02:45 Urine Methadone Screen Negative (NEGATIVE) 08/25/17 02:45 Ur Barbiturates Screen Negative (NEGATIVE) 08/25/17 02:45 Ur Phencyclidine Scrn Negative (NEGATIVE) 08/25/17 02:45 Ur Amphetamines Screen Negative (NEGATIVE) 08/25/17 02:45 U Benzodiazepines Scrn Negative (NEGATIVE) 08/25/17 02:45 U Oth Cocaine Metabols Negative (NEGATIVE) 08/25/17 02:45 U Cannabinoids Screen Negative (NEGATIVE) 08/25/17 02:45 Alcohol, Quantitative < 10 mg/dL (0-10) 08/24/17 23:45 Attending/Attestation - Attestation I have personally seen and examined this patient.: Yes I have fully participated in the care of the patient.: Yes I have reviewed all pertinent clinical information, including history, physical exam and plan: Yes Notes (Text): 08/30/17 17:05 attending note; Patient seen and examined with resident. Patient is a 37 year old male with history of alcohol abuse, homelessness who came for evaluation of alcohol withdrawal. Patient was treated in ICU with precedex drip. currently agitation and confusion is resolving. Patient is alert, awake and oriented. Willing to follow-up with AA meetings. Patient lives with his friends. Complete alcohol cessation is strongly advised. patient will be given appointment at [facility] clinic. Diagnosis; Alcohol abuse Elevated LFTs Noncompliance with follow-up
== END 2017-08-29 15:18 | disposition home or self-care (01) | DRG 750 ==
LOC: ED 23:00 → ERH 08-25 03:23 → 2RSO 08-25 04:52 → CCU 08-26 11:29 → 5RSO 08-28 11:43
PROVIDERS: ADMIT Internal Medicine; ATTEND Internal Medicine
DX: F10.231 Alcohol dependence with withdrawal delirium (principal); D69.59 Other secondary thrombocytopenia; D64.9 Anemia, unspecified; Z59.0 Homelessness; Z78.1 Physical restraint status

== ENCOUNTER 2017-08-31 02:05 | Emergency (ER) | payer SELFPAY ==
[2017-08-31 02:05] VITALS: BMI 27.3
--- NOTE | 2017-08-31 02:30 | ED PDOC ---
Arrival/HPI - General Chief Complaint: Alcohol Ingestion Time Seen by Provider: 08/31/17 02:07 Historian: Patient, EMS - History of Present Illness Narrative History of Present Illness (Text): 08/31/17 02:30 [place] Encarnacion is a 37 year old male, whose past medical history includes alcohol abuse, who presents to the Emergency department brought in by EMS for alcohol intoxication tonight. Patient admits to drinking alcohol and is also complaining of LUQ pain. Patient denies any fever, chills, chest pain, shortness of breath, nausea, vomiting, diarrhea, urinary symptoms, back pain, neck pain, headache, dizziness, or any other complaints. Patient was recently admitted to the hospital for alcohol withdrawal syndrome on 08/24/2017. Time/Duration: Other (tonight) Symptom Onset: Gradual Symptom Course: Unchanged Activities at Onset: Light Context: Street Past Medical History - Provider Review Nursing Documentation Reviewed: Yes - Past History Past History: Non-Contributing - Infectious Disease Hx of Infectious Diseases: None - Cardiac Hx Cardiac Disorders: No - Pulmonary Hx Respiratory Disorders: No - Neurological Hx Neurological Disorder: No - HEENT Hx HEENT Disorder: No - Renal Hx Renal Disorder: No - Endocrine/Metabolic Hx Endocrine Disorders: No - Hematological/Oncological Hx Blood Disorders: No - Integumentary Hx Dermatological Disorder: No - Musculoskeletal/Rheumatological Hx Musculoskeletal Disorders: No - Gastrointestinal Hx Gastrointestinal Disorders: No - Genitourinary/Gynecological Hx Genitourinary Disorders: No - Psychiatric Hx Psychophysiologic Disorder: Yes Hx Substance Use: No - Past Surgical History Past Surgical History: Non-Contributing - Anesthesia Hx Anesthesia: No Family/Social History - Physician Review Nursing Documentation Reviewed: Yes Family/Social History: Unknown Family HX Smoking Status: Current Some Days Smoker Hx Alcohol Use: Yes (BINGE DRINKS-LAST DRANK 10 OR MORE BEERS. HAS BEEN DRINKING 5-6 YRS.) Hx Substance Use: No Allergies/Home Meds Allergies/Adverse Reactions: Allergies No Known Allergies Allergy (Verified 08/02/17 19:53) Review of Systems - Physician Review All systems were reviewed & negative as marked: Yes - Review of Systems Constitutional: Normal. absent: Fevers Eyes: Normal ENT: Normal Respiratory: Normal. absent: SOB, Cough Cardiovascular: Normal. absent: Chest Pain Gastrointestinal: Abdominal Pain. absent: Diarrhea, Nausea, Vomiting Genitourinary Male: Normal. absent: Dysuria, Frequency, Hematuria, Urinary Output Changes Musculoskeletal: Normal. absent: Back Pain, Neck Pain Skin: Normal. absent: Rash Neurological: Normal. absent: Headache, Dizziness Endocrine: Normal Hemo/Lymphatic: Normal Psychiatric: Normal Physical Exam Vital Signs Reviewed: Yes Vital Signs Temp Pulse Resp BP Pulse Ox 08/31/17 06:06 97.7 F 80 18 125/72 100 08/31/17 03:17 98.0 F 96 H 17 150/88 99 Temperature: Afebrile Blood Pressure: Normal Pulse: Regular Respiratory Rate: Normal Appearance: Positive for: Well-Appearing, Non-Toxic, Comfortable Pain Distress: None Mental Status: Positive for: Alert and Oriented X 3 - Systems Exam Head: Present: Atraumatic, Normocephalic Pupils: Present: PERRL Extroacular Muscles: Present: EOMI Conjunctiva: Present: Normal Mouth: Present: Moist Mucous Membranes Neck: Present: Normal Range of Motion Respiratory/Chest: Present: Clear to Auscultation, Good Air Exchange. No: Respiratory Distress, Accessory Muscle Use Cardiovascular: Present: Regular Rate and Rhythm, Normal S1, S2. No: Murmurs Abdomen: Present: Tenderness (LUQ tenderness), Normal Bowel Sounds. No: Distention, Peritoneal Signs Back: Present: Normal Inspection Upper Extremity: Present: Normal Inspection. No: Cyanosis, Edema Lower Extremity: Present: Normal Inspection. No: Edema Neurological: Present: GCS=15, CN II-XII Intact, Speech Normal Skin: Present: Warm, Dry, Normal Color. No: Rashes Psychiatric: Present: Alert, Oriented x 3, Normal Insight, Normal Concentration Medical Decision Making ED Course and Treatment: 08/31/17 02:30 Impression: 37 year old male brought in for alcohol intoxication. Pt also complaining of LUQ pain. Differential Diagnosis included but are not limited to: alcohol intoxication Plan: -- EKG -- Labs, cardiac enzymes, amylase, lipase -- Urinalysis -- IV fluids -- Zofran -- Protonix -- Reassess and disposition Prior Visits: Notes and results from previous visits were reviewed. Progress Notes: 08/31/17 03:15 Reviewed EKG, NSR at 87 bpm[address] Non-specific ST/T wave changes. 08/31/17 05:36 On reevaluation, the patient feels better and is in no acute distress. Pt awake , alert, and ambulating with steady gait. Patient is stable for discharge. Patient was instructed to follow up with clinic in 1-2 days or return if symptoms persist/worsen or new concerning symptoms arise. Re-evaluation Time: 05:36 Reassessment Condition: Re-examined, Improved - Lab Interpretations Lab Results: 08/31/17 03:20 08/31/17 03:20 Lab Results 08/31/17 03:20: Alcohol, Quantitative 112 H 08/31/17 03:20: Sodium 143, Potassium 3.5 L, Chloride 103, Carbon Dioxide 26, Anion Gap 18, BUN 12, Creatinine 0.7 L, Est GFR ( Amer) > 60, Est GFR ( Non-Af Amer) > 60, Random Glucose 170 H, Calcium 9.6, Total Bilirubin 0.7, AST 118 H, ALT 247 H, Alkaline Phosphatase 86, Lactate Dehydrogenase 765 H, Total Creatine Kinase 178, Troponin I < 0.01, Total Protein 7.5, Albumin 4.5, Globulin 3.1, Albumin/Globulin Ratio 1.5, Amylase 75, Lipase 236 08/31/17 03:20: PT 10.6, INR 0.96, APTT 29.0 08/31/17 03:20: WBC 5.5, RBC 4.27, Hgb 13.7 L, Hct 39.5 L, MCV 92.5, MCH 32.1, MCHC 34.7, RDW 14.8 H, Plt Count 210, MPV 10.9, Gran % 51.5, Lymph % (Auto) 29.4 , Brantley % (Auto) 17.0 H, Eos % (Auto) 1.6, Baso % (Auto) 0.5, Gran # 2.85, Lymph # 1.6, Brantley # 0.9 H, Eos # 0.1, Baso # 0.03 I have reviewed the lab results: Yes - EKG Interpretation Interpreted by ED Physician: Yes Type: 12 lead EKG - Medication Orders Current Medication Orders: Discontinued Medications Sodium Chloride (Sodium Chloride 0.9%) 1,000 mls @ 100 mls/hr IV .Q10H STA Stop: 08/31/17 12:33 Last Admin: 08/31/17 06:08 Dose: 100 mls/hr eMAR Start Stop Document 08/31/17 06:08 NICOLE (Rec: 08/31/17 06:08 NICOLE [id number]) Intravenous Solution Start Date 08/31/17 Start Time 03:20 End Date 08/31/17 End time 06:00 Total Infusion Time 160 Ondansetron HCl (Zofran Inj) 4 mg IVP STAT STA Stop: 08/31/17 02:35 Last Admin: 08/31/17 03:24 Dose: 4 mg IVP Administration Document 08/31/17 03:24 NICOLE (Rec: 08/31/17 03:24 NICOLE [id number]) Charges for Administration # of IVP Administrations 1 Ondansetron HCl (Zofran Odt) 8 mg PO STAT STA Stop: 08/31/17 03:17 Last Admin: 08/31/17 03:19 Dose: 8 mg Pantoprazole Sodium (Protonix Inj) 40 mg IVP STAT STA Stop: 08/31/17 02:44 Last Admin: 08/31/17 03:24 Dose: 40 mg IVP Administration Document 08/31/17 03:24 NICOLE (Rec: 08/31/17 03:24 NICOEL [id number]) Charges for Administration # of IVP Administrations 1 - Scribe Statement The provider has reviewed the documentation as recorded by the Porsche Crews Provider Scribe Attestation: All medical record entries made by the Scribe were at my direction and personally dictated by me. I have reviewed the chart and agree that the record accurately reflects my personal performance of the history, physical exam, medical decision making, and the department course for this patient. I have also personally directed, reviewed, and agree with the discharge instructions and disposition. Disposition/Present on Arrival - Present on Arrival Any Indicators Present on Arrival: No History of DVT/PE: No History of Uncontrolled Diabetes: No Urinary Catheter: No History of Decub. Ulcer: No History Surgical Site Infection Following: None - Disposition Have Diagnosis and Disposition been Completed?: Yes Diagnosis: EtOH dependence, Alcohol intoxication Disposition: HOME/ ROUTINE Disposition Time: 05:36 Condition: GOOD Discharge Instructions (ExitCare): Abuse of Alcohol (ED) Referrals: PCP,NO [Primary Care Provider] - Follow up with primary Forms: [employer] (Barbadian)
[2017-08-31] MEDS ORDERED: Pantoprazole 40 MG in Sodium Chloride 0.9% 100 ML IV STA (02:34)
[2017-08-31] MEDS: Sodium Chloride 0.9% 1,000 ML IV STA ×2 (03:19→06:08)
[2017-08-31 03:35] LABS: BASO # 0.03 K/mm3 (0.0-2.0); BASO % 0.5 % (0.0-3.0); EOS # 0.1 (0.0-0.7); EOS % 1.6 % (1.5-5.0); GRAN # 2.85 (1.4-6.5); GRAN % 51.5 % (50.0-68.0); HEMATOCRIT 39.5 % (42.0-52.0); LYMPH # 1.6 (1.2-3.4); LYMPH % 29.4 % (22.0-35.0); MEAN CELL VOLUME 92.5 fl (80.0-105.0); MEAN CORPUSCULAR HEMOGLOBIN 32.1 pg (25.0-35.0); MEAN CORPUSCULAR HGB CONC 34.7 g/dl (31.0-37.0); MEAN PLATELET VOLUME 10.9 fl (7.0-11.0); MONO # 0.9 (0.1-0.6); RED CELL DISTRIBUTION WIDTH 14.8 % (11.5-14.5); WHITE BLOOD COUNT 5.5 10^3/ul (4.5-11.0)
[2017-08-31 03:46] LABS: ALB/GLOB RATIO 1.5 (1.1-1.8); ALKALINE PHOSPHATASE 86 U/L (38-126); ALT/SGPT 247 U/L (7-56); AMYLASE 75 U/L (35-125); AST/SGOT 118 U/L (17-59); BILIRUBIN,TOTAL 0.7 mg/dL (0.2-1.3); BLOOD UREA NITROGEN 12 mg/dL (7-21); CALCIUM 9.6 mg/dL (8.4-10.5); CARBON DIOXIDE 26 mmol/L (21-33); CHLORIDE 103 mmol/L (98-107); GFR AFRICAN-AMERICAN > 60; GLUCOSE,RANDOM 170 mg/dL (70-110); INR 0.96 (0.93-1.08); LIPASE 236 U/L (23-300); POTASSIUM 3.5 mmol/L (3.6-5.0); SODIUM 143 mmol/L (132-148); TOTAL PROTEIN 7.5 g/dL (5.8-8.3)
[2017-08-31 04:01] LABS: TROPONIN I < 0.01 ng/mL
[2017-08-31 06:07] VITALS: BP 125/72; PULSE 80; RESP 18; TEMP 97.7; O2SAT 100
--- NOTE | 2017-08-31 16:45 | CARD ---
APPROVED REPORT EKG Measurement Heart [id number] <Conclusion> Normal sinus rhythm Minimal voltage criteria for LVH, may be normal variant Abnormal QRS-T angle, consider primary T wave abnormality Abnormal ECG
== END 2017-08-31 06:16 | disposition home or self-care (01) ==
LOC: ED 02:05
DX: F10.229 Alcohol dependence with intoxication, unspecified (principal); F17.200 Nicotine dependence, unspecified, uncomplicated
CPT/HCPCS: 80053; 82150; 82550; 83615; 83690; 84484; 85025; 85610; 85730; 93005; 96361; 96374; 96375; 99283; C9113; G0480; J2405; J7040

== ENCOUNTER 2017-10-25 13:09 | Emergency (ER) | payer OTHER ==
[2017-10-25 13:09] VITALS: BMI 27.3
[2017-10-25 13:12] VITALS: RESP 18; TEMP 98.3
--- NOTE | 2017-10-25 13:15 | ED PDOC ---
Arrival/HPI - General Time Seen by Provider: 10/25/17 13:11 Historian: Patient - History of Present Illness Narrative History of Present Illness (Text): 10/25/17 13:11 37 y/o male, psychiatric history of alcohol abuse, nkda, FS 85, walk into the ER stated that he was drinking and fall on the head with etoh on breath. pt. stated that he has been drinking yesterday and today, fall on the yesterday with pain, been drinking beer prior to arrival, no night sweat, no dizziness, no abdominal pain, no night sweat, no dizziness, no other medical or psychological complaints. Past Medical History - Provider Review Nursing Documentation Reviewed: Yes - Past History Past History: Non-Contributing - Infectious Disease Hx of Infectious Diseases: None - Cardiac Hx Cardiac Disorders: No - Pulmonary Hx Respiratory Disorders: No - Neurological Hx Neurological Disorder: No - HEENT Hx HEENT Disorder: No - Renal Hx Renal Disorder: No - Endocrine/Metabolic Hx Endocrine Disorders: No - Hematological/Oncological Hx Blood Disorders: No - Integumentary Hx Dermatological Disorder: No - Musculoskeletal/Rheumatological Hx Musculoskeletal Disorders: No - Gastrointestinal Hx Gastrointestinal Disorders: No - Genitourinary/Gynecological Hx Genitourinary Disorders: No - Psychiatric Hx Psychophysiologic Disorder: Yes Hx Substance Use: No - Past Surgical History Past Surgical History: Non-Contributing - Anesthesia Hx Anesthesia: No Family/Social History - Physician Review Nursing Documentation Reviewed: Yes Family/Social History: Unknown Family HX Smoking Status: Current Some Days Smoker Hx Alcohol Use: Yes (BINGE DRINKS-LAST DRANK 10 OR MORE BEERS. HAS BEEN DRINKING 5-6 YRS.) Hx Substance Use: No Allergies/Home Meds Allergies/Adverse Reactions: Allergies No Known Allergies Allergy (Verified 10/25/17 13:12) Review of Systems - Review of Systems Constitutional: absent: Fatigue, Fevers Eyes: absent: Vision Changes ENT: absent: Hearing Changes Respiratory: absent: SOB, Cough Cardiovascular: absent: Chest Pain Gastrointestinal: absent: Abdominal Pain, Nausea, Vomiting Skin: absent: Rash, Pruritis Neurological: Headache. absent: Dizziness Psychiatric: absent: Anxiety, Depression, Suicidal Ideation Physical Exam Vital Signs Reviewed: Yes Vital Signs Temp Pulse Resp BP Pulse Ox 10/25/17 18:58 94 H 18 142/86 96 10/25/17 15:47 98.3 F 100 H 18 144/90 95 10/25/17 15:09 78 18 110/78 98 10/25/17 13:12 98.3 F 86 18 108/82 98 Temperature: Afebrile Blood Pressure: Normal Pulse: Regular Respiratory Rate: Normal Appearance: Positive for: Well-Appearing, Non-Toxic, Comfortable Pain Distress: Mild Mental Status: Positive for: Alert and Oriented X 3 - Systems Exam Head: Present: Atraumatic, Normocephalic Pupils: Present: PERRL Extroacular Muscles: Present: EOMI Conjunctiva: Present: Normal Mouth: Present: Moist Mucous Membranes Neck: Present: Normal Range of Motion Respiratory/Chest: Present: Clear to Auscultation, Good Air Exchange. No: Respiratory Distress, Accessory Muscle Use Cardiovascular: Present: Regular Rate and Rhythm, Normal S1, S2. No: Murmurs Abdomen: Present: Normal Bowel Sounds. No: Tenderness, Distention, Peritoneal Signs Back: Present: Normal Inspection Upper Extremity: Present: Normal Inspection. No: Cyanosis, Edema Lower Extremity: Present: Normal Inspection. No: Edema Neurological: Present: GCS=15, CN II-XII Intact, Speech Normal, Motor Func Grossly Intact, Gait Normal, Memory Normal Skin: Present: Warm, Dry, Normal Color. No: Rashes Psychiatric: Present: Alert, Oriented x 3, Normal Insight, Normal Concentration Medical Decision Making ED Course and Treatment: 10/25/17 13:18 -CT head -Observe and reassess 10/25/17 16:00 -CT head show no acute intracranial abnormalities. No significant findings to account for the clinical presentation. No significant interval change compared to the prior examination(s). -Motrin and pepcid ordered. -Observe and reassess. 10/25/17 18:59 -Pt. feels better, sober, aox4, food and drinks given, walking with normal gait and posture, no tongue fasciculation, no hand tremors, no signs of withdrawal, request to be discharged home, refused detox, no slurred speech, no cardiopulmonary complaints, no neurological complaints. -Discharge home with naproxen, pepcid, bed rest, follow up with your own pmd within 2 days, return to the ER for any new or worsening signs or symptoms. - RAD Interpretation Radiology Orders: 10/25/17 13:15 HEAD W/O CONTRAST [CT] Stat PROCEDURE: CT HEAD WITHOUT CONTRAST. HISTORY: etoh, fall, head injury COMPARISON: 08/24/2017 TECHNIQUE: Axial computed tomography images were obtained through the head/brain without intravenous contrast. Radiation dose: Total exam DLP = 762.42 mGy-cm. This CT exam was performed using one or more of the following dose reduction techniques: Automated exposure control, adjustment of the mA and/or kV according to patient size, and/or use of iterative reconstruction technique. FINDINGS: HEMORRHAGE: No intracranial hemorrhage. BRAIN: No mass effect or edema. No atrophy or chronic microvascular ischemic changes. VENTRICLES: Unremarkable. No hydrocephalus. CALVARIUM: Unremarkable. PARANASAL SINUSES: Unremarkable as visualized. No significant inflammatory changes. MASTOID AIR CELLS: Unremarkable as visualized. No inflammatory changes. OTHER FINDINGS: High right parietal scalp contusion without adjacent calvarial or underlying intracranial abnormality. IMPRESSION: No acute intracranial abnormalities. No significant findings to account for the clinical presentation. No significant interval change compared to the prior examination(s). Baffle Mounter: Radiologist - Medication Orders Current Medication Orders: Discontinued Medications Famotidine (Pepcid) 20 mg PO STAT STA Stop: 10/25/17 15:59 Last Admin: 10/25/17 16:36 Dose: 20 mg Ibuprofen (Motrin Tab) 600 mg PO STAT STA Stop: 10/25/17 15:59 Last Admin: 10/25/17 16:36 Dose: 600 mg MAR Pain/Vitals Document 10/25/17 16:36 OCS (Rec: 10/25/17 16:36 OCS [id number]) Pain Reassessment Is This A Pain ReAssessment? Yes Sleep Is patient sleeping during reassessment? No Location Pain Location Body Dry Goods Clerk Description Constant Intensity 10 Scale Used Numeric Pain Behavior Irritability Aggravating Factors ADL's - PA / WAREHOUSE ENGINEER / Resident Statement MD/DO has reviewed & agrees with the documentation as recorded. Disposition/Present on Arrival - Present on Arrival Any Indicators Present on Arrival: No History of DVT/PE: No History of Uncontrolled Diabetes: No Urinary Catheter: No History of Decub. Ulcer: No History Surgical Site Infection Following: None - Disposition Have Diagnosis and Disposition been Completed?: Yes Diagnosis: Headache, Head injury Disposition: HOME/ ROUTINE Disposition Time: 18:59 Patient Plan: Discharge Patient Problems: Current Active Problems Problem Status Onset Headache Acute Head injury Acute Condition: IMPROVED Additional Instructions: -Discharge home with naproxen, pepcid, bed rest, follow up with your own pmd within 2 days, return to the ER for any new or worsening signs or symptoms. Prescriptions: Famotidine [Pepcid] 20 mg PO BID PRN #14 tab PRN Reason: Other Naproxen 500 mg PO BID PRN #24 tab PRN Reason: Other Referrals: Abiola Santacruz, [Primary Care Provider] - Follow up with primary [facility] [Outside] - Follow up with primary Forms: WORK NOTE
--- NOTE | 2017-10-25 15:56 | CT ---
PROCEDURE: CT HEAD WITHOUT CONTRAST. HISTORY: etoh, fall, head injury COMPARISON: 08/24/2017 TECHNIQUE: Axial computed tomography images were obtained through the head/brain without intravenous contrast. Radiation dose: Total exam DLP = 762.42 mGy-cm. This CT exam was performed using one or more of the following dose reduction techniques: Automated exposure control, adjustment of the mA and/or kV according to patient size, and/or use of iterative reconstruction technique. FINDINGS: HEMORRHAGE: No intracranial hemorrhage. BRAIN: No mass effect or edema. No atrophy or chronic microvascular ischemic changes. VENTRICLES: Unremarkable. No hydrocephalus. CALVARIUM: Unremarkable. PARANASAL SINUSES: Unremarkable as visualized. No significant inflammatory changes. MASTOID AIR CELLS: Unremarkable as visualized. No inflammatory changes. OTHER FINDINGS: High right parietal scalp contusion without adjacent calvarial or underlying intracranial abnormality. IMPRESSION: No acute intracranial abnormalities. No significant findings to account for the clinical presentation. No significant interval change compared to the prior examination(s).
[2017-10-25 18:58] VITALS: BP 142/86; PULSE 94; O2SAT 96
== END 2017-10-25 19:12 | disposition home or self-care (01) ==
LOC: ED 13:09
DX: S09.90XA Unspecified injury of head, initial encounter (principal); W19.XXXA Unspecified fall, initial encounter; R51 Headache

== ENCOUNTER → 2018-07-17 | Emergency (ER) | payer OTHER ==
[2018-07-17 03:16] VITALS: BMI 34.3
[2018-07-17 03:22] VITALS: BP 119/72; PULSE 81; RESP 16; TEMP 98.2; O2SAT 99
== END | disposition left against medical advice (07) ==
LOC: ED 03:02
DX: Z02.89 Encounter for other administrative examinations (principal); F10.10 Alcohol abuse, uncomplicated

== ENCOUNTER 2018-07-30 15:36 | Emergency (ER) | payer OTHER ==
[2018-07-30 15:47] VITALS: BMI 28.3
--- NOTE | 2018-07-30 16:12 | ED PDOC ---
Arrival/HPI - General Chief Complaint: Alcohol Ingestion Time Seen by Provider: 07/30/18 15:39 Historian: Patient, EMS - History of Present Illness Narrative History of Present Illness (Text): 07/30/18 16:09 38 year old male, whose past medical history includes alcohol abuse, presents to the Emergency department brought in by EMS for public intoxication tonight. EMS informs patient was found drunk outside of a stranger's home. HPI and ROS limited due to patient's intoxication. Time/Duration: Prior to Arrival Past Medical History - Provider Review Nursing Documentation Reviewed: Yes - Past History Past History: Non-Contributing - Infectious Disease Hx of Infectious Diseases: None - Cardiac Hx Cardiac Disorders: No - Pulmonary Hx Respiratory Disorders: No - Neurological Hx Neurological Disorder: No - HEENT Hx HEENT Disorder: No - Renal Hx Renal Disorder: No - Endocrine/Metabolic Hx Endocrine Disorders: No - Hematological/Oncological Hx Blood Disorders: No - Integumentary Hx Dermatological Disorder: No - Musculoskeletal/Rheumatological Hx Musculoskeletal Disorders: No - Gastrointestinal Hx Gastrointestinal Disorders: No - Genitourinary/Gynecological Hx Genitourinary Disorders: No - Psychiatric Hx Psychophysiologic Disorder: No Hx Substance Use: No - Past Surgical History Past Surgical History: Non-Contributing - Anesthesia Hx Anesthesia: No Family/Social History - Physician Review Nursing Documentation Reviewed: Yes Family/Social History: No Known Family HX Smoking Status: Unknown If Ever Smoked Hx Alcohol Use: Yes Hx Substance Use: No Allergies/Home Meds Allergies/Adverse Reactions: Allergies No Known Allergies Allergy (Verified 07/21/18 08:31) Home Medications: Home Meds Medication Instructions Recorded Confirmed No Known Home Med 01/19/18 07/21/18 Review of Systems - Physician Review All systems were reviewed & negative as marked: Yes - Review of Systems Systems not reviewed;Unavailable: Intoxicated Physical Exam Vital Signs Reviewed: Yes Vital Signs Temp Pulse Resp BP Pulse Ox 07/30/18 15:57 98.5 F 74 20 141/74 97 Temperature: Afebrile Blood Pressure: Normal Pulse: Regular Respiratory Rate: Normal Appearance: Positive for: Well-Appearing, Non-Toxic, Comfortable Pain Distress: None Mental Status: Positive for: Alert and Oriented X 3 - Systems Exam Head: Present: Atraumatic, Normocephalic Pupils: Present: PERRL Extroacular Muscles: Present: EOMI Conjunctiva: Present: Normal Mouth: Present: Moist Mucous Membranes Neck: Present: Normal Range of Motion Respiratory/Chest: Present: Clear to Auscultation, Good Air Exchange. No: Respiratory Distress, Accessory Muscle Use Cardiovascular: Present: Regular Rate and Rhythm, Normal S1, S2. No: Murmurs Abdomen: No: Tenderness, Distention, Peritoneal Signs Back: Present: Normal Inspection Upper Extremity: Present: Normal Inspection. No: Cyanosis, Edema Lower Extremity: Present: Normal Inspection. No: Edema Neurological: Present: GCS=15, CN II-XII Intact, Speech Normal Skin: Present: Warm, Dry, Normal Color. No: Rashes Psychiatric: Present: Alert, Oriented x 3, Normal Insight, Normal Concentration Medical Decision Making ED Course and Treatment: 07/30/18 16:13 Impression: 38 year old male presents via EMS for public intoxication. Plan: -- Reassess and disposition Prior Visits: Notes and results from previous visits were reviewed. Progress Notes: - Scribe Statement The provider has reviewed the documentation as recorded by the Porsche Grady Provider Scribe Attestation: All medical record entries made by the Scribromie were at my direction and personally dictated by me. I have reviewed the chart and agree that the record accurately reflects my personal performance of the history, physical exam, medical decision making, and the department course for this patient. I have also personally directed, reviewed, and agree with the discharge instructions and disposition. Disposition/Present on Arrival - Present on Arrival Any Indicators Present on Arrival: No History of DVT/PE: No History of Uncontrolled Diabetes: No Urinary Catheter: No History of Decub. Ulcer: No History Surgical Site Infection Following: None - Disposition Have Diagnosis and Disposition been Completed?: Yes Diagnosis: Alcohol intoxication Disposition: HOME/ ROUTINE Disposition Time: 18:00 Patient Problems: Current Active Problems Problem Status Onset Alcohol intoxication Acute Condition: IMPROVED Discharge Instructions (ExitCare): Alcohol Abuse and Alcoholism (DC) Additional Instructions: ROM HOLLOWAY, thank you for letting us take care of you today. The emergency medical care you received today was directed at your acute symptoms. If you were prescribed any medication, please fill it and take as directed. It may take several days for your symptoms to resolve. Return to the Emergency Department if your symptoms worsen, do not improve, or if you have any other problems. Please contact your doctor or call one of the physicians/clinics you have been referred to that are listed on the Patient Visit Information form that is included in your discharge packet. Bring any paperwork you were given at discharge with you along with any medications you are taking to your follow up visit. Our treatment cannot replace ongoing medical care by a primary care provider outside of the emergency department. Thank you for allowing the [facility] team to be part of your care today. Do not drink too much alcohol at one time. Follow up with your doctor or the clinic this week for outpatient care. Referrals: [facility] [Outside] - Follow up with primary Marya Deleon MD [Medical Doctor] - Follow up with primary Forms: [employer] (Romanian)
[2018-07-30 20:05] VITALS: BP 131/87; PULSE 85; RESP 18; TEMP 98.2; O2SAT 100
== END 2018-07-30 19:50 | disposition home or self-care (01) ==
LOC: ED 15:36
DX: F10.129 Alcohol abuse with intoxication, unspecified (principal)

== ENCOUNTER 2018-08-05 23:38 | Emergency (ER) | payer OTHER ==
[2018-08-05 23:38] VITALS: BMI 28.3
--- NOTE | 2018-08-06 00:43 | ED PDOC ---
Arrival/HPI - General Chief Complaint: Alcohol Ingestion Time Seen by Provider: 08/05/18 23:54 Historian: Patient - History of Present Illness Narrative History of Present Illness (Text): 08/06/18 00:29 38 year old male, whose past medical history includes alcohol abuse, presents to the emergency department brought in by EMS for public intoxication tonight. Patient admits to drinking tonight and states he drinks for fun. He denies any fall or trauma. Patient denies any fever, chills, chest pain, shortness of breath, nausea, vomiting, diarrhea, urinary symptoms, back pain, neck pain, headache, dizziness, suicidal/homicidal ideation, or any other complaints. Symptom Onset: Gradual Symptom Course: Unchanged Activities at Onset: Light Context: Street Past Medical History - Provider Review Nursing Documentation Reviewed: Yes - Past History Past History: Non-Contributing - Infectious Disease Hx of Infectious Diseases: None - Cardiac Hx Cardiac Disorders: No - Pulmonary Hx Respiratory Disorders: No - Neurological Hx Neurological Disorder: No - HEENT Hx HEENT Disorder: No - Renal Hx Renal Disorder: No - Endocrine/Metabolic Hx Endocrine Disorders: No - Hematological/Oncological Hx Blood Disorders: No - Integumentary Hx Dermatological Disorder: No - Musculoskeletal/Rheumatological Hx Musculoskeletal Disorders: No - Gastrointestinal Hx Gastrointestinal Disorders: No - Genitourinary/Gynecological Hx Genitourinary Disorders: No - Psychiatric Hx Psychophysiologic Disorder: No Hx Substance Use: No - Past Surgical History Past Surgical History: Non-Contributing - Anesthesia Hx Anesthesia: No Family/Social History - Physician Review Nursing Documentation Reviewed: Yes Family/Social History: No Known Family HX Smoking Status: Unknown If Ever Smoked Hx Alcohol Use: Yes Frequency of alcohol use: Daily Hx Substance Use: No Allergies/Home Meds Allergies/Adverse Reactions: Allergies No Known Allergies Allergy (Verified 08/05/18 23:48) Home Medications: Home Meds Medication Instructions Recorded Confirmed No Known Home Med 01/19/18 08/05/18 Review of Systems - Physician Review All systems were reviewed & negative as marked: Yes - Review of Systems Constitutional: absent: Fevers, Other (Chills) Respiratory: absent: SOB Cardiovascular: absent: Chest Pain Gastrointestinal: absent: Diarrhea, Nausea, Vomiting Genitourinary Male: absent: Dysuria, Frequency, Hematuria Musculoskeletal: absent: Back Pain, Neck Pain Neurological: absent: Headache, Dizziness Physical Exam Vital Signs Reviewed: Yes Vital Signs Temp Pulse Resp BP Pulse Ox 08/05/18 23:47 98.6 F 96 H 18 125/73 96 Temperature: Afebrile Blood Pressure: Normal Pulse: Regular Respiratory Rate: Normal Appearance: Positive for: Well-Appearing, Non-Toxic, Comfortable Pain Distress: None Mental Status: Positive for: Alert and Oriented X 3 - Systems Exam Head: Present: Atraumatic, Normocephalic Pupils: Present: PERRL Extroacular Muscles: Present: EOMI Conjunctiva: Present: Normal Mouth: Present: Moist Mucous Membranes Neck: Present: Normal Range of Motion Respiratory/Chest: Present: Clear to Auscultation, Good Air Exchange. No: Respiratory Distress, Accessory Muscle Use Cardiovascular: Present: Regular Rate and Rhythm, Normal S1, S2. No: Murmurs Abdomen: No: Tenderness, Distention, Peritoneal Signs Back: Present: Normal Inspection Upper Extremity: Present: Normal Inspection. No: Cyanosis, Edema Lower Extremity: Present: Normal Inspection. No: Edema Neurological: Present: GCS=15, CN II-XII Intact, Speech Normal Skin: Present: Warm, Dry, Normal Color. No: Rashes Psychiatric: Present: Alert, Oriented x 3, Normal Insight, Normal Concentration, Intoxicated Medical Decision Making ED Course and Treatment: 08/06/18 00:32 Impression: 38 year old male presents for public intoxication. No trauma. Plan: -- Sobriety -- Reassess and disposition Prior Visits: Notes and results from previous visits were reviewed. Patient was last seen in the emergency department on 07/30/18 presents for public intoxication. Patient was discharged. Progress Notes: 08/06/18 05:47 clinically sober: steady gait strong gait, no cerebellar signs, no signs of wi thdrawal and unremarkable neuro exam w/ out meningeal signs clear for d/c home - Scribe Statement The provider has reviewed the documentation as recorded by the Porsche Devine Provider Scribe Attestation: All medical record entries made by the Scribromie were at my direction and personally dictated by me. I have reviewed the chart and agree that the record accurately reflects my personal performance of the history, physical exam, medical decision making, and the department course for this patient. I have also personally directed, reviewed, and agree with the discharge instructions and disposition. Disposition/Present on Arrival - Present on Arrival Any Indicators Present on Arrival: No History of DVT/PE: No History of Uncontrolled Diabetes: No Urinary Catheter: No History of Decub. Ulcer: No History Surgical Site Infection Following: None - Disposition Have Diagnosis and Disposition been Completed?: Yes Diagnosis: ETOH abuse Disposition: HOME/ ROUTINE Disposition Time: 05:50 Patient Problems: Current Active Problems Problem Status Onset ETOH abuse Acute Condition: GOOD Discharge Instructions (ExitCare): Alcohol Abuse and Alcoholism (DC), Effects of Alcohol on Your Health Additional Instructions: ROM HOLLOWAY, thank you for letting us take care of you today. Your provider was Darrion Carter and you were treated for ETOH. The emergency medical care you received today was directed at your acute symptoms. If you were prescribed any medication, please fill it and take as directed. It may take several days for your symptoms to resolve. Return to the Emergency Department if your symptoms worsen, do not improve, or if you have any other problems. Please contact your doctor or call one of the physicians/clinics you have been referred to that are listed on the Patient Visit Information form that is included in your discharge packet. Bring any paperwork you were given at discharge with you along with any medications you are taking to your follow up visit. Our treatment cannot replace ongoing medical care by a primary care provider outside of the emergency department. Thank you for allowing the [facility] team to be part of your care today. If you had an X-Ray or CT scan: A Radiologist will review the ED reading if any change in treatment is needed we will contact you. If you had a blood, urine, or wound culture: It will take several days for the results, if any change in treatment is needed we will contact you. If you had an STI test: It will take 48 hours for the results. Please call after 1 week if you have not heard back. Referrals: Marya Deleon MD [Medical Doctor] - Follow up with primary [facility] [Outside] - Follow up with primary [facility] at [facility] [Outside] - Follow up with primary Forms: [employer] (Gibraltarian)
[2018-08-06 02:22] VITALS: RESP 17
[2018-08-06 06:00] VITALS: BP 125/73; PULSE 82; TEMP 98.2; O2SAT 99
== END 2018-08-06 06:00 | disposition home or self-care (01) ==
LOC: ED 23:38
DX: F10.10 Alcohol abuse, uncomplicated (principal)

== ENCOUNTER 2018-08-11 17:52 | Emergency (ER) | payer OTHER ==
[2018-08-11 17:53] VITALS: BMI 28.3
--- NOTE | 2018-08-11 18:07 | ED PDOC ---
Arrival/HPI - General Time Seen by Provider: 08/11/18 18:04 Historian: Patient, EMS - History of Present Illness Narrative History of Present Illness (Text): 08/11/18 18:04 38 y/o male, no significant pmh, nkda, biba for etoh in public. Pt. admits he has been drinking couple cans of beer today, picked up by the ambulance, no head/neck/back/chest/abdomen/extremity injury, no chest pain or shortness of breath, no tremors, no palpitation, no dizziness, no night sweat, no numbness or tingling, no blood found on the scene, no other medical or psychological complaints. Past Medical History - Provider Review Nursing Documentation Reviewed: Yes - Past History Past History: Non-Contributing - Infectious Disease Hx of Infectious Diseases: None - Cardiac Hx Cardiac Disorders: No - Pulmonary Hx Respiratory Disorders: No - Neurological Hx Neurological Disorder: No - HEENT Hx HEENT Disorder: No - Renal Hx Renal Disorder: No - Endocrine/Metabolic Hx Endocrine Disorders: No - Hematological/Oncological Hx Blood Disorders: No - Integumentary Hx Dermatological Disorder: No - Musculoskeletal/Rheumatological Hx Musculoskeletal Disorders: No - Gastrointestinal Hx Gastrointestinal Disorders: No - Genitourinary/Gynecological Hx Genitourinary Disorders: No - Psychiatric Hx Psychophysiologic Disorder: No Hx Substance Use: No - Past Surgical History Past Surgical History: Non-Contributing - Anesthesia Hx Anesthesia: No Family/Social History - Physician Review Nursing Documentation Reviewed: Yes Family/Social History: Unknown Family HX Smoking Status: Unknown If Ever Smoked Hx Alcohol Use: Yes Hx Substance Use: No Allergies/Home Meds Allergies/Adverse Reactions: Allergies No Known Allergies Allergy (Verified 08/05/18 23:48) Home Medications: Home Meds Medication Instructions Recorded Confirmed No Known Home Med 01/19/18 08/05/18 Review of Systems - Review of Systems Constitutional: absent: Fatigue, Fevers Eyes: absent: Vision Changes ENT: absent: Hearing Changes Respiratory: absent: SOB, Cough Cardiovascular: absent: Chest Pain Gastrointestinal: absent: Abdominal Pain, Diarrhea, Nausea, Vomiting Musculoskeletal: absent: Arthralgias, Back Pain, Neck Pain, Myalgias Skin: absent: Rash, Pruritis, Skin Lesions Neurological: absent: Headache, Dizziness Psychiatric: absent: Anxiety, Depression, Suicidal Ideation Physical Exam - Systems Exam Head: Present: Atraumatic, Normocephalic, Other (no facial bony tenderness or swelling. ). No: Tenderness, Contusion, Swelling, Ecchymosis, Abrasion, Laceration Pupils: Present: PERRL Extroacular Muscles: Present: EOMI Conjunctiva: Present: Normal Ears: Present: NORMAL TM, Normal Canal. No: Erythema Mouth: Present: Moist Mucous Membranes Pharnyx: Present: Normal. No: ERYTHEMA, EXUDATE, TONSILS ENLARGED Nose (External): Present: Atraumatic. No: Abrasion, Contusion, Laceration Nose (Internal): Present: Normal Inspection, No Active Bleeding. No: Rhinorrhea, Septal Hematoma, Epistaxis Neck: Present: Normal Range of Motion, Trachea Midline. No: Meningeal Signs, MIDLINE TENDERNESS, Paraspinal Tenderness, Lymphadenopathy Respiratory/Chest: Present: Clear to Auscultation, Good Air Exchange. No: Respiratory Distress, Accessory Muscle Use, Wheezes, Decreased Breath Sounds, Rales, Retracting, Rhonchi, Tachypneic, Tender to Palpation Cardiovascular: Present: Regular Rate and Rhythm, Normal S1, S2. No: Murmurs Abdomen: No: Tenderness, Distention, Peritoneal Signs, Rebound, Guarding Back: Present: Normal Inspection. No: CVA Tenderness, Midline Tenderness, Paraspinal Tenderness, Pain with Leg Raise, Decubitus Ulcer Upper Extremity: Present: Normal Inspection, Normal ROM, NORMAL PULSES, Neurovascularly Intact, Capillary Refill < 2s. No: Cyanosis, Edema, Tenderness, Swelling, Deformity Lower Extremity: Present: Normal Inspection, NORMAL PULSES, Normal ROM, Neurovascularly Intact, Capillary Refill < 2 s. No: Edema, Tenderness, Swelling, Deformity Neurological: Present: GCS=15, CN II-XII Intact, Speech Normal, Motor Func Grossly Intact, Memory Normal Skin: Present: Warm, Dry, Normal Color. No: Rashes Psychiatric: Present: Alert, Oriented x 3, Normal Insight, Normal Concentration Medical Decision Making ED Course and Treatment: 08/11/18 18:10 -There is no visible signs or HPI showing signs of trauma, no emergent indication of any radiology studies at this time. -FS -Observe and reassess 08/12/18 00:57 -FS 104 -Woke up, walking with normal gait and posture, walking independently, no tremors/nausea/vomiting or signs of withdrawal. -Discharge home with education on avoiding public intoxication, follow up with up with your own pmd within 2 days, return to the ER for any new or worsening signs or symptoms. - PA / BODY ARTIST / Resident Statement MD/DO has reviewed & agrees with the documentation as recorded. Disposition/Present on Arrival - Present on Arrival Any Indicators Present on Arrival: No History of DVT/PE: No History of Uncontrolled Diabetes: No Urinary Catheter: No History of Decub. Ulcer: No History Surgical Site Infection Following: None - Disposition Have Diagnosis and Disposition been Completed?: Yes Diagnosis: EtOH dependence Disposition: HOME/ ROUTINE Disposition Time: 01:00 Patient Plan: Discharge Condition: IMPROVED Additional Instructions: -Discharge home with education on avoiding public intoxication, follow up with up with your own pmd within 2 days, return to the ER for any new or worsening signs or symptoms. Referrals: [facility] at [facility] [Outside] - Follow up with primary Forms: WORK NOTE
[2018-08-11 18:37] VITALS: BP 113/46; TEMP 98.4
[2018-08-11 23:01] VITALS: RESP 18
[2018-08-12 00:57] VITALS: PULSE 81; O2SAT 97
== END 2018-08-12 00:58 | disposition home or self-care (01) ==
LOC: ED 17:52
DX: F10.20 Alcohol dependence, uncomplicated (principal)

== ENCOUNTER 2018-08-23 17:53 | Emergency (ER) | payer OTHER ==
[2018-08-23 17:55] VITALS: BMI 29.2
[2018-08-23 18:34] VITALS: RESP 18; TEMP 97.8
[2018-08-23 18:44] LABS: BASO # 0.02 K/mm3 (0.0-2.0); BASO % 0.4 % (0.0-3.0); EOS # 0.1 (0.0-0.7); EOS % 1.5 % (1.5-5.0); GRAN # 1.91 (1.4-6.5); GRAN % 41.9 % (50.0-68.0); HEMOGLOBIN 13.8 g/dL (14.0-18.0); LYMPH # 2.1 (1.2-3.4); LYMPH % 46.8 % (22.0-35.0); MEAN CELL VOLUME 91.9 fl (80.0-105.0); MEAN CORPUSCULAR HEMOGLOBIN 31.9 pg (25.0-35.0); MEAN CORPUSCULAR HGB CONC 34.7 g/dl (31.0-37.0); MEAN PLATELET VOLUME 10.6 fl (7.0-11.0); MONO # 0.4 (0.1-0.6); MONO % 9.4 % (1.0-6.0); RBC 4.33 10^6/uL (3.5-6.1); RED CELL DISTRIBUTION WIDTH 13.6 % (11.5-14.5); WHITE BLOOD COUNT 4.6 10^3/ul (4.5-11.0)
[2018-08-23 18:51] LABS: ALB/GLOB RATIO 1.2 (1.1-1.8); ALBUMIN 4.2 g/dL (3.0-4.8); ALT/SGPT 309 U/L (7-56); AST/SGOT 219 U/L (17-59); BLOOD UREA NITROGEN 10 mg/dL (7-21); CALCIUM 8.6 mg/dL (8.4-10.5); GFR NON-AFRICAN AMERICAN > 60
--- NOTE | 2018-08-23 18:59 | ED PDOC ---
Arrival/HPI - General Historian: Patient, EMS - History of Present Illness Narrative History of Present Illness (Text): 08/23/18 18:41 38yr old male presents today brought in by ambulance for ETOH intoxication. per EMS patient was found sleeping on the ground. pt admits to drinking alcohol today. pt denies any trauma or injury. pt denies any pain. no cp or sob. denies drug use. no other complaints. <Medina High - Last Filed: 08/24/18 01:23> <Ruddy Marshall - Last Filed: 08/24/18 19:38> - General Chief Complaint: Alcohol Ingestion Time Seen by Provider: 08/23/18 18:34 Past Medical History - Provider Review Nursing Documentation Reviewed: Yes - Travel History Have you recently traveled outside [place] w/in the past 3 mons?: No - Past History Past History: Non-Contributing - Infectious Disease Hx of Infectious Diseases: None - Cardiac Hx Cardiac Disorders: No - Pulmonary Hx Respiratory Disorders: No - Neurological Hx Neurological Disorder: No - HEENT Hx HEENT Disorder: No - Renal Hx Renal Disorder: No - Endocrine/Metabolic Hx Endocrine Disorders: No - Hematological/Oncological Hx Blood Disorders: No - Integumentary Hx Dermatological Disorder: No - Musculoskeletal/Rheumatological Hx Musculoskeletal Disorders: No - Gastrointestinal Hx Gastrointestinal Disorders: No - Genitourinary/Gynecological Hx Genitourinary Disorders: No - Psychiatric Hx Psychophysiologic Disorder: No Hx Substance Use: No - Past Surgical History Past Surgical History: Non-Contributing - Anesthesia Hx Anesthesia: No <Medina High - Last Filed: 08/24/18 01:23> Family/Social History - Physician Review Nursing Documentation Reviewed: Yes Family/Social History: Unknown Family HX Smoking Status: Unknown If Ever Smoked Hx Alcohol Use: Yes Hx Substance Use: No <Medina High - Last Filed: 08/24/18 01:23> Allergies/Home Meds <Medina High - Last Filed: 08/24/18 01:23> <Ruddy Marshall - Last Filed: 08/24/18 19:38> Allergies/Adverse Reactions: Allergies No Known Allergies Allergy (Verified 08/05/18 23:48) Home Medications: Home Meds Medication Instructions Recorded Confirmed RX: No Known Home Med 01/19/18 08/05/18 Review of Systems - Review of Systems Constitutional: absent: Fatigue, Fevers Respiratory: absent: SOB, Cough Cardiovascular: absent: Chest Pain, Palpitations Gastrointestinal: absent: Abdominal Pain, Diarrhea, Vomiting Genitourinary Male: absent: Dysuria, Frequency Musculoskeletal: absent: Arthralgias, Back Pain, Neck Pain Skin: absent: Rash, Pruritis Neurological: absent: Headache, Dizziness Psychiatric: absent: Anxiety, Depression, Suicidal Ideation <Medina High - Last Filed: 08/24/18 01:23> Physical Exam Vital Signs Reviewed: Yes Vital Signs Temp Pulse Resp BP Pulse Ox 08/23/18 17:53 97.8 F 93 H 18 109/61 96 Temperature: Afebrile Blood Pressure: Normal Pulse: Regular Respiratory Rate: Normal Appearance: Positive for: Well-Appearing, Non-Toxic, Comfortable Pain Distress: None Mental Status: Positive for: other (alert) Finger Stick Blood Glucose: 110 - Systems Exam Head: Present: Atraumatic Mouth: Present: Moist Mucous Membranes Neck: Present: Normal Range of Motion. No: MIDLINE TENDERNESS, Paraspinal Tenderness Respiratory/Chest: Present: Clear to Auscultation, Good Air Exchange. No: Respiratory Distress, Accessory Muscle Use Cardiovascular: Present: Regular Rate and Rhythm, Normal S1, S2. No: Murmurs Abdomen: Present: Other (no ecchymosis). No: Tenderness, Distention, Rebound, Guarding Back: Present: Normal Inspection. No: Midline Tenderness, Paraspinal Tenderness Upper Extremity: Present: Normal ROM Lower Extremity: Present: Normal ROM Neurological: Present: GCS=15 Skin: Present: Warm, Dry, Normal Color. No: Rashes Psychiatric: Present: Alert, Intoxicated <Medina High - Last Filed: 08/24/18 01:23> Vital Signs Temp Pulse Resp BP Pulse Ox 08/23/18 17:53 97.8 F 93 H 18 109/61 96 <Ruddy Marshall - Last Filed: 08/24/18 19:38> Medical Decision Making ED Course and Treatment: 08/23/18 19:13 38yr old male presents today BIBA for alcohol intoxication. pt alert, intoxicated. admits to drinking ETOH. fingerstick; 110 cbc: wnl cmp: elevated LFTS ekg: nsr at 83b/m no st elevations cxr: wnl head ct; FINDINGS: BRAIN No acute intraparenchymal hemorrhage. No mass lesion. No abnormal enhancement. No CT evidence for acute territorial infarct. No midline shift or extra-axial collections. VENTRICLES: No hydrocephalus. ORBITS: The orbits are unremarkable. SINUSES AND MASTOIDS: The paranasal sinuses and mastoid air cells are clear. BONES: No fracture. IMPRESSION: No acute intracranial abnormality. will observe in ER for sobriety 08/23/18 22:05 pt resting comfortably in er; no distress. 08/24/18 01:23 pt is sleeping in er no distress. case signed to dr. marshall pending sobriety and re-evaluation and disposition. - RAD Interpretation Radiology Orders: 08/23/18 18:34 HEAD W/O CONTRAST [CT] Stat CHEST PORTABLE [RAD] Stat <Medina High T - Last Filed: 08/24/18 01:23> - Lab Interpretations Lab Results: 08/23/18 18:36 08/23/18 18:36 Lab Results 08/24/18 01:32: Urine Opiates Screen Negative, Urine Methadone Screen Negative, Ur Barbiturates Screen Negative, Ur Phencyclidine Scrn Negative, Ur Amphetamines Screen Negative, U Benzodiazepines Scrn Negative, U Oth Cocaine Metabols Negative, U Cannabinoids Screen Negative 08/24/18 01:32: Urine Color Yellow, Urine Appearance Clear, Urine pH 6.0, Ur Specific [place] 1.020, Urine Protein Negative, Urine Glucose (UA) Negative, Urine Ketones Negative, Urine Blood Negative, Urine Nitrate Negative, Urine Bilirubin Negative, Urine Urobilinogen 0.2, Ur Leukocyte Esterase Negative 08/23/18 18:36: Salicylates < 1 L, Acetaminophen < 10.0 L 08/23/18 18:36: WBC 4.6, RBC 4.33, Hgb 13.8 L D, Hct 39.8 L, MCV 91.9 D, MCH 31.9, MCHC 34.7, RDW 13.6, Plt Count 203, MPV 10.6, Gran % 41.9 L, Lymph % (Auto) 46.8 H, [place] % (Auto) 9.4 H, Eos % (Auto) 1.5, Baso % (Auto) 0.4, Gran # 1.91, Lymph # (Auto) 2.1, [place] # (Auto) 0.4, Eos # (Auto) 0.1, Baso # (Auto) 0.02 08/23/18 18:36: Sodium 144, Potassium 3.6, Chloride 108 H, Carbon Dioxide 25, Anion Gap 14, BUN 10, Creatinine 0.6 L, Est GFR ( Amer) > 60, Est GFR (Non-Af Amer) > 60, Random Glucose 108, Calcium 8.6, Total Bilirubin 0.4, AST 219 H D, ALT 309 H, Alkaline Phosphatase 84, Total Protein 7.8, Albumin 4.2, Globulin 3.6, Albumin/Globulin Ratio 1.2 - RAD Interpretation Radiology Orders: 08/23/18 18:34 HEAD W/O CONTRAST [CT] Stat CHEST PORTABLE [RAD] Stat <Ruddy Marshall - Last Filed: 08/24/18 19:38> - PA / MANAGER MEDIA / Resident Statement MD/DO has reviewed & agrees with the documentation as recorded. <Ruddy Marshall - Last Filed: 08/24/18 19:38> Disposition/Present on Arrival - Present on Arrival History of DVT/PE: No History of Uncontrolled Diabetes: No Urinary Catheter: No History of Decub. Ulcer: No History Surgical Site Infection Following: None - Disposition Have Diagnosis and Disposition been Completed?: Yes <Medina High - Last Filed: 08/24/18 01:23> - Present on Arrival Any Indicators Present on Arrival: No - Disposition Have Diagnosis and Disposition been Completed?: Yes Disposition Time: 05:13 <Ruddy Marshall - Last Filed: 08/24/18 19:38> - Disposition Diagnosis: Alcohol abuse Disposition: HOME/ ROUTINE Condition: GOOD Forms: [employer] (Yoruba)
[2018-08-23 19:25] LABS: ACETAMINOPHEN < 10.0 ug/ml (10.0-20.0); SALICYLATE < 1 mg/dL (2.0-20.0)
[2018-08-24 01:57] LABS: URINE APPEARANCE CLEAR (CLEAR); URINE BILIRUBIN NEGATIVE (NEGATIVE); URINE BLOOD NEGATIVE (NEGATIVE); URINE COLOR YELLOW (YELLOW); URINE GLUCOSE (UA) NEGATIVE (NEGATIVE); URINE LEUKOCYTE ESTERASE NEGATIVE Leu/uL (NEGATIVE); URINE PROTEIN NEGATIVE mg/dL (<30 mg/dL); URINE UROBILINOGEN 0.2 E.U./dL (<1 E.U./dL)
[2018-08-24 02:22] LABS: BARBITURATES, UR NEGATIVE (NEGATIVE); BENZODIAZEPINES, UR NEGATIVE (NEGATIVE); OPIATES, UR NEGATIVE (NEGATIVE); PHENCYCLIDINE, UR NEGATIVE (NEGATIVE)
--- NOTE | 2018-08-24 08:15 | CARD ---
APPROVED REPORT Date of service: 08/23/2018 EKG Measurement Heart [id number] <Conclusion> Normal sinus rhythm Moderate voltage criteria for LVH, may be normal variant NSSTW changes
--- NOTE | 2018-08-24 08:24 | CT ---
Date of service: 08/23/2018 PROCEDURE: CT HEAD WITHOUT CONTRAST. HISTORY: ETOH COMPARISON: None available. TECHNIQUE: Axial computed tomography images were obtained through the head/brain without intravenous contrast. Radiation dose: Total exam DLP = 981.96 mGy-cm. This CT exam was performed using one or more of the following dose reduction techniques: Automated exposure control, adjustment of the mA and/or kV according to patient size, and/or use of iterative reconstruction technique. FINDINGS: HEMORRHAGE: No intracranial hemorrhage. BRAIN: No mass effect or edema. No atrophy or chronic microvascular ischemic changes. VENTRICLES: Unremarkable. No hydrocephalus. CALVARIUM: Unremarkable. PARANASAL SINUSES: Unremarkable as visualized. No significant inflammatory changes. MASTOID AIR CELLS: Unremarkable as visualized. No inflammatory changes. OTHER FINDINGS: None. IMPRESSION: Normal CT of the Head.
[2018-08-24 10:58] VITALS: BP 131/76; PULSE 86
[2018-08-24 10:59] VITALS: O2SAT 97
--- NOTE | 2018-08-24 13:21 | RAD ---
Date of service: 08/23/2018 HISTORY: etoh COMPARISON: 01/11/2018 FINDINGS: LUNGS: No active pulmonary disease. PLEURA: No significant pleural effusion identified, no pneumothorax apparent. CARDIOVASCULAR: No aortic atherosclerotic calcification present OSSEOUS STRUCTURES: No significant abnormalities. VISUALIZED UPPER ABDOMEN: Normal. OTHER FINDINGS: None. IMPRESSION: No active disease.
== END 2018-08-24 06:08 | disposition home or self-care (01) ==
LOC: ED 17:53
DX: F10.129 Alcohol abuse with intoxication, unspecified (principal)

== ENCOUNTER 2018-09-26 02:44 | Emergency (ER) | payer OTHER ==
[2018-09-26 02:53] VITALS: BMI 25.7
--- NOTE | 2018-09-26 03:59 | ED PDOC ---
Arrival/HPI - General Chief Complaint: Lower Extremity Problem/Injury Time Seen by Provider: 09/26/18 02:45 Historian: Patient - History of Present Illness Narrative History of Present Illness (Text): 09/26/18 02:45 38 year old male, with no significant past medical history, who presents to the emergency department intoxicated and complaining of mild right knee pain. Patient denies any recent trauma or any other complaints. 09/26/18 06:40 Time/Duration: Prior to Arrival Symptom Onset: Sudden Symptom Course: Unchanged Activities at Onset: Light Past Medical History - Provider Review Nursing Documentation Reviewed: Yes - Past History Past History: Non-Contributing - Infectious Disease Hx of Infectious Diseases: None - Cardiac Hx Cardiac Disorders: No - Pulmonary Hx Respiratory Disorders: No - Neurological Hx Neurological Disorder: No - HEENT Hx HEENT Disorder: No - Renal Hx Renal Disorder: No - Endocrine/Metabolic Hx Endocrine Disorders: No - Hematological/Oncological Hx Blood Disorders: No - Integumentary Hx Dermatological Disorder: No - Musculoskeletal/Rheumatological Hx Musculoskeletal Disorders: No - Gastrointestinal Hx Gastrointestinal Disorders: No - Genitourinary/Gynecological Hx Genitourinary Disorders: No - Psychiatric Hx Psychophysiologic Disorder: No Hx Substance Use: No - Past Surgical History Past Surgical History: Non-Contributing - Anesthesia Hx Anesthesia: No Family/Social History - Physician Review Nursing Documentation Reviewed: Yes Family/Social History: No Known Family HX Smoking Status: Unknown If Ever Smoked Hx Alcohol Use: Yes Hx Substance Use: No Allergies/Home Meds Allergies/Adverse Reactions: Allergies No Known Allergies Allergy (Verified 09/26/18 02:53) Home Medications: Home Meds Medication Instructions Recorded Confirmed No Known Home Med 01/19/18 09/26/18 Review of Systems - Physician Review All systems were reviewed & negative as marked: Yes - Review of Systems Constitutional: Normal Musculoskeletal: Other (Patient notes mild right knee pain ). absent: Normal Physical Exam Vital Signs Reviewed: Yes Vital Signs Temp Pulse Resp BP Pulse Ox 09/26/18 02:54 98.3 F 101 H 14 147/101 H 97 Temperature: Afebrile Blood Pressure: Normal Pulse: Tachycardic Respiratory Rate: Normal Appearance: Positive for: Well-Appearing, Non-Toxic Pain Distress: Mild Mental Status: Positive for: Alert and Oriented X 3 - Systems Exam Head: Present: Atraumatic, Normocephalic Pupils: Present: PERRL Extroacular Muscles: Present: EOMI Conjunctiva: Present: Normal Mouth: Present: Moist Mucous Membranes Neck: Present: Normal Range of Motion Respiratory/Chest: Present: Clear to Auscultation, Good Air Exchange. No: Respiratory Distress, Accessory Muscle Use Cardiovascular: Present: Regular Rate and Rhythm, Normal S1, S2. No: Murmurs Abdomen: No: Tenderness, Distention, Peritoneal Signs Back: Present: Normal Inspection Upper Extremity: Present: Normal Inspection. No: Cyanosis, Edema Lower Extremity: Present: Normal Inspection. No: Edema Neurological: Present: GCS=15, CN II-XII Intact, Speech Normal Skin: Present: Warm, Dry, Normal Color. No: Rashes Psychiatric: Present: Alert, Oriented x 3, Normal Insight, Normal Concentration Medical Decision Making ED Course and Treatment: 09/26/18 02:45 Impression: 38 year old male presents to the Emergency department Plan: -- X-Ray of right knee, 2 views (AP&LAT) -- Reassess and disposition Prior Visits: Notes and results from previous visits were reviewed. Patient was last seen in [facility] emergency department on 08/23/18 brought in by ambulance for ETOH intoxication. Pt was discharged home in good condition with diagnosis of EtOH abuse. Progress Notes: - RAD Interpretation Narrative RAD Interpretations (Text): 09/26/18 05:00 X-Ray of right knee, 2 views (AP&LAT) reviewed by me, shows: negative x-ray reading. Radiology Orders: 09/26/18 03:13 KNEE RIGHT 2 VIEWS (AP & LAT) [RAD] Stat E/M Engineer: ED Physician - Scribe Statement The provider has reviewed the documentation as recorded by the Scribromie Dewitt All medical record entries made by the Scribe were at my direction and personally dictated by me. I have reviewed the chart and agree that the record accurately reflects my personal performance of the history, physical exam, medical decision making, and the department course for this patient. I have also personally directed, reviewed, and agree with the discharge instructions and disposition. Disposition/Present on Arrival - Present on Arrival Any Indicators Present on Arrival: No History of DVT/PE: No History of Uncontrolled Diabetes: No Urinary Catheter: No History of Decub. Ulcer: No History Surgical Site Infection Following: None - Disposition Have Diagnosis and Disposition been Completed?: Yes Diagnosis: EtOH dependence, Knee sprain Disposition: HOME/ ROUTINE Disposition Time: 04:00 Condition: IMPROVED Discharge Instructions (ExitCare): Knee Sprain (DC), Alcohol Abuse and Alcoholism (DC) Additional Instructions: ROM HOLLOWAY, thank you for letting us take care of you today. The emergency medical care you received today was directed at your acute symptoms. If you were prescribed any medication, please fill it and take as directed. It may take several days for your symptoms to resolve. Return to the Emergency Department if your symptoms worsen, do not improve, or if you have any other problems. Please contact your doctor or call one of the physicians/clinics you have been referred to that are listed on the Patient Visit Information form that is included in your discharge packet. Bring any paperwork you were given at discharge with you along with any medications you are taking to your follow up visit. Our treatment cannot replace ongoing medical care by a primary care provi siri outside of the emergency department. Thank you for allowing the [facility] team to be part of your care today. Follow up with the clinic this week for re-evaluation and further management. Referrals: [facility] [Outside] - Follow up with primary Marya Deleon MD [Medical Doctor] - Follow up with primary Forms: [employer] (Jamaican)
[2018-09-26 05:41] VITALS: BP 128/77; PULSE 91; RESP 18; TEMP 98.2; O2SAT 98
--- NOTE | 2018-09-26 10:55 | RAD ---
Date of service: 09/26/2018 PROCEDURE: Right Knee Radiographs. HISTORY: knee pain r/o fx COMPARISON: None. FINDINGS: BONES: Normal. No fracture. JOINTS: Normal. No osteoarthritis. JOINT EFFUSION: None. OTHER FINDINGS: None. IMPRESSION: Normal radiographs of the right knee.
== END 2018-09-26 05:41 | disposition home or self-care (01) ==
LOC: ED 02:44
DX: S83.91XA Sprain of unspecified site of right knee, initial encounter (principal); X58.XXXA Exposure to other specified factors, initial encounter; Y92.9 Unspecified place or not applicable; F10.20 Alcohol dependence, uncomplicated

== ENCOUNTER 2018-10-12 03:57 | Emergency (ER) | payer OTHER ==
[2018-10-12 04:04] VITALS: BMI 28.1
[2018-10-12 04:14] VITALS: RESP 18
--- NOTE | 2018-10-12 04:26 | ED PDOC ---
Arrival/HPI - General Chief Complaint: Alcohol Ingestion Time Seen by Provider: 10/12/18 04:06 Historian: Patient, EMS - History of Present Illness Narrative History of Present Illness (Text): 10/12/18 04:26 [place] Encarnacion is a 38 year old male, whose past medical history includes alcohol abuse, who presents to the Emergency department brought in by EMS for public intoxication tonight. Patient was found outside inebriated tonight. Limited HPI and ROS secondary to patient's alcohol intoxication. Symptom Onset: Gradual Symptom Course: Unchanged Activities at Onset: Light Context: Street Past Medical History - Provider Review Nursing Documentation Reviewed: Yes - Past History Past History: Non-Contributing - Infectious Disease Hx of Infectious Diseases: None - Cardiac Hx Cardiac Disorders: No - Pulmonary Hx Respiratory Disorders: No - Neurological Hx Neurological Disorder: No - HEENT Hx HEENT Disorder: No - Renal Hx Renal Disorder: No - Endocrine/Metabolic Hx Endocrine Disorders: No - Hematological/Oncological Hx Blood Disorders: No - Integumentary Hx Dermatological Disorder: No - Musculoskeletal/Rheumatological Hx Musculoskeletal Disorders: No - Gastrointestinal Hx Gastrointestinal Disorders: No - Genitourinary/Gynecological Hx Genitourinary Disorders: No - Psychiatric Hx Psychophysiologic Disorder: No Hx Substance Use: No - Past Surgical History Past Surgical History: Non-Contributing - Anesthesia Hx Anesthesia: No Family/Social History - Physician Review Nursing Documentation Reviewed: Yes Family/Social History: Unknown Family HX Smoking Status: Unknown If Ever Smoked Hx Alcohol Use: Yes Hx Substance Use: No Allergies/Home Meds Allergies/Adverse Reactions: Allergies No Known Allergies Allergy (Verified 10/12/18 04:04) Home Medications: Home Meds Medication Instructions Recorded Confirmed No Known Home Med 01/19/18 10/12/18 Review of Systems - Review of Systems Systems not reviewed;Unavailable: Intoxicated Physical Exam Vital Signs Reviewed: Yes Vital Signs Temp Pulse Resp BP Pulse Ox 10/12/18 04:13 98.2 F 78 18 128/84 97 Temperature: Afebrile Blood Pressure: Normal Pulse: Regular Respiratory Rate: Normal Appearance: Positive for: Well-Appearing Pain Distress: None Mental Status: Positive for: other (intoxicated) - Systems Exam Head: Present: Atraumatic, Normocephalic Pupils: Present: PERRL Extroacular Muscles: Present: EOMI Conjunctiva: Present: Normal Mouth: Present: Moist Mucous Membranes Neck: Present: Normal Range of Motion Respiratory/Chest: Present: Clear to Auscultation, Good Air Exchange. No: Respiratory Distress, Accessory Muscle Use Cardiovascular: Present: Regular Rate and Rhythm, Normal S1, S2. No: Murmurs Abdomen: No: Tenderness, Distention, Peritoneal Signs Back: Present: Normal Inspection Upper Extremity: Present: Normal Inspection. No: Cyanosis, Edema Lower Extremity: Present: Normal Inspection. No: Edema Neurological: Present: GCS=15, CN II-XII Intact, Speech Normal Skin: Present: Warm, Dry, Normal Color. No: Rashes Psychiatric: Present: Intoxicated Medical Decision Making ED Course and Treatment: 10/12/18 04:26 Impression: 38 year old male brought in by EMS for alcohol intoxication tonight. Differential Diagnosis included but are not limited to: alcohol intoxication Plan: -- Reassess and disposition Progress Notes: 10/12/18 07:[address] Rodriguez, pending sobriety, re-evaluation, and disposition. Pt in no acute distress. - Scribe Statement The provider has reviewed the documentation as recorded by the Porsche Crews Provider Scribe Attestation: All medical record entries made by the Scribe were at my direction and personally dictated by me. I have reviewed the chart and agree that the record accurately reflects my personal performance of the history, physical exam, medical decision making, and the department course for this patient. I have also personally directed, reviewed, and agree with the discharge instructions and disposition. Disposition/Present on Arrival - Present on Arrival Any Indicators Present on Arrival: No History of DVT/PE: No History of Uncontrolled Diabetes: No Urinary Catheter: No History of Decub. Ulcer: No History Surgical Site Infection Following: None - Disposition Have Diagnosis and Disposition been Completed?: No Diagnosis: Alcohol intoxication Disposition Time: 07:00 Patient Problems: Current Active Problems Problem Status Onset Alcohol intoxication Acute Condition: STABLE Referrals: PCP,NO [Primary Care Provider] - Follow up with primary Forms: [employer] (Czech)
[2018-10-12 07:13] VITALS: BP 120/72; PULSE 72; TEMP 98; O2SAT 98
--- NOTE | 2018-10-12 07:13 | ED PDOC ---
Physical Exam Vital Signs Reviewed: Yes Vital Signs Temp Pulse Resp BP Pulse Ox 10/12/18 04:13 98.2 F 78 18 128/84 97 Temperature: Afebrile Blood Pressure: Normal Pulse: Regular Respiratory Rate: Normal Appearance: Positive for: Well-Appearing, Comfortable Pain Distress: None Mental Status: Positive for: other (Intoxicatd.) - Systems Exam Head: Present: Atraumatic, Normocephalic Pupils: Present: PERRL Extroacular Muscles: Present: EOMI Conjunctiva: Present: Normal Mouth: Present: Moist Mucous Membranes Respiratory/Chest: Present: Clear to Auscultation, Good Air Exchange. No: Respiratory Distress, Accessory Muscle Use Cardiovascular: Present: Regular Rate and Rhythm, Normal S1, S2. No: Murmurs Abdomen: No: Tenderness, Distention, Peritoneal Signs Upper Extremity: Present: Normal Inspection. No: Cyanosis, Edema Lower Extremity: Present: Normal Inspection. No: Edema Neurological: Present: GCS=15, CN II-XII Intact Skin: Present: Warm, Dry, Normal Color. No: Rashes Psychiatric: Present: Alert, Intoxicated Medical Decision Making ED Course and Treatment: 10/12/18 07:08 Case endorsed to me by Dr. Strong for pending sobriety. Patient presented to the ED earlier today s/p alcohol intoxication. Patient is currently resting in bed in no acute distress. Patient denies any medical complaints. 10/12/18 8:24 Patient is alert, awake and oriented x 3. No slurred speech or ataxia. No tremors. Denies SI or HI. I advised him to please consider detox as an outpatient and he will try. - Scribe Statement The provider has reviewed the documentation as recorded by the Scribe Deb Hurd. All medical record entries made by the Scribe were at my direction and personally dictated by me. I have reviewed the chart and agree that the record accurately reflects my personal performance of the history, physical exam, medical decision making, and the department course for this patient. I have also personally directed, reviewed, and agree with the discharge instructions and disposition. Disposition/Present on Arrival - Present on Arrival Any Indicators Present on Arrival: No History of DVT/PE: No History of Uncontrolled Diabetes: No Urinary Catheter: No History of Decub. Ulcer: No History Surgical Site Infection Following: None - Disposition Have Diagnosis and Disposition been Completed?: Yes Diagnosis: Alcohol intoxication Disposition: HOME/ ROUTINE Disposition Time: 08:24 Patient Plan: Discharge Condition: IMPROVED Discharge Instructions (ExitCare): Alcohol Abuse and Alcoholism (DC) Additional Instructions: ROM HOLLOWAY, thank you for letting us take care of you today. Your provider was Chano Rodriguez DO and you were treated for Alcohol Intoxication. The emergency medical care you received today was directed at your acute symptoms. If you were prescribed any medication, please fill it and take as directed. It may take several days for your symptoms to resolve. Return to the Emergency Department if your symptoms worsen, do not improve, or if you have any other problems. Please consider an alcohol detox program. Continuing to drink like this will harm your liver and your body so I recommend an alcohol detox program. Please contact your doctor or call one of the physicians/clinics you have been referred to that are listed on the Patient Visit Information form that is included in your discharge packet. Bring any paperwork you were given at discharge with you along with any medications you are taking to your follow up visit. Our treatment cannot replace ongoing medical care by a primary care provider outside of the emergency department. Thank you for allowing the [facility] team to be part of your care today. If you had an X-Ray or CT scan: A Radiologist will review the ED reading if any change in treatment is needed we will contact you. If you had a blood, urine, or wound culture: It will take several days for the results, if any change in treatment is needed we will contact you. If you had an STI test: It will take 48 hours for the results. Please call after 1 week if you have not heard back. Referrals: PCP,NO [Primary Care Provider] - Follow up with primary Forms: [employer] (Nigerian), WORK NOTE
== END 2018-10-12 08:23 | disposition home or self-care (01) ==
LOC: ED 03:57
DX: F10.129 Alcohol abuse with intoxication, unspecified (principal)

== ENCOUNTER 2018-10-25 20:34 | Emergency (ER) | payer OTHER ==
[2018-10-25 20:36] VITALS: BMI 25.0
[2018-10-25 20:44] VITALS: TEMP 98.3
[2018-10-25 21:12] LABS: ALB/GLOB RATIO 1.2 (1.1-1.8); ALBUMIN 4.5 g/dL (3.0-4.8); ALT/SGPT 119 U/L (7-56); AST/SGOT 122 U/L (17-59); BLOOD UREA NITROGEN 11 mg/dL (7-21); CALCIUM 8.7 mg/dL (8.4-10.5); GFR NON-AFRICAN AMERICAN > 60
--- NOTE | 2018-10-25 21:29 | ED PDOC ---
Arrival/HPI <Yoseph Torrez - Last Filed: 10/26/18 06:18> - General Historian: Patient, EMS - History of Present Illness Narrative History of Present Illness (Text): 10/25/18 21:31 38yr old male, with a history of alcohol abuse, presents to the ED via EMS for medical evaluation s/p alcohol intoxication this evening. As per EMS, patient was found on the ground outside of a store intoxicated. Patient admits to drinking alcohol tonight and states asking the store employees to call the ambulance for him. Upon EMS arrival, patient expressed to go to the hospital s econdary to alcohol intoxication only. Per EMS patient stated that he was feeling lazy and sat down and then fell asleep on the ground. Patient currently denies any medical complaints. Patient denies any recent trauma or injury. Patient denies any headache, chest pain, shortness of breath, abdominal pain, back pain, neck pain, or any other complaints. Time/Duration: Prior to Arrival Symptom Onset: Gradual Symptom Course: Unchanged Activities at Onset: Light Context: Street <Medina High - Last Filed: 10/27/18 02:26> - General Chief Complaint: Alcohol Ingestion Time Seen by Provider: 10/25/18 20:36 Past Medical History - Provider Review Nursing Documentation Reviewed: Yes - Travel History Have you recently traveled outside [place] w/in the past 3 mons?: No - Past History Past History: Non-Contributing - Infectious Disease Hx of Infectious Diseases: None - Cardiac Hx Cardiac Disorders: No - Pulmonary Hx Respiratory Disorders: No - Neurological Hx Neurological Disorder: No - HEENT Hx HEENT Disorder: No - Renal Hx Renal Disorder: No - Endocrine/Metabolic Hx Endocrine Disorders: No - Hematological/Oncological Hx Blood Disorders: No - Integumentary Hx Dermatological Disorder: No - Musculoskeletal/Rheumatological Hx Musculoskeletal Disorders: No - Gastrointestinal Hx Gastrointestinal Disorders: No - Genitourinary/Gynecological Hx Genitourinary Disorders: No - Psychiatric Hx Psychophysiologic Disorder: No Hx Substance Use: No - Past Surgical History Past Surgical History: Non-Contributing - Anesthesia Hx Anesthesia: No <Medina High - Last Filed: 10/27/18 02:26> Family/Social History - Physician Review Nursing Documentation Reviewed: Yes Family/Social History: Unknown Family HX Smoking Status: Unknown If Ever Smoked Hx Alcohol Use: Yes Hx Substance Use: No <Carlos Highina T - Last Filed: 10/27/18 02:26> Allergies/Home Meds <JacoboAdrianYoseph - Last Filed: 10/26/18 06:18> <AnilaMedina T - Last Filed: 10/27/18 02:26> Allergies/Adverse Reactions: Allergies No Known Allergies Allergy (Verified 10/12/18 04:04) Home Medications: Home Meds Medication Instructions Recorded Confirmed No Known Home Med 01/19/18 10/25/18 Review of Systems - Physician Review All systems were reviewed & negative as marked: Yes - Review of Systems Systems not reviewed;Unavailable: Intoxicated Constitutional: Other (Intoxicated). absent: Fevers Respiratory: absent: SOB, Cough Cardiovascular: absent: Chest Pain, ADAMES Gastrointestinal: absent: Abdominal Pain, Vomiting Musculoskeletal: absent: Arthralgias, Back Pain, Neck Pain Skin: absent: Rash Neurological: absent: Headache Psychiatric: absent: Anxiety, Depression, Suicidal Ideation <MerrickanabelMedina Luis Armando - Last Filed: 10/27/18 02:26> Physical Exam Vital Signs Temp Pulse Resp BP Pulse Ox 10/26/18 05:16 90 18 119/80 97 10/26/18 02:47 73 18 112/73 98 10/26/18 00:36 79 18 107/68 97 10/25/18 22:02 84 20 119/69 100 10/25/18 20:43 98.3 F 91 H 19 179/71 H 96 <JacoboYoseph - Last Filed: 10/26/18 06:18> Vital Signs Reviewed: Yes Vital Signs Temp Pulse Resp BP Pulse Ox 10/25/18 20:43 98.3 F 91 H 19 179/71 H 96 Temperature: Afebrile Blood Pressure: Hypertensive Pulse: Regular Respiratory Rate: Normal Appearance: Positive for: Well-Appearing, Comfortable Pain Distress: None Mental Status: Positive for: Alert and Oriented X 3 Finger Stick Blood Glucose: 147 - Systems Exam Head: Present: Atraumatic, Normocephalic Pupils: Present: PERRL Extroacular Muscles: Present: EOMI Mouth: Present: Moist Mucous Membranes Neck: Present: Normal Range of Motion, Trachea Midline, Other (no edema, erythema, ecchymosis and no step offs). No: MIDLINE TENDERNESS, Paraspinal Tenderness Respiratory/Chest: Present: Clear to Auscultation, Good Air Exchange. No: Respiratory Distress, Accessory Muscle Use Cardiovascular: Present: Regular Rate and Rhythm, Normal S1, S2. No: Murmurs Abdomen: Present: Normal Bowel Sounds, Other (no ecchymosis). No: Tenderness, Distention, Peritoneal Signs, Rebound, Guarding Back: Present: Normal Inspection, Other (no edema, erythema, ecchymosis and no step offs). No: CVA Tenderness, Midline Tenderness, Paraspinal Tenderness Upper Extremity: Present: Normal Inspection, Normal ROM. No: Cyanosis, Edema Lower Extremity: Present: Normal Inspection, Normal ROM. No: Edema Neurological: Present: GCS=15 Skin: Present: Warm, Dry, Normal Color. No: Rashes Psychiatric: Present: Alert <Medina High T - Last Filed: 10/27/18 02:26> Medical Decision Making ED Course and Treatment: 10/26/18 06:18 patient is awake and alert, clinically sober, no s/s of acute alcohol withdrawal, clear speech and steady gait, stable for dc. - Lab Interpretations Lab Results: 10/25/18 20:55 10/25/18 20:55 Lab Results 10/25/18 20:55: WBC 6.4, RBC 4.55, Hgb 14.2, Hct 41.4 L, MCV 91.0, MCH 31.2, MCHC 34.3, RDW 13.3, Plt Count 178, MPV 11.1 H, Gran % 48.1 L, Lymph % (Auto) 41.4 H, [place] % (Auto) 7.2 H, Eos % (Auto) 3.1, Baso % (Auto) 0.2, Gran # 3.06, Lymph # (Auto) 2.6, [place] # (Auto) 0.5, Eos # (Auto) 0.2, Baso # (Auto) 0.01 10/25/18 20:55: Alcohol, Quantitative 336 H* 10/25/18 20:55: Sodium 139, Potassium 3.1 L, Chloride 104, Carbon Dioxide 22, Anion Gap 16, BUN 11, Creatinine 0.7 L, Est GFR ( Amer) > 60, Est GFR (Non-Af Amer) > 60, Random Glucose 152 H, Calcium 8.7, Total Bilirubin 0.6, AST 122 H D, ALT 119 H, Alkaline Phosphatase 96, Total Protein 8.4 H, Albumin 4.5, Globulin 3.9, Albumin/Globulin Ratio 1.2 10/25/18 20:55: PT 11.5, INR 1.01, APTT 30.5 - RAD Interpretation Radiology Orders: 10/25/18 20:41 HEAD W/O CONTRAST [CT] Stat 10/25/18 22:26 CERVICAL SPINE W/O CONTRAST [CT] Stat - Medication Orders Current Medication Orders: Discontinued Medications Potassium Chloride (Potassium Chloride Oral Soln) 40 meq PO STAT STA Stop: 10/26/18 03:03 <Yoseph Torrez - Last Filed: 10/26/18 06:18> ED Course and Treatment: 10/25/18 22:35 Impression: 38 year old male presents to the Emergency department s/p alcohol intoxication. Plan: -- CT of Cervical Spine -- CT of head -- EKG -- Labs -- Reassess and disposition Prior Visits: Notes and results from previous visits were reviewed. Progress Notes: 10/25/18 23:34 pt sleeping in er. no distress. cbc; wnl cmp; glucose; 150 ast/alt elevated but improved from previous labs. alcohol level;336 ekg; NSR at 90 b/m no ST elevations, normal axis. CT head;FINDINGS: BRAIN No acute intraparenchymal hemorrhage. No mass lesion. No CT evidence for acute territorial infarct. No midline shift or extra-axial collections. VENTRICLES: No hydrocephalus. ORBITS: The orbits are unremarkable. SINUSES AND MASTOIDS: The paranasal sinuses and mastoid air cells are clear. BONES: No fracture. SOFT TISSUES: Unremarkable. IMPRESSION: No acute intracranial abnormality. Electronically signed on Oct 25, 2018 11:22:53 PM EST by: Jose Juan Mccormick M.D., CAESAR Certified By ABR & CBCCT Fellowship Trained MRI and CT Specialist cervical spine CT: FINDINGS: ALIGNMENT: Bony alignment is anatomic. DEGENERATIVE CHANGES: No significant canal stenosis or neural foraminal narrowing evident. SOFT TISSUES: The prevertebral soft tissues are within normal limits. BONES: No acute fracture or aggressive appearing osseous lesion. IMPRESSION: No acute cervical spine abnormality. Electronically signed on Oct 25, 2018 11:24:04 PM EST by: Jose Juan Mccormick M.D., CAESAR Certified By ABR & CBCCT Fellowship Trained MRI and CT Specialist 10/26/18 03:02 pt sleeping in er; no distress. case signed out to dr. torrez pending sobriety, re-evaluation and disposition. 10/26/18 03:25 - Lab Interpretations Lab Results: 10/25/18 20:55 Lab Results 10/25/18 20:55: Sodium 139, Potassium 3.1 L, Chloride 104, Carbon Dioxide 22, Anion Gap 16, BUN 11, Creatinine 0.7 L, Est GFR ( Amer) > 60, Est GFR (Non-Af Amer) > 60, Random Glucose 152 H, Calcium 8.7, Total Bilirubin 0.6, AST 122 H D, ALT 119 H, Alkaline Phosphatase 96, Total Protein 8.4 H, Albumin 4.5, Globulin 3.9, Albumin/Globulin Ratio 1.2 - RAD Interpretation Radiology Orders: 10/25/18 20:41 HEAD W/O CONTRAST [CT] Stat <Medina High - Last Filed: 10/27/18 02:26> - Scribe Statement The provider has reviewed the documentation as recorded by the Scribe Deb Hurd. All medical record entries made by the Scribe were at my direction and personally dictated by me. I have reviewed the chart and agree that the record accurately reflects my personal performance of the history, physical exam, medical decision making, and the department course for this patient. I have also personally directed, reviewed, and agree with the discharge instructions and disposition. <Medina High - Last Filed: 10/27/18 02:26> Disposition/Present on Arrival - Present on Arrival Any Indicators Present on Arrival: No - Disposition Have Diagnosis and Disposition been Completed?: Yes Disposition Time: 06:18 Patient Plan: Discharge <Yoseph Torrez - Last Filed: 10/26/18 06:18> - Present on Arrival Any Indicators Present on Arrival: No History of DVT/PE: No History of Uncontrolled Diabetes: No Urinary Catheter: No History of Decub. Ulcer: No History Surgical Site Infection Following: None - Disposition Have Diagnosis and Disposition been Completed?: Yes Patient Plan: Discharge <Medina Hihg - Last Filed: 10/27/18 02:26> - Disposition Diagnosis: Alcohol abuse Disposition: HOME/ ROUTINE Condition: STABLE Discharge Instructions (ExitCare): Alcohol Use - When Is Drinking a Problem?, Alcohol Abuse and Alcoholism (DC), Effects of Alcohol on Your Health Print Language: OMANI Referrals: FAMILY PROVIDER,NO [Primary Care Provider] - Follow up with primary Forms: [employer] (Bots[place]an)
[2018-10-25 21:38] LABS: BASO # 0.01 K/mm3 (0.0-2.0); BASO % 0.2 % (0.0-3.0); EOS # 0.2 (0.0-0.7); EOS % 3.1 % (1.5-5.0); GRAN # 3.06 (1.4-6.5); GRAN % 48.1 % (50.0-68.0); HEMOGLOBIN 14.2 g/dL (14.0-18.0); LYMPH # 2.6 (1.2-3.4); LYMPH % 41.4 % (22.0-35.0); MEAN CORPUSCULAR HEMOGLOBIN 31.2 pg (25.0-35.0); MEAN CORPUSCULAR HGB CONC 34.3 g/dl (31.0-37.0); MEAN PLATELET VOLUME 11.1 fl (7.0-11.0); MONO # 0.5 (0.1-0.6); MONO % 7.2 % (1.0-6.0); RBC 4.55 10^6/uL (3.5-6.1); RED CELL DISTRIBUTION WIDTH 13.3 % (11.5-14.5); WHITE BLOOD COUNT 6.4 10^3/uL (4.5-11.0)
[2018-10-25 21:41] LABS: INR 1.01; PARTIAL THROMBOPLASTIN TIME 30.5 Seconds (25.1-36.5); PROTHROMBIN TIME 11.5 SECONDS (9.4-12.5)
[2018-10-26 00:37] VITALS: RESP 18
[2018-10-26] MEDS ORDERED: Potassium Chloride 40 mEq/30 ml LIQ UD PO STA (03:02)
[2018-10-26 06:39] VITALS: BP 140/82; PULSE 75; O2SAT 100
--- NOTE | 2018-10-26 09:17 | CT ---
Date of service: 10/25/2018 PROCEDURE: CT HEAD WITHOUT CONTRAST. HISTORY: etoh - found on ground COMPARISON: None available. TECHNIQUE: Axial computed tomography images were obtained through the head/brain without intravenous contrast. Radiation dose: Total exam DLP = 876.07 mGy-cm. This CT exam was performed using one or more of the following dose reduction techniques: Automated exposure control, adjustment of the mA and/or kV according to patient size, and/or use of iterative reconstruction technique. FINDINGS: HEMORRHAGE: No intracranial hemorrhage. BRAIN: No mass effect or edema. No atrophy or chronic microvascular ischemic changes. VENTRICLES: Unremarkable. No hydrocephalus. CALVARIUM: Unremarkable. PARANASAL SINUSES: Unremarkable as visualized. No significant inflammatory changes. MASTOID AIR CELLS: Unremarkable as visualized. No inflammatory changes. OTHER FINDINGS: None. IMPRESSION: Normal CT of the Head.
--- NOTE | 2018-10-26 09:35 | CT ---
Date of service: 10/25/2018 PROCEDURE: CT Cervical Spine without contrast HISTORY: etoh found on the ground COMPARISON: None available. TECHNIQUE: Axial computed tomography images were obtained of the cervical spine without the use of intravenous contrast. Coronal and sagittal reformatted images were created and reviewed. Radiation dose: Total exam DLP = 688.07 mGy-cm. This CT exam was performed using one or more of the following dose reduction techniques: Automated exposure control, adjustment of the mA and/or kV according to patient size, and/or use of iterative reconstruction technique. FINDINGS: VERTEBRAE: No fracture. Normal alignment. No destructive bony lesion. DISCS/SPINAL CANAL/NEURAL FORAMINA: Multilevel degenerative disc disease and spondylosis. PARASPINAL SOFT TISSUES: Unremarkable. OTHER FINDINGS: None. IMPRESSION: No acute fracture.
--- NOTE | 2018-10-27 00:06 | CARD ---
APPROVED REPORT Date of service: 10/25/2018 EKG Measurement Heart [id number] <Conclusion> Normal sinus rhythm Prolonged QT Abnormal ECG
== END 2018-10-26 06:38 | disposition home or self-care (01) ==
LOC: ED 20:34
DX: F10.10 Alcohol abuse, uncomplicated (principal); Y90.8 Blood alcohol level of 240 mg/100 ml or more

== ENCOUNTER 2018-11-19 18:07 | Emergency (ER) | payer OTHER ==
[2018-11-19 18:08] VITALS: BMI 25.0
[2018-11-19 18:27] VITALS: RESP 18; TEMP 98.4
--- NOTE | 2018-11-19 18:43 | ED PDOC ---
Arrival/HPI <Ruddy Marshall - Last Filed: 11/20/18 06:44> - General Historian: Patient - History of Present Illness Narrative History of Present Illness (Text): 11/19/18 18:35 38 y/o male with PMH of alcohol abuse presents [facility] for evaluation of public intoxication after being found passed out on the ground in front of the local 05/11. Pt admits to drinking today. + ETOH on breath. Pt is well known to this ED, with multiple visits in the past. Arousable to voice, states "he is okay". Denies physical complaints. HPI and ROS significantly limited secondary to intoxicated state. <Joie Robles - Last Filed: 11/20/18 15:24> - General Chief Complaint: Alcohol Ingestion Time Seen by Provider: 11/19/18 18:10 Past Medical History - Past History Past History: Non-Contributing - Infectious Disease Hx of Infectious Diseases: None - Cardiac Hx Cardiac Disorders: No - Pulmonary Hx Respiratory Disorders: No - Neurological Hx Neurological Disorder: No - HEENT Hx HEENT Disorder: No - Renal Hx Renal Disorder: No - Endocrine/Metabolic Hx Endocrine Disorders: No - Hematological/Oncological Hx Blood Disorders: No - Integumentary Hx Dermatological Disorder: No - Musculoskeletal/Rheumatological Hx Musculoskeletal Disorders: No - Gastrointestinal Hx Gastrointestinal Disorders: No - Genitourinary/Gynecological Hx Genitourinary Disorders: No - Psychiatric Hx Psychophysiologic Disorder: No Hx Substance Use: No - Past Surgical History Past Surgical History: Non-Contributing - Anesthesia Hx Anesthesia: No <Joie Robles - Last Filed: 11/20/18 15:24> Family/Social History Family/Social History: No Known Family HX Smoking Status: Unknown If Ever Smoked Hx Alcohol Use: Yes Hx Substance Use: No <Joie Robles - Last Filed: 11/20/18 15:24> Allergies/Home Meds <Ruddy Marshall - Last Filed: 11/20/18 06:44> <Joie Robles - Last Filed: 11/20/18 15:24> Allergies/Adverse Reactions: Allergies No Known Allergies Allergy (Verified 10/12/18 04:04) Home Medications: Home Meds Medication Instructions Recorded Confirmed No Known Home Med 01/19/18 10/25/18 Review of Systems - Review of Systems Systems not reviewed;Unavailable: Intoxicated <Joie Robles - Last Filed: 11/20/18 15:24> Physical Exam Vital Signs Temp Pulse Resp BP Pulse Ox 11/20/18 06:26 89 18 127/83 99 11/20/18 00:18 90 18 101/61 98 11/19/18 18:26 98.4 F 88 18 137/81 97 <Ruddy Marshall - Last Filed: 11/20/18 06:44> Vital Signs Reviewed: Yes Vital Signs Temp Pulse Resp BP Pulse Ox 11/19/18 18:26 98.4 F 88 18 137/81 97 Temperature: Afebrile Blood Pressure: Normal Pulse: Regular Respiratory Rate: Normal Appearance: Positive for: Well-Appearing, Non-Toxic, Comfortable Pain Distress: None Mental Status: Positive for: Alert and Oriented X 3 Finger Stick Blood Glucose: 300 - Systems Exam Head: Present: Atraumatic, Normocephalic Pupils: Present: PERRL Extroacular Muscles: Present: EOMI Conjunctiva: Present: Normal Mouth: Present: Moist Mucous Membranes Nose (External): Present: Atraumatic Nose (Internal): Present: Normal Inspection Neck: Present: Normal Range of Motion. No: Meningeal Signs, MIDLINE TENDERNESS, Paraspinal Tenderness Respiratory/Chest: Present: Clear to Auscultation, Good Air Exchange. No: Respiratory Distress, Accessory Muscle Use Cardiovascular: Present: Regular Rate and Rhythm, Normal S1, S2. No: Murmurs Abdomen: Present: Normal Bowel Sounds. No: Tenderness, Distention, Peritoneal Signs, Rebound, Guarding Back: Present: Normal Inspection. No: CVA Tenderness, Midline Tenderness, Paraspinal Tenderness Upper Extremity: Present: Normal Inspection, Normal ROM, NORMAL PULSES, Neurovascularly Intact, Capillary Refill < 2s. No: Cyanosis, Edema, Swelling, Temperature Abnormalties Lower Extremity: Present: Normal Inspection, NORMAL PULSES, Normal ROM, Neurovascularly Intact, Capillary Refill < 2 s. No: Edema, Tenderness, Swelling, Temperature Abnormalties Neurological: Present: Motor Func Grossly Intact Skin: Present: Warm, Dry, Normal Color. No: Rashes Lymphatic: No: Cervical Adenopathy Psychiatric: Present: Intoxicated <Joie Robles - Last Filed: 11/20/18 15:24> Medical Decision Making - Lab Interpretations Lab Results: Total Bilirubin 0.5 mg/dL (0.2-1.3) 11/19/18 18:50 AST 209 U/L (17-59) H D 11/19/18 18:50 ALT 290 U/L (7-56) H 11/19/18 18:50 Alkaline Phosphatase 119 U/L (38-126) 11/19/18 18:50 Total Protein 8.1 g/dL (5.8-8.3) 11/19/18 18:50 Albumin 4.4 g/dL (3.0-4.8) 11/19/18 18:50 Globulin 3.7 gm/dL 11/19/18 18:50 Albumin/Globulin Ratio 1.2 (1.1-1.8) 11/19/18 18:50 - RAD Interpretation Radiology Orders: 11/19/18 18:20 CERVICAL SPINE W/O CONTRAST [CT] Stat HEAD W/O CONTRAST [CT] Stat - Medication Orders Current Medication Orders: Discontinued Medications Sodium Chloride (Sodium Chloride 0.9%) 1,000 mls @ 999 mls/hr IV .Q1H1M STA Stop: 11/19/18 19:51 Last Admin: 11/19/18 18:57 Dose: 999 mls/hr eMAR Start Stop Document 11/19/18 18:57 EB (Rec: 11/19/18 18:57 EB [facility] [place]-[id number]) Intravenous Solution Start Date 11/19/18 Start Time 18:57 End Date 11/19/18 End time 20:00 Total Infusion Time 63 <Ruddy Marshall - Last Filed: 11/20/18 06:44> ED Course and Treatment: Initial Plan: * Fingerstick * CT Head * CT Cervical Spine * Cardiac Monitoring * Reassess and Disposition Fingerstick 305, will get labs and give fluids Revised Plan: * CBC, CMP * Alcohol level * Acetaminophen * Salicylate * UA * IVF Labwork shows elevated AST and ALT, as well as glucose 284. No evidence of DKA, bicarb normal. Alcohol 398 Acetaminophen and Salicylate negative 11/19/18 22:30 On re-evaluation, patient sleeping soundly in stretcher, respirations easy and unlabored. Easily arousable to voice, answering yes and no questions. Repeat fingerstick 202 CT cervical spine and CT head negative for any acute pathology. Will continue to monitor. 11/20/18 01:44 Patient much more alert. Oriented to self and place. Able to tell me his full name, age, . Pt is aware he is in the hospital. Not yet clinically sober. Denies physical complaints. Denies fever, cough, chest pain, SOB, abdominal pain, N/V/D, back pain, headache, dizziness. Denies drug use. Told that his sugar was elevated when he arrived, recommend he followup with PMD. Will continue to monitor. 0200 Patient endorsed to ED attending Dr. Marshall, who will take over patient care and disposition, pending urine and sobriety. - Lab Interpretations Lab Results: 11/19/18 18:50 11/19/18 18:50 Lab Results 11/19/18 22:16: POC Glucose (mg/dL) 202 H 11/19/18 18:50: Alcohol, Quantitative 398 H* 11/19/18 18:50: Salicylates < 1 L, Acetaminophen < 10.0 L 11/19/18 18:50: Sodium 140, Potassium 3.6, Chloride 104, Carbon Dioxide 24, Anion Gap 16, BUN 12, Creatinine 0.7 L, Est GFR ( Amer) > 60, Est GFR (Non-Af Amer) > 60, Random Glucose 284 H, Calcium 8.8, Total Bilirubin 0.5, AST 209 H D, ALT 290 H, Alkaline Phosphatase 119, Total Protein 8.1, Albumin 4.4, Globulin 3.7, Albumin/Globulin Ratio 1.2 11/19/18 18:50: WBC 7.3, RBC 4.58, Hgb 14.8, Hct 42.8, MCV 93.4, MCH 32.3, MCHC 34.6, RDW 13.6, Plt Count 235, MPV 11.1 H, Gran % 55.0, Lymph % (Auto) 32.1, [place] % (Auto) 7.9 H, Eos % (Auto) 4.2, Baso % (Auto) 0.8, Gran # 4.01, Lymph # (Auto) 2.4, [place] # (Auto) 0.6, Eos # (Auto) 0.3, Baso # (Auto) 0.06 11/19/18 18:23: POC Glucose (mg/dL) 305 H I have reviewed the lab results: Yes - RAD Interpretation Narrative RAD Interpretations (Text): 11/19/18 21:45 EXAM: CT Cervical Spine Without IV contrast. CLINICAL HISTORY: ETOH, FALL TECHNIQUE: Axial computed tomography images of the cervical spine without intravenous contrast. Sagittal and coronal reformatted images were generated. COMPARISON: Comparison is made to previous examination of the cervical spine dated 10/25/2018. FINDINGS: ALIGNMENT: Bony alignment is anatomic. DEGENERATIVE CHANGES: No significant canal stenosis or neural foraminal narrowing evident. SOFT TISSUES: The prevertebral soft tissues are within normal limits. BONES: No acute fracture or aggressive appearing osseous lesion. IMPRESSION: 1. No acute cervical spine abnormality. 2. No significant interval change. Electronically signed on Nov 19, 2018 8:48:53 PM EST by: Jose Juan Mccormick M.D., CAESAR Certified By ABR & CBCCT Fellowship Trained MRI and CT Specialist EXAM: CT Head without Intravenous Contrast. CLINICAL HISTORY: ETOH, FALL TECHNIQUE: Axial computed tomography images of the head/brain without intravenous contrast. 962.77 mGy-cm COMPARISON: None provided. FINDINGS: BRAIN No acute intraparenchymal hemorrhage. No mass lesion. No CT evidence for acute territorial infarct. No midline shift or extra-axial collections. Focal calcification is seen within the basal ganglia bilaterally; usually an i diopathic finding. VENTRICLES: No hydrocephalus. ORBITS: The orbits are unremarkable. SINUSES AND MASTOIDS: The paranasal sinuses and mastoid air cells are clear. BONES: No fracture. SOFT TISSUES: Unremarkable. IMPRESSION: No acute intracranial abnormality. Electronically signed on Nov 19, 2018 8:44:01 PM EST by: Jose Juan Mccormick M.D., CAESAR Certified By ABR & CBCCT Fellowship Trained MRI and CT Specialist Radiology Orders: 11/19/18 18:20 CERVICAL SPINE W/O CONTRAST [CT] Stat HEAD W/O CONTRAST [CT] Stat <Joie Robles - Last Filed: 11/20/18 15:24> - PA / MANAGER STAR / Resident Statement MD/DO has reviewed & agrees with the documentation as recorded. <Ruddy Marshall - Last Filed: 11/20/18 06:44> Disposition/Present on Arrival - Present on Arrival Any Indicators Present on Arrival: No - Disposition Have Diagnosis and Disposition been Completed?: Yes Disposition Time: 06:44 <Ruddy Marshall - Last Filed: 11/20/18 06:44> - Present on Arrival History of DVT/PE: No History of Uncontrolled Diabetes: No Urinary Catheter: No History of Decub. Ulcer: No History Surgical Site Infection Following: None <Joie Robles - Last Filed: 11/20/18 15:24> - Disposition Diagnosis: EtOH dependence, Hyperglycemia Disposition: HOME/ ROUTINE Condition: IMPROVED Discharge Instructions (ExitCare): Alcohol Abuse and Alcoholism (DC), Hyperglycemia, Adult (DC) Referrals: PCP,NO [Primary Care Provider] - Follow up with primary Forms: [employer] ([place]ux[place]ish)
[2018-11-19] MEDS ORDERED: Sodium Chloride 0.9% 1,000 ML IV STA (18:51)
[2018-11-19 18:54] LABS: BASO # 0.06 K/mm3 (0.0-2.0); BASO % 0.8 % (0.0-3.0); EOS # 0.3 (0.0-0.7); EOS % 4.2 % (1.5-5.0); GRAN # 4.01 (1.4-6.5); HEMOGLOBIN 14.8 g/dL (14.0-18.0); LYMPH # 2.4 (1.2-3.4); LYMPH % 32.1 % (22.0-35.0); MEAN CELL VOLUME 93.4 fl (80.0-105.0); MEAN CORPUSCULAR HEMOGLOBIN 32.3 pg (25.0-35.0); MEAN CORPUSCULAR HGB CONC 34.6 g/dl (31.0-37.0); MEAN PLATELET VOLUME 11.1 fl (7.0-11.0); MONO # 0.6 (0.1-0.6); MONO % 7.9 % (1.0-6.0); RBC 4.58 10^6/uL (3.5-6.1); RED CELL DISTRIBUTION WIDTH 13.6 % (11.5-14.5); WHITE BLOOD COUNT 7.3 10^3/uL (4.5-11.0)
[2018-11-19 19:04] LABS: ACETAMINOPHEN < 10.0 ug/ml (10.0-20.0); SALICYLATE < 1 mg/dL (2.0-20.0)
[2018-11-19 19:15] LABS: ALB/GLOB RATIO 1.2 (1.1-1.8); ALBUMIN 4.4 g/dL (3.0-4.8); ALT/SGPT 290 U/L (7-56); AST/SGOT 209 U/L (17-59); BLOOD UREA NITROGEN 12 mg/dL (7-21); CALCIUM 8.8 mg/dL (8.4-10.5); GFR NON-AFRICAN AMERICAN > 60
[2018-11-20 06:28] VITALS: BP 127/83; PULSE 89; O2SAT 99
--- NOTE | 2018-11-20 09:06 | CT ---
Date of service: 11/19/2018 PROCEDURE: CT HEAD WITHOUT CONTRAST. HISTORY: ETOH, fall COMPARISON: None available. TECHNIQUE: Axial computed tomography images were obtained through the head/brain without intravenous contrast. Radiation dose: Total exam DLP = 962.77 mGy-cm. This CT exam was performed using one or more of the following dose reduction techniques: Automated exposure control, adjustment of the mA and/or kV according to patient size, and/or use of iterative reconstruction technique. FINDINGS: HEMORRHAGE: No intracranial hemorrhage. BRAIN: No mass effect or edema. No atrophy or chronic microvascular ischemic changes. VENTRICLES: Unremarkable. No hydrocephalus. CALVARIUM: Unremarkable. PARANASAL SINUSES: Unremarkable as visualized. No significant inflammatory changes. MASTOID AIR CELLS: Unremarkable as visualized. No inflammatory changes. OTHER FINDINGS: None. IMPRESSION: Normal CT of the Head. No acute intracranial hemorrhage. The preliminary findings for this examination were reported by [facility] Radiology at 8:44 p.m. on 11/19/2018. There is concurrence of this report with the preliminary findings.
--- NOTE | 2018-11-20 09:16 | CT ---
Date of service: 11/19/2018 PROCEDURE: CT Cervical Spine without contrast HISTORY: ETOH, fall COMPARISON: None available. TECHNIQUE: Axial computed tomography images were obtained of the cervical spine without the use of intravenous contrast. Coronal and sagittal reformatted images were created and reviewed. Radiation dose: Total exam DLP = 690.65 mGy-cm. This CT exam was performed using one or more of the following dose reduction techniques: Automated exposure control, adjustment of the mA and/or kV according to patient size, and/or use of iterative reconstruction technique. FINDINGS: VERTEBRAE: The vertebral bodies are maintained in height. Normal alignment is maintained. There is straightening of the normal lordotic curvature of the cervical spine indicating possible muscular spasm. The atlantoaxial articulation and odontoid process are intact. DISCS/SPINAL CANAL/NEURAL FORAMINA: No significant central canal or neural foraminal stenosis. Discs heights are grossly preserved. PARASPINAL SOFT TISSUES: Unremarkable. OTHER FINDINGS: None. IMPRESSION: No fracture/dislocation. Possible muscular spasm. Otherwise unremarkable examination. The preliminary findings for this examination were reported by [facility] Radiology at 8:48 p.m. on 11/19/2018. There is concurrence of this report with the preliminary findings.
== END 2018-11-20 06:45 | disposition home or self-care (01) ==
LOC: ED 18:07
DX: F10.229 Alcohol dependence with intoxication, unspecified (principal); Y90.8 Blood alcohol level of 240 mg/100 ml or more; R73.9 Hyperglycemia, unspecified
CPT/HCPCS: 70450; 72125; 80053; 80320; 80329; 82948; 85025; 96360; 99283; J7030

== ENCOUNTER 2019-02-01 15:35 | Emergency (ER) | payer OTHER ==
[2019-02-01 15:36] VITALS: BMI 25.0
[2019-02-01 15:52] VITALS: RESP 18; TEMP 98.1
--- NOTE | 2019-02-01 15:56 | ED PDOC ---
Arrival/HPI - General Chief Complaint: Alcohol Ingestion Historian: Patient, EMS - History of Present Illness Narrative History of Present Illness (Text): 02/01/19 15:55 39 M with PMH of alcohol abuse presents [facility] for evaluation of public intoxication after being found passed out on the ground . Pt admits to drinking today. + ETOH on breath. Pt is well known to this ED, with multiple visits in the past. Arousable to voice, states "he is okay". Denies physical complaints Time/Duration: Prior to Arrival Symptom Onset: Sudden Symptom Course: Unchanged Activities at Onset: Light Context: Street Past Medical History - Provider Review Nursing Documentation Reviewed: Yes - Past History Past History: Non-Contributing - Infectious Disease Hx of Infectious Diseases: None - Cardiac Hx Cardiac Disorders: No - Pulmonary Hx Respiratory Disorders: No - Neurological Hx Neurological Disorder: No - HEENT Hx HEENT Disorder: No - Renal Hx Renal Disorder: No - Endocrine/Metabolic Hx Endocrine Disorders: No - Hematological/Oncological Hx Blood Disorders: No - Integumentary Hx Dermatological Disorder: No - Musculoskeletal/Rheumatological Hx Musculoskeletal Disorders: No - Gastrointestinal Hx Gastrointestinal Disorders: No - Genitourinary/Gynecological Hx Genitourinary Disorders: No - Psychiatric Hx Psychophysiologic Disorder: No Hx Substance Use: No - Past Surgical History Past Surgical History: Non-Contributing - Anesthesia Hx Anesthesia: No Family/Social History - Physician Review Nursing Documentation Reviewed: Yes Family/Social History: Unknown Family HX Smoking Status: Unknown If Ever Smoked Hx Alcohol Use: Yes Frequency of alcohol use: Daily Hx Substance Use: No Allergies/Home Meds Allergies/Adverse Reactions: Allergies No Known Allergies Allergy (Verified 02/01/19 15:43) Home Medications: Home Meds Medication Instructions Recorded Confirmed No Known Home Med 01/19/18 02/01/19 Review of Systems - Physician Review All systems were reviewed & negative as marked: Yes - Review of Systems Constitutional: Normal Eyes: Normal ENT: Normal Respiratory: Normal Cardiovascular: Normal Gastrointestinal: Normal Genitourinary Male: Normal Musculoskeletal: Normal Skin: Normal Neurological: Normal Endocrine: Normal Hemo/Lymphatic: Normal Psychiatric: Normal. absent: Suicidal Ideation Physical Exam Vital Signs Reviewed: Yes Vital Signs Temp Pulse Resp BP Pulse Ox 02/01/19 15:49 98.1 F 83 18 102/65 97 Temperature: Afebrile Blood Pressure: Normal Pulse: Regular Respiratory Rate: Normal Appearance: Positive for: Well-Appearing, Non-Toxic, Comfortable Pain Distress: Mild Mental Status: Positive for: Alert and Oriented X 3 Finger Stick Blood Glucose: 129 - Systems Exam Head: Present: Atraumatic, Normocephalic Pupils: Present: PERRL Extroacular Muscles: Present: EOMI Conjunctiva: Present: Normal Mouth: Present: Moist Mucous Membranes Neck: Present: Normal Range of Motion Respiratory/Chest: Present: Clear to Auscultation, Good Air Exchange. No: Respiratory Distress, Accessory Muscle Use Cardiovascular: Present: Regular Rate and Rhythm, Normal S1, S2. No: Murmurs Abdomen: No: Tenderness, Distention, Peritoneal Signs Back: Present: Normal Inspection Upper Extremity: Present: Normal Inspection. No: Cyanosis, Edema Lower Extremity: Present: Normal Inspection. No: Edema Neurological: Present: GCS=15, CN II-XII Intact, Speech Normal Skin: Present: Warm, Dry, Normal Color. No: Rashes Psychiatric: Present: Alert, Oriented x 3, Normal Insight, Normal Concentration, Intoxicated. No: Suicidal Ideation, Homicidal Ideation Medical Decision Making ED Course and Treatment: 02/01/19 15:56 Impression: 38 y/o male presents bib[facility] for evaluation of public intoxication Plan: -- Reassess and disposition Prior Visits: Notes and results from previous visits were reviewed. Progress Notes: 02/01/19 18:20 pt obseved 3 horus in er, awake alert ambulatory ambulatry askign for dc. - Scribe Statement The provider has reviewed the documentation as recorded by the Porsche Moise All medical record entries made by the Scribe were at my direction and personally dictated by me. I have reviewed the chart and agree that the record accurately reflects my personal performance of the history, physical exam, medical decision making, and the department course for this patient. I have also personally directed, reviewed, and agree with the discharge instructions and disposition. Disposition/Present on Arrival - Present on Arrival Any Indicators Present on Arrival: No History of DVT/PE: No History of Uncontrolled Diabetes: No Urinary Catheter: No History of Decub. Ulcer: No History Surgical Site Infection Following: None - Disposition Have Diagnosis and Disposition been Completed?: Yes Diagnosis: Alcohol abuse Disposition: HOME/ ROUTINE Disposition Time: 17:00 Condition: STABLE Discharge Instructions (ExitCare): Alcohol Use - When Is Drinking a Problem? Additional Instructions: return to er with worsening symptoms or concerns. Forms: [employer] (Bengali)
[2019-02-01 17:43] VITALS: BP 108/69; PULSE 78; O2SAT 99
== END 2019-02-01 18:18 | disposition home or self-care (01) ==
LOC: ED 15:35
DX: F10.10 Alcohol abuse, uncomplicated (principal)

== ENCOUNTER 2019-02-05 20:22 | Emergency (ER) | payer OTHER ==
[2019-02-05 20:23] VITALS: BMI 25.0
[2019-02-05 20:36] VITALS: TEMP 97.8
--- NOTE | 2019-02-05 21:17 | ED PDOC ---
Arrival/HPI - General Historian: Patient, EMS - History of Present Illness Narrative History of Present Illness (Text): 02/05/19 21:14 39yr old male with hx of ETOH abuse presents today brought in by ambulance after being found sleeping on the ground next to his friend. pt admits to drinking etoh today. denies trauma or injury. denies any complaints. pt just keeps asking how is friend is doing. <Medina High - Last Filed: 02/06/19 04:30> <Job Oliver - Last Filed: 02/06/19 05:39> - General Chief Complaint: Alcohol Ingestion Time Seen by Provider: 02/05/19 20:23 Past Medical History - Provider Review Nursing Documentation Reviewed: Yes - Travel History Have you recently traveled outside [place] w/in the past 3 mons?: No - Past History Past History: Non-Contributing - Infectious Disease Hx of Infectious Diseases: None - Cardiac Hx Cardiac Disorders: No - Pulmonary Hx Respiratory Disorders: No - Neurological Hx Neurological Disorder: No - HEENT Hx HEENT Disorder: No - Renal Hx Renal Disorder: No - Endocrine/Metabolic Hx Endocrine Disorders: No - Hematological/Oncological Hx Blood Disorders: No - Integumentary Hx Dermatological Disorder: No - Musculoskeletal/Rheumatological Hx Musculoskeletal Disorders: No - Gastrointestinal Hx Gastrointestinal Disorders: No - Genitourinary/Gynecological Hx Genitourinary Disorders: No - Psychiatric Hx Psychophysiologic Disorder: No Hx Substance Use: No - Past Surgical History Past Surgical History: Non-Contributing - Anesthesia Hx Anesthesia: No <Medina High - Last Filed: 02/06/19 04:30> Family/Social History - Physician Review Nursing Documentation Reviewed: Yes Family/Social History: Unknown Family HX Smoking Status: Unknown If Ever Smoked Hx Alcohol Use: Yes Hx Substance Use: No <Medina High - Last Filed: 02/06/19 04:30> Allergies/Home Meds <Medina High - Last Filed: 02/06/19 04:30> <Job Oliver - Last Filed: 02/06/19 05:39> Allergies/Adverse Reactions: Allergies No Known Allergies Allergy (Verified 02/01/19 15:43) Home Medications: Home Meds Medication Instructions Recorded Confirmed No Known Home Med 01/19/18 02/01/19 Review of Systems - Review of Systems Systems not reviewed;Unavailable: Intoxicated Respiratory: absent: Cough Cardiovascular: absent: Chest Pain Gastrointestinal: absent: Abdominal Pain Musculoskeletal: absent: Arthralgias Neurological: absent: Headache Psychiatric: absent: Depression <Medina High - Last Filed: 02/06/19 04:30> Physical Exam Vital Signs Reviewed: Yes Vital Signs Temp Pulse Resp BP Pulse Ox 02/05/19 20:36 97.8 F 92 H 18 113/70 97 Temperature: Afebrile Blood Pressure: Normal Pulse: Regular Respiratory Rate: Normal Appearance: Positive for: Well-Appearing, Non-Toxic, Comfortable Pain Distress: None Mental Status: Positive for: other (alert) Finger Stick Blood Glucose: 195 - Systems Exam Head: Present: Atraumatic Pupils: Present: PERRL Extroacular Muscles: Present: EOMI Mouth: Present: Moist Mucous Membranes Neck: Present: Normal Range of Motion Respiratory/Chest: Present: Clear to Auscultation Cardiovascular: Present: Regular Rate and Rhythm Abdomen: Present: Other (no ecchymosis). No: Tenderness, Distention, Rebound, Guarding Back: Present: Normal Inspection. No: Midline Tenderness, Paraspinal Tenderness Upper Extremity: Present: Normal Inspection, Normal ROM Lower Extremity: Present: Normal Inspection, Normal ROM Neurological: Present: Speech Normal Skin: Present: Warm, Dry, Normal Color Psychiatric: Present: Alert <Medina High - Last Filed: 02/06/19 04:30> Vital Signs Temp Pulse Resp BP Pulse Ox 02/05/19 23:40 102 H 20 116/78 100 02/05/19 20:36 97.8 F 92 H 18 113/70 97 <Job Oliver - Last Filed: 02/06/19 05:39> Medical Decision Making ED Course and Treatment: 02/05/19 21:17 39 yr old male presents today for ETOH intoxication. Per EMS pt found sleeping on the ground next to his friend. admits to drinking etoh today. pt denies any complaints. fingerstick: 132 will observe patient in ER for sobriety. pt reassessment; pt up, walked to bathroom and back. no distress. 02/06/19 03:54 pt reassessment; pt sleeping in ER. no distress. 02/06/19 04:30 case signed out to dr. oliver pending sobriety impression: alcohol intoxication <Medina High - Last Filed: 02/06/19 04:30> ED Course and Treatment: 02/06/19 05:37 Pt awake, alert, ambulating with steady gait. Deny any complaints, clinically sober. Pt stable for d/c. <Job Oliver - Last Filed: 02/06/19 05:39> - PA / AOC DIRECTOR COMBAT PLANS OFFICER / Resident Statement JUAN RAMON has reviewed & agrees with the documentation as recorded. JUAN RAMON has examined the patient and agrees with the treatment plan. <Job Oliver - Last Filed: 02/06/19 05:39> Disposition/Present on Arrival - Present on Arrival Any Indicators Present on Arrival: No History of DVT/PE: No History of Uncontrolled Diabetes: No Urinary Catheter: No History of Decub. Ulcer: No History Surgical Site Infection Following: None - Disposition Have Diagnosis and Disposition been Completed?: Yes Disposition Time: 03:55 <Medina High - Last Filed: 02/06/19 04:30> - Present on Arrival Any Indicators Present on Arrival: No - Disposition Have Diagnosis and Disposition been Completed?: Yes Disposition Time: 05:39 <Job Oliver - Last Filed: 02/06/19 05:39> - Disposition Diagnosis: Alcohol abuse Patient Problems: Current Active Problems Problem Status Onset Alcohol abuse Acute Condition: GOOD Referrals: PCP,NO [Primary Care Provider] - Follow up with primary Alcoholics Anonymous [Outside] - Follow up with primary Forms: [employer] (Citizen Of [place])
[2019-02-05 23:41] VITALS: O2SAT 100
[2019-02-06 04:40] VITALS: BP 100/62; PULSE 97; RESP 14
== END 2019-02-06 05:47 | disposition home or self-care (01) ==
LOC: ED 20:22
DX: F10.129 Alcohol abuse with intoxication, unspecified (principal)

== ENCOUNTER 2019-02-22 09:50 | Emergency (ER) | payer OTHER ==
[2019-02-22 09:53] VITALS: BMI 29.9
[2019-02-22 10:01] VITALS: RESP 18; TEMP 98.5
--- NOTE | 2019-02-22 10:04 | ED PDOC ---
Arrival/HPI - General Chief Complaint: Alcohol Ingestion Historian: Patient, EMS - History of Present Illness Narrative History of Present Illness (Text): 02/22/19 10:01 39 y/o male, nkda, frequent visitor to this ER for etoh intoxication, biba for etoh intoxication with etoh on breath. Pt. stated that he admits drinking, was drunk and walk into the bar for couple more beer, walk out, found on the street and public intoxication, no blood on the scene, no LOC, no nausea/vomiting/diarrhea, no rash, no other medical or psychological complaints. Past Medical History - Provider Review Nursing Documentation Reviewed: Yes - Past History Past History: Non-Contributing - Infectious Disease Hx of Infectious Diseases: None - Cardiac Hx Cardiac Disorders: No - Pulmonary Hx Respiratory Disorders: No - Neurological Hx Neurological Disorder: No - HEENT Hx HEENT Disorder: No - Renal Hx Renal Disorder: No - Endocrine/Metabolic Hx Endocrine Disorders: No - Hematological/Oncological Hx Blood Disorders: No - Integumentary Hx Dermatological Disorder: No - Musculoskeletal/Rheumatological Hx Musculoskeletal Disorders: No - Gastrointestinal Hx Gastrointestinal Disorders: No - Genitourinary/Gynecological Hx Genitourinary Disorders: No - Psychiatric Hx Psychophysiologic Disorder: No Hx Substance Use: No - Past Surgical History Past Surgical History: Non-Contributing - Anesthesia Hx Anesthesia: No Family/Social History - Physician Review Nursing Documentation Reviewed: Yes Family/Social History: Unknown Family HX Smoking Status: Unknown If Ever Smoked Hx Alcohol Use: Yes Hx Substance Use: No Allergies/Home Meds Allergies/Adverse Reactions: Allergies No Known Allergies Allergy (Verified 02/01/19 15:43) Home Medications: Home Meds Medication Instructions Recorded Confirmed RX: No Known Home Med 01/19/18 02/01/19 Review of Systems - Review of Systems Constitutional: absent: Fatigue, Fevers Eyes: absent: Vision Changes ENT: absent: Hearing Changes, Rhinorrhea Respiratory: absent: SOB Cardiovascular: absent: Chest Pain Gastrointestinal: absent: Abdominal Pain, Diarrhea, Nausea, Vomiting Musculoskeletal: absent: Arthralgias, Back Pain Skin: absent: Rash, Pruritis Neurological: absent: Headache, Dizziness Psychiatric: absent: Anxiety, Depression, Suicidal Ideation Physical Exam Finger Stick Blood Glucose: 172 - Systems Exam Head: Present: Atraumatic, Normocephalic, Other (no facial bony tenderness). No: Tenderness, Contusion, Swelling, Ecchymosis, Abrasion, Laceration Pupils: Present: PERRL Extroacular Muscles: Present: EOMI Conjunctiva: Present: Normal Ears: Present: NORMAL TM, Normal Canal. No: Erythema Mouth: Present: Moist Mucous Membranes Pharnyx: No: ERYTHEMA, EXUDATE, TONSILS ENLARGED, Peritonsilar Swelling, Uvular Deviation Nose (External): Present: Atraumatic. No: Abrasion, Contusion, Laceration, Lesions Nose (Internal): Present: Normal Inspection, No Active Bleeding. No: Rhinorrhea, Septal Deviation, Septal Hematoma, Epistaxis Neck: Present: Normal Range of Motion Respiratory/Chest: Present: Clear to Auscultation, Good Air Exchange. No: Respiratory Distress, Accessory Muscle Use, Wheezes, Retracting, Rhonchi, Tachypneic Cardiovascular: Present: Regular Rate and Rhythm, Normal S1, S2. No: Murmurs Abdomen: Present: Normal Bowel Sounds. No: Tenderness, Distention, Peritoneal Signs, Rebound, Guarding Back: Present: Normal Inspection. No: CVA Tenderness, Midline Tenderness, Paraspinal Tenderness, Pain with Leg Raise, Decubitus Ulcer Upper Extremity: Present: Normal Inspection, Normal ROM. No: Cyanosis, Edema, Deformity Lower Extremity: Present: Normal Inspection, Normal ROM. No: Edema, Deformity Neurological: Present: GCS=15, CN II-XII Intact, Speech Normal, Motor Func Grossly Intact, Normal Cerebellar Funct, Gait Normal, Memory Normal Skin: Present: Warm, Dry, Normal Color. No: Rashes Psychiatric: Present: Alert, Oriented x 3, Normal Insight, Normal Concentration Medical Decision Making ED Course and Treatment: 02/22/19 10:06 -FS 172 -CT head -Observe until sober 02/22/19 12:55 -CT head: No acute intracranial pathology identified. -Pt. is clinically sobered, walking around with normal gait and posture, request to be discharged home. -Discharge home with education avoid public intoxication, follow up with your own pmd within 2 days, return to the ER for any new or worsening signs or symptoms. - RAD Interpretation Radiology Orders: 02/22/19 10:01 HEAD W/O CONTRAST [CT] Stat Date of service: 02/22/2019 PROCEDURE: CT HEAD WITHOUT CONTRAST. HISTORY: etoh, found on the street, r/o ich COMPARISON: Noncontrast head CT performed 1/19/19 TECHNIQUE: Axial computed tomography images were obtained through the head/brain without intravenous contrast. Radiation dose: Total exam DLP = 923.01 mGy-cm. This CT exam was performed using one or more of the following dose reduction techniques: Automated exposure control, adjustment of the mA and/or kV according to patient size, and/or use of iterative reconstruction technique. FINDINGS: HEMORRHAGE: No intracranial hemorrhage. BRAIN: No mass effect or edema. The osuna-white matter differentiation appears intact. Please note that MRI with diffusion imaging is more sensitive in the detection of acute ischemic event. VENTRICLES: No hydrocephalus. CALVARIUM: Unremarkable. PARANASAL SINUSES: Unremarkable as visualized. No significant inflammatory changes. MASTOID AIR CELLS: Unremarkable as visualized. No inflammatory changes. OTHER FINDINGS: None. IMPRESSION: No acute intracranial pathology identified. Dynamics Ax Consultant: Radiologist - PA / DECISION SCIENCE ANALYST / Resident Statement MD/DO has reviewed & agrees with the documentation as recorded. Disposition/Present on Arrival - Present on Arrival Any Indicators Present on Arrival: No History of DVT/PE: No History of Uncontrolled Diabetes: No Urinary Catheter: No History of Decub. Ulcer: No History Surgical Site Infection Following: None - Disposition Have Diagnosis and Disposition been Completed?: Yes Diagnosis: Alcohol intoxication Disposition: HOME/ ROUTINE Disposition Time: 10:06 Patient Plan: Discharge Patient Problems: Current Active Problems Problem Status Onset Alcohol intoxication Acute Condition: IMPROVED Additional Instructions: -Discharge home with education avoid public intoxication, follow up with your own pmd within 2 days, return to the ER for any new or worsening signs or symptoms. Referrals: [facility] [place] [Outside] - Follow up with primary Forms: [email or web address] (Latvian), WORK NOTE
--- NOTE | 2019-02-22 12:14 | CT ---
Date of service: 02/22/2019 PROCEDURE: CT HEAD WITHOUT CONTRAST. HISTORY: etoh, found on the street, r/o ich COMPARISON: Noncontrast head CT performed 11/19/18 TECHNIQUE: Axial computed tomography images were obtained through the head/brain without intravenous contrast. Radiation dose: Total exam DLP = 923.01 mGy-cm. This CT exam was performed using one or more of the following dose reduction techniques: Automated exposure control, adjustment of the mA and/or kV according to patient size, and/or use of iterative reconstruction technique. FINDINGS: HEMORRHAGE: No intracranial hemorrhage. BRAIN: No mass effect or edema. The osuna-white matter differentiation appears intact. Please note that MRI with diffusion imaging is more sensitive in the detection of acute ischemic event. VENTRICLES: No hydrocephalus. CALVARIUM: Unremarkable. PARANASAL SINUSES: Unremarkable as visualized. No significant inflammatory changes. MASTOID AIR CELLS: Unremarkable as visualized. No inflammatory changes. OTHER FINDINGS: None. IMPRESSION: No acute intracranial pathology identified.
[2019-02-22 13:15] VITALS: BP 122/76; PULSE 85; O2SAT 98
== END 2019-02-22 13:14 | disposition home or self-care (01) ==
LOC: ED 09:50
DX: F10.129 Alcohol abuse with intoxication, unspecified (principal)

== ENCOUNTER 2019-02-26 13:21 | Emergency (ER) | payer OTHER ==
[2019-02-26 13:38] VITALS: RESP 18; O2SAT 100
[2019-02-26 13:45] VITALS: BMI 26.4
--- NOTE | 2019-02-26 13:48 | ED PDOC ---
Arrival/HPI - General Time Seen by Provider: 02/26/19 13:23 Historian: Patient - History of Present Illness Narrative History of Present Illness (Text): 02/26/19 13:46 A 39 year old male, whose past medical history includes EtOH abuse, who is a frequent visitor to this ER, presents to the emergency department for alcohol intoxication. Limited HPI and ROS due to patient's intoxication. Past Medical History - Provider Review Nursing Documentation Reviewed: Yes Primary Care Physician: NO PRIMARY CARE PROVIDER - Past History Past History: Non-Contributing - Infectious Disease Hx of Infectious Diseases: None - Cardiac Hx Cardiac Disorders: No - Pulmonary Hx Respiratory Disorders: No - Neurological Hx Neurological Disorder: No - HEENT Hx HEENT Disorder: No - Renal Hx Renal Disorder: No - Endocrine/Metabolic Hx Endocrine Disorders: No - Hematological/Oncological Hx Blood Disorders: No - Integumentary Hx Dermatological Disorder: No - Musculoskeletal/Rheumatological Hx Musculoskeletal Disorders: No - Gastrointestinal Hx Gastrointestinal Disorders: No - Genitourinary/Gynecological Hx Genitourinary Disorders: No - Psychiatric Hx Psychophysiologic Disorder: No Hx Substance Use: No - Past Surgical History Past Surgical History: Non-Contributing - Anesthesia Hx Anesthesia: No Family/Social History - Physician Review Nursing Documentation Reviewed: Yes Family/Social History: No Known Family HX Smoking Status: Unknown If Ever Smoked Hx Alcohol Use: Yes Hx Substance Use: No Allergies/Home Meds Allergies/Adverse Reactions: Allergies No Known Allergies Allergy (Verified 02/01/19 15:43) Home Medications: Home Meds Medication Instructions Recorded Confirmed No Known Home Med 01/19/18 02/26/19 Review of Systems - Review of Systems Systems not reviewed;Unavailable: Intoxicated Physical Exam Vital Signs Reviewed: Yes Vital Signs Temp Pulse Resp BP Pulse Ox 02/26/19 13:37 98.0 F 85 18 136/70 100 Temperature: Afebrile Blood Pressure: Normal Pulse: Regular Respiratory Rate: Normal Appearance: Positive for: Unkept, Other (alocohol on breath, intoxicated) Pain Distress: None Mental Status: Positive for: Alert and Oriented X 3 - Systems Exam Head: Present: Atraumatic, Normocephalic Pupils: Present: PERRL Extroacular Muscles: Present: EOMI Conjunctiva: Present: Normal Mouth: Present: Moist Mucous Membranes Neck: Present: Normal Range of Motion Respiratory/Chest: Present: Clear to Auscultation, Good Air Exchange. No: Respiratory Distress, Accessory Muscle Use Cardiovascular: Present: Regular Rate and Rhythm, Normal S1, S2. No: Murmurs Abdomen: No: Tenderness, Distention, Peritoneal Signs Back: Present: Normal Inspection Upper Extremity: Present: Normal Inspection. No: Cyanosis, Edema Lower Extremity: Present: Normal Inspection. No: Edema Neurological: Present: GCS=15, CN II-XII Intact Skin: Present: Warm, Dry, Normal Color. No: Rashes Psychiatric: Present: Alert, Oriented x 3, Intoxicated Medical Decision Making ED Course and Treatment: 02/26/19 13:48 Impression: 39 year old male with intoxication. Plan: -- Fingerstick -- Reassess and disposition Prior Visits: Notes and results from previous visits were reviewed. Patient was last seen in the emergency department on 02/22/2019 for EtOH intoxication. Patient was discharged home after patient became clinically sober and was able to ambulate with normal gait and posture. Progress Notes: 02/26/19 17:59 pt reasseesed in er awaek alert ambulatory steady gait stable for dc. - Scribe Statement The provider has reviewed the documentation as recorded by the Porsche Huertas Provider Scribe Attestation: All medical record entries made by the Porsche were at my direction and personally dictated by me. I have reviewed the chart and agree that the record accurately reflects my personal performance of the history, physical exam, medical decision making, and the department course for this patient. I have also personally directed, reviewed, and agree with the discharge instructions and disposition. Disposition/Present on Arrival - Present on Arrival Any Indicators Present on Arrival: No History of DVT/PE: No History of Uncontrolled Diabetes: No Urinary Catheter: No History Surgical Site Infection Following: None - Disposition Have Diagnosis and Disposition been Completed?: Yes Diagnosis: Alcohol abuse Disposition: HOME/ ROUTINE Disposition Time: 17:00 Patient Problems: Current Active Problems Problem Status Onset Alcohol abuse Acute Condition: STABLE Discharge Instructions (ExitCare): Alcohol Use - When Is Drinking a Problem? Print Language: RUSSIAN Referrals: PCP,NO [Primary Care Provider] - Follow up with primary
[2019-02-26 18:05] VITALS: BP 132/61; PULSE 69; TEMP 98.2
== END 2019-02-26 18:27 | disposition home or self-care (01) ==
LOC: ED 13:21
DX: F10.10 Alcohol abuse, uncomplicated (principal)

== ENCOUNTER 2019-02-27 20:37 | Emergency (ER) | payer SELFPAY ==
[2019-02-27 20:37] VITALS: BMI 26.4
[2019-02-27 20:46] VITALS: TEMP 97.8
--- NOTE | 2019-02-27 23:20 | ED PDOC ---
Arrival/HPI - General Historian: Patient - History of Present Illness Narrative History of Present Illness (Text): 02/27/19 23:18 39 year old male, whose past medical history includes EtOH abuse, who is a frequent visitor to this ER, presents to the emergency department for alcohol intoxication. Patient admits to drinking tonight. Patient denies any trauma, injury, pain, or vomiting. Limited HPI and ROS due to patient's intoxication. Time/Duration: Prior to Arrival Activities at Onset: Light Context: Street <Tigist Shine PA-C - Last Filed: 02/28/19 02:05> <Darrion Carter - Last Filed: 02/28/19 05:15> - General Chief Complaint: Alcohol Ingestion Time Seen by Provider: 02/27/19 20:47 Past Medical History - Provider Review Nursing Documentation Reviewed: Yes - Past History Past History: Non-Contributing - Infectious Disease Hx of Infectious Diseases: None - Cardiac Hx Cardiac Disorders: No - Pulmonary Hx Respiratory Disorders: No - Neurological Hx Neurological Disorder: No - HEENT Hx HEENT Disorder: No - Renal Hx Renal Disorder: No - Endocrine/Metabolic Hx Endocrine Disorders: No - Hematological/Oncological Hx Blood Disorders: No - Integumentary Hx Dermatological Disorder: No - Musculoskeletal/Rheumatological Hx Musculoskeletal Disorders: No - Gastrointestinal Hx Gastrointestinal Disorders: No - Genitourinary/Gynecological Hx Genitourinary Disorders: No - Psychiatric Hx Psychophysiologic Disorder: No Hx Substance Use: No - Past Surgical History Past Surgical History: Non-Contributing - Anesthesia Hx Anesthesia: No <Tigist Shine PA-C - Last Filed: 02/28/19 02:05> Family/Social History - Physician Review Nursing Documentation Reviewed: Yes Family/Social History: No Known Family HX Smoking Status: Unknown If Ever Smoked Hx Alcohol Use: Yes Hx Substance Use: No <Tigist Shine PA-C - Last Filed: 02/28/19 02:05> Allergies/Home Meds <Tigist Shine PA-C - Last Filed: 02/28/19 02:05> <Darrion Carter - Last Filed: 02/28/19 05:15> Allergies/Adverse Reactions: Allergies No Known Allergies Allergy (Verified 02/01/19 15:43) Home Medications: Home Meds Medication Instructions Recorded Confirmed No Known Home Med 03/21/18 04/29/19 Review of Systems - Physician Review All systems were reviewed & negative as marked: Yes - Review of Systems Systems not reviewed;Unavailable: Intoxicated <Tigist Shine PA-C - Last Filed: 02/28/19 02:05> Physical Exam Vital Signs Reviewed: Yes Vital Signs Temp Pulse Resp BP Pulse Ox 02/27/19 20:45 97.8 F 84 18 136/78 94 L Temperature: Afebrile Blood Pressure: Normal Pulse: Regular Respiratory Rate: Normal Appearance: Positive for: Well-Appearing, Non-Toxic, Comfortable Pain Distress: None Mental Status: Positive for: Alert and Oriented X 3 - Systems Exam Head: Present: Atraumatic, Normocephalic Pupils: Present: PERRL Extroacular Muscles: Present: EOMI Conjunctiva: Present: Normal Mouth: Present: Moist Mucous Membranes Neck: Present: Normal Range of Motion Respiratory/Chest: Present: Clear to Auscultation, Good Air Exchange. No: Respiratory Distress, Accessory Muscle Use Cardiovascular: Present: Regular Rate and Rhythm, Normal S1, S2. No: Murmurs Abdomen: No: Tenderness, Distention, Peritoneal Signs Back: Present: Normal Inspection Upper Extremity: Present: Normal Inspection. No: Cyanosis, Edema Lower Extremity: Present: Normal Inspection. No: Edema Neurological: Present: GCS=15, CN II-XII Intact, Speech Normal Skin: Present: Warm, Dry, Normal Color. No: Rashes Psychiatric: Present: Alert, Oriented x 3, Normal Insight, Normal Concentration, Intoxicated <Tigist Shine PA-C - Last Filed: 02/28/19 02:05> Vital Signs Temp Pulse Resp BP Pulse Ox 02/28/19 03:00 96 H 16 145/77 98 02/28/19 00:50 82 18 132/71 95 02/27/19 20:45 97.8 F 84 18 136/78 94 L <Darrion Carter - Last Filed: 02/28/19 05:15> Medical Decision Making ED Course and Treatment: 02/28/19 02:05 Patient is sleeping comfortably in bed, breathing easy and unlabored, will continue to observe in the ER until the patient is clinically sober. <Tigist Shine PA-C - Last Filed: 02/28/19 02:05> ED Course and Treatment: 02/28/19 05:12 pt clinically sober, denies any somatic complaints or any depression / HI / SI or hallucinations. No signs of etoh withdrawal. I endorsed to pt to decrease etoh ingestion. He is agreeable. Clear for d/c home with return indications and f/u. <Darrion Carter - Last Filed: 02/28/19 05:15> - PA / RETORT FIREMAN / Resident Statement MD/DO has reviewed & agrees with the documentation as recorded. - Scribe Statement The provider has reviewed the documentation as recorded by the Radhaibromie Grady Provider Scribe Attestation: All medical record entries made by the Scribe were at my direction and personally dictated by me. I have reviewed the chart and agree that the record accurately reflects my personal performance of the history, physical exam, medical decision making, and the department course for this patient. I have also personally directed, reviewed, and agree with the discharge instructions and disposition. <Tigist Shine PA-C - Last Filed: 02/28/19 02:05> Disposition/Present on Arrival - Present on Arrival Any Indicators Present on Arrival: No History of DVT/PE: No History of Uncontrolled Diabetes: No Urinary Catheter: No History of Decub. Ulcer: No History Surgical Site Infection Following: None - Disposition Have Diagnosis and Disposition been Completed?: Yes <Tigist Shine PA-C - Last Filed: 02/28/19 02:05> - Disposition Disposition Time: 05:14 <Darrion Carter - Last Filed: 02/28/19 05:15> - Disposition Diagnosis: Alcohol intoxication Disposition: HOME/ ROUTINE Condition: STABLE Discharge Instructions (ExitCare): Alcohol Use - When Is Drinking a Problem?, Effects of Alcohol on Your Health Print Language: GUYANESE Additional Instructions: ROM HOLLOWAY, thank you for letting us take care of you today. Your provider was Darrion Carter and you were treated for ETOH. The emergency medical care you received today was directed at your acute symptoms. If you were prescribed any medication, please fill it and take as directed. It may take several days for your symptoms to resolve. Return to the Emergency Department if your symptoms worsen, do not improve, or if you have any other problems. Please contact your doctor or call one of the physicians/clinics you have been referred to that are listed on the Patient Visit Information form that is included in your discharge packet. Bring any paperwork you were given at discharge with you along with any medications you are taking to your follow up visit. Our treatment cannot replace ongoing medical care by a primary care provider outside of the emergency department. Thank you for allowing the [facility] team to be part of your care today. If you had an X-Ray or CT scan: A Radiologist will review the ED reading if any change in treatment is needed we will contact you. If you had a blood, urine, or wound culture: It will take several days for the results, if any change in treatment is needed we will contact you. If you had an STI test: It will take 48 hours for the results. Please call after 1 week if you have not heard back. Referrals: [facility] [Outside] - Follow up with primary [facility] [Outside] - Follow up with primary [facility] [Outside] - Follow up with primary [facility] [Outside] - Follow up with primary Marya Deleon MD [Medical Doctor] - Follow up with primary Forms: [facility] (Azeri)
[2019-02-28 03:00] VITALS: BP 145/77; PULSE 96; RESP 16; O2SAT 98
== END 2019-02-28 05:27 | disposition home or self-care (01) ==
LOC: ED 20:37
DX: F10.129 Alcohol abuse with intoxication, unspecified (principal)

== ENCOUNTER 2019-03-01 19:43 | Emergency (ER) | payer SELFPAY ==
[2019-03-01 19:43] VITALS: BMI 26.4
[2019-03-01 19:56] VITALS: TEMP 97.9
--- NOTE | 2019-03-01 21:26 | ED PDOC ---
Arrival/HPI - General Chief Complaint: Alcohol Ingestion Time Seen by Provider: 03/01/19 19:45 Historian: Patient - History of Present Illness Narrative History of Present Illness (Text): 03/01/19 20:05 [place] Encarnacion is a 39 year old male, whose past medical history includes alcohol abuse, who presents to the Emergency department brought in by EMS for public intoxication tonight. Patient was found outside inebriated tonight and admits to drinking alcohol today. Patient denies any fever, chills, chest pain, shortness of breath, nausea, vomiting, diarrhea, urinary symptoms, back pain, neck pain, headache, dizziness, or any other complaints. Time/Duration: Other (tonight) Symptom Onset: Gradual Symptom Course: Unchanged Activities at Onset: Light Context: Street Past Medical History - Provider Review Nursing Documentation Reviewed: Yes - Past History Past History: Non-Contributing - Infectious Disease Hx of Infectious Diseases: None - Cardiac Hx Cardiac Disorders: No - Pulmonary Hx Respiratory Disorders: No - Neurological Hx Neurological Disorder: No - HEENT Hx HEENT Disorder: No - Renal Hx Renal Disorder: No - Endocrine/Metabolic Hx Endocrine Disorders: No - Hematological/Oncological Hx Blood Disorders: No - Integumentary Hx Dermatological Disorder: No - Musculoskeletal/Rheumatological Hx Musculoskeletal Disorders: No - Gastrointestinal Hx Gastrointestinal Disorders: No - Genitourinary/Gynecological Hx Genitourinary Disorders: No - Psychiatric Hx Psychophysiologic Disorder: No Hx Substance Use: No - Past Surgical History Past Surgical History: Non-Contributing - Anesthesia Hx Anesthesia: No Family/Social History - Physician Review Nursing Documentation Reviewed: Yes Family/Social History: Unknown Family HX Smoking Status: Unknown If Ever Smoked Hx Alcohol Use: Yes Hx Substance Use: No Allergies/Home Meds Allergies/Adverse Reactions: Allergies No Known Allergies Allergy (Verified 03/01/19 19:48) Home Medications: Home Meds Medication Instructions Recorded Confirmed No Known Home Med 01/19/18 03/01/19 Review of Systems - Physician Review All systems were reviewed & negative as marked: Yes - Review of Systems Constitutional: Normal. absent: Fevers Eyes: Normal ENT: Normal Respiratory: Normal. absent: SOB, Cough Cardiovascular: Normal. absent: Chest Pain Gastrointestinal: Normal. absent: Abdominal Pain, Diarrhea, Nausea, Vomiting Genitourinary Male: Normal. absent: Dysuria, Frequency, Hematuria, Urinary Output Changes Musculoskeletal: Normal. absent: Back Pain, Neck Pain Skin: Normal. absent: Rash Neurological: Normal. absent: Headache, Dizziness Endocrine: Normal Hemo/Lymphatic: Normal Psychiatric: Normal Physical Exam Vital Signs Reviewed: Yes Vital Signs Temp Pulse Resp BP Pulse Ox 03/01/19 19:55 97.9 F 89 16 135/73 97 Temperature: Afebrile Blood Pressure: Normal Pulse: Regular Respiratory Rate: Normal Appearance: Positive for: Well-Appearing, Non-Toxic, Comfortable, Unkept, Other (Alcohol on breath) Pain Distress: None Mental Status: Positive for: Alert and Oriented X 3 Finger Stick Blood Glucose: 129 - Systems Exam Head: Present: Atraumatic, Normocephalic Pupils: Present: PERRL Extroacular Muscles: Present: EOMI Conjunctiva: Present: Normal Mouth: Present: Moist Mucous Membranes Neck: Present: Normal Range of Motion Respiratory/Chest: Present: Clear to Auscultation, Good Air Exchange. No: Respiratory Distress, Accessory Muscle Use Cardiovascular: Present: Regular Rate and Rhythm, Normal S1, S2. No: Murmurs Abdomen: No: Tenderness, Distention, Peritoneal Signs Back: Present: Normal Inspection Upper Extremity: Present: Normal Inspection. No: Cyanosis, Edema Lower Extremity: Present: Normal Inspection. No: Edema Neurological: Present: GCS=15, CN II-XII Intact, Speech Normal Skin: Present: Warm, Dry, Normal Color. No: Rashes Psychiatric: Present: Alert, Oriented x 3, Normal Insight, Normal Concentration Medical Decision Making ED Course and Treatment: 03/01/19 20:05 Impression: 39 year old male brought in for alcohol intoxication. Plan: -- Reassess and disposition Prior Visits: Notes and results from previous visits were reviewed. Progress Notes: 03/02/19 05:40 On re-evaluation, pt is awake, alert, ambulating with steady. In no acute distress, clinically sober. Pt stable for discharge. - Scribe Statement The provider has reviewed the documentation as recorded by the Porsche Crews Provider Scribe Attestation: All medical record entries made by the Scribe were at my direction and personally dictated by me. I have reviewed the chart and agree that the record accurately reflects my personal performance of the history, physical exam, medical decision making, and the department course for this patient. I have also personally directed, reviewed, and agree with the discharge instructions and disposition. Disposition/Present on Arrival - Present on Arrival Any Indicators Present on Arrival: No History of DVT/PE: No History of Uncontrolled Diabetes: No Urinary Catheter: No History of Decub. Ulcer: No History Surgical Site Infection Following: None - Disposition Have Diagnosis and Disposition been Completed?: Yes Diagnosis: Alcohol abuse Disposition: HOME/ ROUTINE Disposition Time: 05:38 Patient Plan: Discharge Patient Problems: Current Active Problems Problem Status Onset Alcohol abuse Acute Condition: STABLE Referrals: PCP,NO [Primary Care Provider] - Follow up with primary [facility] [Outside] - Follow up with primary Forms: [facility] (Barbadian)
[2019-03-02 05:10] VITALS: RESP 18; O2SAT 100
[2019-03-02 06:18] VITALS: BP 127/85; PULSE 70
== END 2019-03-02 05:55 | disposition home or self-care (01) ==
LOC: ED 19:43
DX: F10.10 Alcohol abuse, uncomplicated (principal)

== ENCOUNTER 2019-03-02 21:01 | Emergency (ER) | payer SELFPAY ==
[2019-03-02 21:02] VITALS: BMI 26.4
[2019-03-02 21:17] VITALS: TEMP 97.9
--- NOTE | 2019-03-02 21:29 | ED PDOC ---
Arrival/HPI - General Chief Complaint: Alcohol Ingestion Time Seen by Provider: 03/02/19 21:06 Historian: EMS - History of Present Illness Narrative History of Present Illness (Text): 03/02/19 21:28 A 39 year old male, whose past medical history includes EtOH abuse, was brought in by EMS, presents to the emergency department for public intoxication this evening. Patient is a frequent visitor to the ER due to intoxication. Limited HPI and ROS due to patient's intoxicated state. Past Medical History - Provider Review Nursing Documentation Reviewed: Yes - Past History Past History: Non-Contributing - Infectious Disease Hx of Infectious Diseases: None - Cardiac Hx Cardiac Disorders: No - Pulmonary Hx Respiratory Disorders: No - Neurological Hx Neurological Disorder: No - HEENT Hx HEENT Disorder: No - Renal Hx Renal Disorder: No - Endocrine/Metabolic Hx Endocrine Disorders: No - Hematological/Oncological Hx Blood Disorders: No - Integumentary Hx Dermatological Disorder: No - Musculoskeletal/Rheumatological Hx Musculoskeletal Disorders: No - Gastrointestinal Hx Gastrointestinal Disorders: No - Genitourinary/Gynecological Hx Genitourinary Disorders: No - Psychiatric Hx Psychophysiologic Disorder: No Hx Substance Use: No - Past Surgical History Past Surgical History: Non-Contributing - Anesthesia Hx Anesthesia: No Family/Social History - Physician Review Nursing Documentation Reviewed: Yes Family/Social History: No Known Family HX Smoking Status: Unknown If Ever Smoked Hx Alcohol Use: Yes Hx Substance Use: No Allergies/Home Meds Allergies/Adverse Reactions: Allergies No Known Allergies Allergy (Verified 03/01/19 19:48) Home Medications: Home Meds Medication Instructions Recorded Confirmed No Known Home Med 01/19/18 03/01/19 Review of Systems - Review of Systems Systems not reviewed;Unavailable: Intoxicated Physical Exam Vital Signs Temp Pulse Resp BP Pulse Ox 03/02/19 21:17 97.9 F 91 H 18 157/109 H 99 Temperature: Afebrile Blood Pressure: Normal Pulse: Regular Respiratory Rate: Normal Appearance: Positive for: Other (intoxicated, alcohol on breath) Pain Distress: None Finger Stick Blood Glucose: 117 - Systems Exam Head: Present: Atraumatic, Normocephalic Pupils: Present: PERRL Extroacular Muscles: Present: EOMI Conjunctiva: Present: Normal Mouth: Present: Moist Mucous Membranes Neck: Present: Normal Range of Motion Respiratory/Chest: Present: Clear to Auscultation, Good Air Exchange. No: Respiratory Distress, Accessory Muscle Use Cardiovascular: Present: Regular Rate and Rhythm, Normal S1, S2. No: Murmurs Abdomen: No: Tenderness, Distention, Peritoneal Signs Back: Present: Normal Inspection Upper Extremity: Present: Normal Inspection. No: Cyanosis, Edema Lower Extremity: Present: Normal Inspection. No: Edema Neurological: Present: GCS=15, CN II-XII Intact, Speech Normal Skin: Present: Warm, Dry, Normal Color. No: Rashes Psychiatric: Present: Alert, Oriented x 3, Intoxicated Medical Decision Making ED Course and Treatment: 03/02/19 21:29 Impression: 39 year old male brought in by EMS for public intoxication. Plan: -- Awaiting sobriety -- Reassess and disposition Progress Notes: Will observe the patient in the ER until he is clinically sober, he is smiling and watching TV at this time. 03/03/19 01:10 Patient is sleeping comfortably in no acute distress. Will continue to observe until patient is sober and safe for d/c. - PA / PROSPECTING OBSERVER / Resident Statement MD/ has reviewed & agrees with the documentation as recorded. - Scribe Statement The provider has reviewed the documentation as recorded by the Porsche Huertas Provider Scribe Attestation: All medical record entries made by the Porsche were at my direction and personally dictated by me. I have reviewed the chart and agree that the record accurately reflects my personal performance of the history, physical exam, medical decision making, and the department course for this patient. I have also personally directed, reviewed, and agree with the discharge instructions and disposition. Disposition/Present on Arrival - Present on Arrival Any Indicators Present on Arrival: No History of DVT/PE: No History of Uncontrolled Diabetes: No Urinary Catheter: No History of Decub. Ulcer: No History Surgical Site Infection Following: None - Disposition Have Diagnosis and Disposition been Completed?: Yes Diagnosis: Alcohol intoxication Disposition: HOME/ ROUTINE Disposition Time: 05:45 (Pt was AAOx3, speaking in full sentences, no tremors, able to ambulate with a steady gait. ) Patient Plan: Discharge Condition: STABLE Discharge Instructions (ExitCare): Alcohol Use - When Is Drinking a Problem? Print Language: OMANI Forms: [facility] (Sudanese)
[2019-03-03 05:28] VITALS: BP 141/91; PULSE 87; RESP 15; O2SAT 97
== END 2019-03-03 05:50 | disposition home or self-care (01) ==
LOC: ED 21:01
DX: F10.129 Alcohol abuse with intoxication, unspecified (principal)

== ENCOUNTER 2019-03-03 19:46 | Emergency (ER) | payer OTHER ==
[2019-03-03 19:51] VITALS: BMI 25.8
[2019-03-03 20:01] VITALS: TEMP 98.3
--- NOTE | 2019-03-03 20:20 | ED PDOC ---
Arrival/HPI - General Chief Complaint: Alcohol Ingestion Time Seen by Provider: 03/03/19 19:51 Historian: Patient - History of Present Illness Narrative History of Present Illness (Text): 03/03/19 20:17 39 year old male, whose past medical history includes alcohol abuse, brought in by EMS, presents to the emergency department for public intoxication. Patient is not complaining of any medical or psychiatric complaints. Patient is intoxicated. Patient is a frequent visitor to the ER due to intoxication. Limited HPI and ROS due to patient's intoxicated state. Time/Duration: Prior to Arrival Symptom Onset: Gradual Symptom Course: Unchanged Activities at Onset: Light Context: Street Past Medical History - Provider Review Nursing Documentation Reviewed: Yes - Past History Past History: Non-Contributing - Infectious Disease Hx of Infectious Diseases: None - Cardiac Hx Cardiac Disorders: No - Pulmonary Hx Respiratory Disorders: No - Neurological Hx Neurological Disorder: No - HEENT Hx HEENT Disorder: No - Renal Hx Renal Disorder: No - Endocrine/Metabolic Hx Endocrine Disorders: No - Hematological/Oncological Hx Blood Disorders: No - Integumentary Hx Dermatological Disorder: No - Musculoskeletal/Rheumatological Hx Musculoskeletal Disorders: No - Gastrointestinal Hx Gastrointestinal Disorders: No - Genitourinary/Gynecological Hx Genitourinary Disorders: No - Psychiatric Hx Psychophysiologic Disorder: No Hx Substance Use: No - Past Surgical History Past Surgical History: Non-Contributing - Anesthesia Hx Anesthesia: No Hx Anesthesia Reactions: No Hx Malignant Hyperthermia: No Family/Social History - Physician Review Nursing Documentation Reviewed: Yes Family/Social History: No Known Family HX Smoking Status: Unknown If Ever Smoked Hx Alcohol Use: Yes Hx Substance Use: No Allergies/Home Meds Allergies/Adverse Reactions: Allergies No Known Allergies Allergy (Verified 03/01/19 19:48) Home Medications: Home Meds Medication Instructions Recorded Confirmed No Known Home Med 01/19/18 03/03/19 Review of Systems - Physician Review All systems were reviewed & negative as marked: Yes - Review of Systems Systems not reviewed;Unavailable: Intoxicated Physical Exam - Physical Exam Physical Exam Limitations: Intoxication Vital Signs Reviewed: Yes Vital Signs Temp Pulse Resp BP Pulse Ox 03/03/19 20:01 98.3 F 85 18 129/79 97 Temperature: Afebrile Blood Pressure: Normal Pulse: Regular Respiratory Rate: Normal Appearance: Positive for: Well-Appearing, Non-Toxic, Comfortable Pain Distress: None Mental Status: Positive for: Alert and Oriented X 3 Finger Stick Blood Glucose: 117 - Systems Exam Psychiatric: Present: Intoxicated - Scribe Statement The provider has reviewed the documentation as recorded by the Scribe Ernesto Grady Provider Scribe Attestation: All medical record entries made by the Scribe were at my direction and personally dictated by me. I have reviewed the chart and agree that the record accurately reflects my personal performance of the history, physical exam, medical decision making, and the department course for this patient. I have also personally directed, reviewed, and agree with the discharge instructions and disposition. Disposition/Present on Arrival - Present on Arrival History of DVT/PE: No History of Uncontrolled Diabetes: No Urinary Catheter: No History of Decub. Ulcer: No History Surgical Site Infection Following: None - Disposition Referrals: PCP,NO [Primary Care Provider] - Follow up with primary
--- NOTE | 2019-03-04 01:05 | ED PDOC ---
Arrival/HPI - General Historian: Patient - History of Present Illness Narrative History of Present Illness (Text): 03/03/19 20:17 39 year old male, with past medical history includes alcohol abuse, brought in by EMS for public intoxication. He admits to drinking today. Patient is not complaining of any medical or psychiatric complaints. Limited HPI and ROS due to patient's intoxicated state. <Tigist Shine PA-C - Last Filed: 03/04/19 01:02> <Abner Fenton - Last Filed: 03/04/19 04:48> - General Chief Complaint: Alcohol Ingestion Time Seen by Provider: 03/03/19 19:51 Past Medical History - Past History Past History: Non-Contributing - Infectious Disease Hx of Infectious Diseases: None - Cardiac Hx Cardiac Disorders: No - Pulmonary Hx Respiratory Disorders: No - Neurological Hx Neurological Disorder: No - HEENT Hx HEENT Disorder: No - Renal Hx Renal Disorder: No - Endocrine/Metabolic Hx Endocrine Disorders: No - Hematological/Oncological Hx Blood Disorders: No - Integumentary Hx Dermatological Disorder: No - Musculoskeletal/Rheumatological Hx Musculoskeletal Disorders: No - Gastrointestinal Hx Gastrointestinal Disorders: No - Genitourinary/Gynecological Hx Genitourinary Disorders: No - Psychiatric Hx Psychophysiologic Disorder: No Hx Substance Use: No - Past Surgical History Past Surgical History: Non-Contributing - Anesthesia Hx Anesthesia: No Hx Anesthesia Reactions: No Hx Malignant Hyperthermia: No <Tigist Shine PA-C - Last Filed: 03/04/19 01:02> Family/Social History Family/Social History: Unknown Family HX Smoking Status: Unknown If Ever Smoked Hx Alcohol Use: Yes Hx Substance Use: No <Tigist Shine PA-C - Last Filed: 03/04/19 01:02> Allergies/Home Meds <Tigist Shine PA-C - Last Filed: 03/04/19 01:02> <Abner Fenton - Last Filed: 03/04/19 04:48> Allergies/Adverse Reactions: Allergies No Known Allergies Allergy (Verified 03/01/19 19:48) Home Medications: Home Meds Medication Instructions Recorded Confirmed No Known Home Med 01/19/18 03/03/19 Review of Systems - Review of Systems Systems not reviewed;Unavailable: Intoxicated <Tigist Shine PA-C - Last Filed: 03/04/19 01:02> Physical Exam Vital Signs Temp Pulse Resp BP Pulse Ox 03/03/19 20:01 98.3 F 85 18 129/79 97 Temperature: Afebrile Blood Pressure: Normal Pulse: Regular Respiratory Rate: Normal Appearance: Positive for: Well-Appearing, Non-Toxic, Comfortable, Unkept, Other (+strong odor of alcohol) Pain Distress: None Mental Status: Positive for: Alert and Oriented X 3 Finger Stick Blood Glucose: 117 - Systems Exam Head: Present: Atraumatic, Normocephalic Pupils: Present: PERRL Extroacular Muscles: Present: EOMI Conjunctiva: Present: Normal Mouth: Present: Moist Mucous Membranes Neck: Present: Normal Range of Motion Respiratory/Chest: Present: Clear to Auscultation, Good Air Exchange. No: Respiratory Distress, Accessory Muscle Use Cardiovascular: Present: Regular Rate and Rhythm, Normal S1, S2. No: Murmurs Abdomen: No: Tenderness, Distention, Peritoneal Signs Back: Present: Normal Inspection Upper Extremity: Present: Normal Inspection. No: Cyanosis, Edema Lower Extremity: Present: Normal Inspection. No: Edema Neurological: Present: GCS=15, CN II-XII Intact Skin: Present: Warm, Dry, Normal Color. No: Rashes Psychiatric: Present: Alert, Oriented x 3 <Tigist Shine PA-C - Last Filed: 03/04/19 01:02> Vital Signs Temp Pulse Resp BP Pulse Ox 03/04/19 02:15 78 16 122/74 98 03/04/19 00:15 92 H 16 131/75 98 03/03/19 22:10 88 18 125/72 98 03/03/19 20:01 98.3 F 85 18 129/79 97 <Abner Fenton - Last Filed: 03/04/19 04:48> Medical Decision Making ED Course and Treatment: 03/03/19 20:17 Plan : - Observe until patient is sober and safe for discharge 03/04/19 01:03 Patient is sleeping comfortably in no acute distress, breathing is easy and unlabored, will continue to observe until the patient is clinically sober and safe for d/c. <Tigist Shine PA-C - Last Filed: 03/04/19 01:02> - PA / COST AND RISK ANALYSIS MANAGER / Resident Statement / has reviewed & agrees with the documentation as recorded. <Tigist Shine PA-C - Last Filed: 03/04/19 01:02> Disposition/Present on Arrival - Present on Arrival Any Indicators Present on Arrival: No History of DVT/PE: No History of Uncontrolled Diabetes: No Urinary Catheter: No History of Decub. Ulcer: No History Surgical Site Infection Following: None - Disposition Have Diagnosis and Disposition been Completed?: Yes Patient Plan: Discharge <Tigist Shine PA-C - Last Filed: 03/04/19 01:02> - Disposition Disposition Time: 04:48 <Abner Fenton - Last Filed: 03/04/19 04:48> - Disposition Diagnosis: Alcohol intoxication Disposition: HOME/ ROUTINE Condition: STABLE Discharge Instructions (ExitCare): Alcohol Use - When Is Drinking a Problem? Print Language: DIVEHI Referrals: PCP,NO [Primary Care Provider] - Follow up with primary Forms: [employer] (Tunisian)
[2019-03-04 03:28] VITALS: RESP 16
[2019-03-04 05:27] VITALS: BP 125/69; PULSE 80; O2SAT 97
== END 2019-03-04 05:37 | disposition home or self-care (01) ==
LOC: ED 19:46
DX: F10.129 Alcohol abuse with intoxication, unspecified (principal)

== ENCOUNTER 2019-03-05 00:57 | Emergency (ER) | payer OTHER ==
[2019-03-05 00:57] VITALS: BMI 25.8
--- NOTE | 2019-03-05 01:15 | ED PDOC ---
Arrival/HPI - General Chief Complaint: Alcohol Ingestion Time Seen by Provider: 03/05/19 01:05 Historian: Patient, EMS - History of Present Illness Narrative History of Present Illness (Text): 03/05/19 01:12 A 39 year old male is brought into the emergency department via EMS and [facility] for further evaluation after being found for public intoxication. Patient admits to drinking alcohol tonight. No trauma/injury. Patient resting comfortably. HPI/ ROS limited due to intoxication. Time/Duration: Prior to Arrival Symptom Onset: Sudden Symptom Course: Unchanged Activities at Onset: Rest, Light Context: Street Past Medical History - Provider Review Nursing Documentation Reviewed: Yes - Past History Past History: Non-Contributing - Infectious Disease Hx of Infectious Diseases: None - Cardiac Hx Cardiac Disorders: No - Pulmonary Hx Respiratory Disorders: No - Neurological Hx Neurological Disorder: No - HEENT Hx HEENT Disorder: No - Renal Hx Renal Disorder: No - Endocrine/Metabolic Hx Endocrine Disorders: No - Hematological/Oncological Hx Blood Disorders: No - Integumentary Hx Dermatological Disorder: No - Musculoskeletal/Rheumatological Hx Musculoskeletal Disorders: No - Gastrointestinal Hx Gastrointestinal Disorders: No - Genitourinary/Gynecological Hx Genitourinary Disorders: No - Psychiatric Hx Psychophysiologic Disorder: No Hx Substance Use: No - Past Surgical History Past Surgical History: Non-Contributing - Anesthesia Hx Anesthesia: No Hx Anesthesia Reactions: No Hx Malignant Hyperthermia: No Family/Social History - Physician Review Nursing Documentation Reviewed: Yes Family/Social History: No Known Family HX Smoking Status: Unknown If Ever Smoked Hx Alcohol Use: Yes Hx Substance Use: No Allergies/Home Meds Allergies/Adverse Reactions: Allergies No Known Allergies Allergy (Verified 03/01/19 19:48) Home Medications: Home Meds Medication Instructions Recorded Confirmed No Known Home Med 01/19/18 03/03/19 Review of Systems - Physician Review All systems were reviewed & negative as marked: Yes - Review of Systems Systems not reviewed;Unavailable: Intoxicated Physical Exam - Physical Exam Physical Exam Limitations: Intoxication Vital Signs Reviewed: Yes Vital Signs Temp Pulse Resp BP Pulse Ox 03/05/19 01:01 97.9 F 95 H 18 133/98 H 100 Temperature: Afebrile Blood Pressure: Hypertensive Pulse: Tachycardic Respiratory Rate: Normal Appearance: Positive for: Well-Appearing, Non-Toxic, Comfortable Pain Distress: None Mental Status: Positive for: Alert and Oriented X 3 - Systems Exam Head: Present: Atraumatic, Normocephalic Pupils: Present: PERRL Extroacular Muscles: Present: EOMI Conjunctiva: Present: Normal Mouth: Present: Moist Mucous Membranes Neck: Present: Normal Range of Motion Respiratory/Chest: Present: Clear to Auscultation, Good Air Exchange. No: Respiratory Distress, Accessory Muscle Use Cardiovascular: Present: Regular Rate and Rhythm, Normal S1, S2. No: Murmurs Abdomen: No: Tenderness, Distention, Peritoneal Signs Back: Present: Normal Inspection Upper Extremity: Present: Normal Inspection. No: Cyanosis, Edema Lower Extremity: Present: Normal Inspection. No: Edema Neurological: Present: GCS=15, CN II-XII Intact, Speech Normal, Motor Func Grossly Intact, Normal Sensory Function Skin: Present: Warm, Dry, Normal Color. No: Rashes Psychiatric: Present: Alert, Oriented x 3, Intoxicated Medical Decision Making ED Course and Treatment: 03/05/19 01:14 Impression: A 39 year old male is brought into the emergency department for public intoxication. Plan: -- Reassess and disposition Prior Visits: Notes and results from previous visits were reviewed. Progress Notes: 03/05/19 06:25 Patient awake alert sober with steady gait. - Scribe Statement The provider has reviewed the documentation as recorded by the Scribe Naz Sorensen Provider Scribe Attestation: All medical record entries made by the Scribe were at my direction and personally dictated by me. I have reviewed the chart and agree that the record accurately reflects my personal performance of the history, physical exam, medical decision making, and the department course for this patient. I have also personally directed, reviewed, and agree with the discharge instructions and disposition. Disposition/Present on Arrival - Present on Arrival Any Indicators Present on Arrival: No History of DVT/PE: No History of Uncontrolled Diabetes: No Urinary Catheter: No History of Decub. Ulcer: No History Surgical Site Infection Following: None - Disposition Have Diagnosis and Disposition been Completed?: Yes Diagnosis: Alcohol intoxication Disposition: HOME/ ROUTINE Disposition Time: 06:30 Condition: STABLE Discharge Instructions (ExitCare): Alcohol Abuse and Alcoholism (DC) Referrals: Alcoholics Anonymous [Outside] - Follow up with primary Forms: [employer] (Sami)
[2019-03-05 06:30] VITALS: BP 102/59; PULSE 90; RESP 16; TEMP 97.4; O2SAT 99
== END 2019-03-05 06:30 | disposition home or self-care (01) ==
LOC: ED 00:57
DX: F10.129 Alcohol abuse with intoxication, unspecified (principal)

== ENCOUNTER 2019-03-07 20:24 | Inpatient (IN) | payer OTHER ==
[2019-03-07 20:33] VITALS: BMI 29.2
[2019-03-07] MEDS ORDERED: Multivitamin (MVI) 10 ML, Thiamine 100 MG, Folic Acid 1 MG in Sodium Chloride 0.9% 1,00... IV ONE (20:49)
--- NOTE | 2019-03-07 21:04 | ED PDOC ---
Arrival/HPI - General Chief Complaint: Eye Problem Time Seen by Provider: 03/07/19 20:44 Historian: Patient - History of Present Illness Narrative History of Present Illness (Text): 03/07/19 21:04 [place] Encarnacion is a 39 year old male, whose past medical history includes chronic alcohol abuse, who presents to the Emergency department for hallucinations and shakiness. Patient states he has not had any alcohol to drink in 3 days and began seeing/hearing people who are there today. Patient states he does not feel well and also reports feeling shaky. On triage, patient stated he was unable to feel his extremities, but currently denies those complaints and is able to move all extremities without difficulty. Patient denies any other substance abuse, suicidal ideation, homicidal ideation, or any other complaints. Time/Duration: < week (3 days) Symptom Onset: Gradual Symptom Course: Unchanged Activities at Onset: Light Past Medical History - Provider Review Nursing Documentation Reviewed: Yes - Past History Past History: Non-Contributing - Infectious Disease Hx of Infectious Diseases: None - Cardiac Hx Cardiac Disorders: No - Pulmonary Hx Respiratory Disorders: No - Neurological Hx Neurological Disorder: No - HEENT Hx HEENT Disorder: No - Renal Hx Renal Disorder: No - Endocrine/Metabolic Hx Endocrine Disorders: No - Hematological/Oncological Hx Blood Disorders: No - Integumentary Hx Dermatological Disorder: No - Musculoskeletal/Rheumatological Hx Musculoskeletal Disorders: No - Gastrointestinal Hx Gastrointestinal Disorders: No - Genitourinary/Gynecological Hx Genitourinary Disorders: No - Psychiatric Hx Psychophysiologic Disorder: No Hx Substance Use: No - Past Surgical History Past Surgical History: Non-Contributing - Anesthesia Hx Anesthesia: No Hx Anesthesia Reactions: No Hx Malignant Hyperthermia: No Family/Social History - Physician Review Nursing Documentation Reviewed: Yes Family/Social History: Unknown Family HX Smoking Status: Unknown If Ever Smoked Hx Alcohol Use: Yes Frequency of alcohol use: Daily Hx Substance Use: No Allergies/Home Meds Allergies/Adverse Reactions: Allergies No Known Allergies Allergy (Verified 03/07/19 20:33) Home Medications: Home Meds Medication Instructions Recorded Confirmed No Known Home Med 01/19/18 03/03/19 Review of Systems - Physician Review All systems were reviewed & negative as marked: Yes - Review of Systems Constitutional: Other (+generalized malaise). absent: Fevers Respiratory: absent: SOB, Cough Cardiovascular: absent: Chest Pain Gastrointestinal: absent: Abdominal Pain, Diarrhea, Vomiting Genitourinary Male: absent: Dysuria Neurological: Other (+shaky). absent: Headache, Dizziness Psychiatric: Other (+hallucinations). absent: Suicidal Ideation Physical Exam Vital Signs Reviewed: Yes Vital Signs Temp Pulse Resp BP Pulse Ox 03/07/19 20:36 98 F 97 H 18 176/107 H 96 Temperature: Afebrile Blood Pressure: Hypertensive Pulse: Tachycardic Respiratory Rate: Normal Appearance: Positive for: Well-Appearing, Unkept Pain Distress: None Mental Status: Positive for: Alert and Oriented X 3 Finger Stick Blood Glucose: 113 - Systems Exam Head: Present: Atraumatic, Normocephalic Pupils: Present: PERRL Extroacular Muscles: Present: EOMI Conjunctiva: Present: Normal Mouth: Present: Moist Mucous Membranes Neck: Present: Normal Range of Motion Respiratory/Chest: Present: Clear to Auscultation, Good Air Exchange. No: Respiratory Distress, Accessory Muscle Use Cardiovascular: Present: Normal S1, S2, Tachycardic. No: Murmurs Abdomen: No: Tenderness, Distention, Peritoneal Signs Back: Present: Normal Inspection Upper Extremity: Present: Normal Inspection. No: Cyanosis, Edema Lower Extremity: Present: Normal Inspection. No: Edema Neurological: Present: GCS=15, CN II-XII Intact, Speech Normal Skin: Present: Warm, Normal Color, Diaphoretic (Mildly diaphoretic). No: Rashes Psychiatric: Present: Alert, Oriented x 3, Normal Insight, Normal Concentration Medical Decision Making ED Course and Treatment: 03/07/19 21:04 Impression: 39 year old male complaining of seeing/hearing people not present and shakiness today after no alcohol for 3 days. Plan: -- EKG -- Labs, lipase -- Urinalysis, urine drug screen -- Banana bag -- Librium -- Ativan -- Reassess and disposition Prior Visits: Notes and results from previous visits were reviewed. Progress Notes: 03/07/19 21:07 Reviewed EKG, sinus tachycardia at 103 bpm. Normal axis. Normal intervals. No ST segment elevations. BP improved to 133/83. HR 95-105. Given EtOH withdrawal symptoms with concern for DT, will admit. 03/07/19 22:35 Case discussed with biomedical engineer manager contract, who is aware and agrees with plan. 03/07/19 22:[address] Deleon, who is aware and agrees with plan. Accepts pt in to hospitalist service. Pt will go to Telemetry observation for alcohol withdrawal. - Lab Interpretations I have reviewed the lab results: Yes - EKG Interpretation Interpreted by ED Physician: Yes Type: 12 lead EKG - Medication Orders Current Medication Orders: Multivitamins/Vitamin C 10 ml/Thiamine HCl 100 mg/ Folic Acid 1 mg/ Sodium Chloride 1,011.2 mls @ 100 mls/hr IV .[id number] ONE Stop: 03/08/19 06:55 Discontinued Medications Chlordiazepoxide (Librium) 25 mg PO STAT STA Stop: 03/07/19 20:50 Lorazepam (Ativan) 2 mg IVP ONCE ONE Stop: 03/07/19 20:50 - Scribe Statement The provider has reviewed the documentation as recorded by the Radhaibromie Crews Provider Scribe Attestation: All medical record entries made by the Scribe were at my direction and p ersonally dictated by me. I have reviewed the chart and agree that the record accurately reflects my personal performance of the history, physical exam, medical decision making, and the department course for this patient. I have also personally directed, reviewed, and agree with the discharge instructions and disposition. Disposition/Present on Arrival - Present on Arrival Any Indicators Present on Arrival: No History of DVT/PE: No History of Uncontrolled Diabetes: No Urinary Catheter: No History of Decub. Ulcer: No History Surgical Site Infection Following: None - Disposition Have Diagnosis and Disposition been Completed?: Yes Diagnosis: Alcohol withdrawal Disposition: HOSPITALIZED Disposition Time: 22:40 Condition: STABLE
[2019-03-07 21:05] LABS: BASO # 0.01 K/mm3 (0.0-2.0); BASO % 0.2 % (0.0-3.0); EOS # 0.2 (0.0-0.7); EOS % 2.3 % (1.5-5.0); HEMOGLOBIN 14.2 g/dL (14.0-18.0); LYMPH # 1.5 (1.2-3.4); LYMPH % 23.9 % (22.0-35.0); MEAN CELL VOLUME 87.9 fl (80.0-105.0); MEAN CORPUSCULAR HEMOGLOBIN 31.3 pg (25.0-35.0); MEAN CORPUSCULAR HGB CONC 35.7 g/dl (31.0-37.0); MEAN PLATELET VOLUME 11.7 fl (7.0-11.0); MONO # 0.9 (0.1-0.6); MONO % 14.1 % (1.0-6.0); RBC 4.53 10^6/uL (3.5-6.1); RED CELL DISTRIBUTION WIDTH 13.4 % (11.5-14.5); WHITE BLOOD COUNT 6.4 10^3/uL (4.5-11.0)
[2019-03-07 21:25] LABS: BLOOD UREA NITROGEN 24 mg/dL (7-21); CALCIUM 9.7 mg/dL (8.4-10.5); GFR NON-AFRICAN AMERICAN > 60; LIPASE 235 U/L (23-300)
[2019-03-07 21:31] LABS: ALB/GLOB RATIO 1.2 (1.1-1.8); ALBUMIN 4.8 g/dL (3.0-4.8); ALT/SGPT 38 U/L (7-56); AST/SGOT 104 U/L (17-59)
[2019-03-07] MEDS ORDERED: Multivitamin (MVI) 10 ML, Thiamine 100 MG, Folic Acid 1 MG in Dextrose 5% In Water 1,00... IV ONE (22:38)
--- NOTE | 2019-03-07 22:49 | CP.PCM.HP ---
<Papa Streeter - Last Filed: 03/08/19 07:10> History of Present Illness - History of Present Illness History of Present Illness: HISTORY & PHYSICAL NOTE FOR HOSPITALIST SERVICE- DR. ADRIENNE Streeter PGY1 39 y/o upper sorbian speaking M with PMHx of ETOH abuse presents to ED with complaints of shakiness, jitteriness and "delirium" after he hasn't drank alcohol in the past 3 days. Pt also reports nausea and vomiting while in the ED. He reports he drinks about 12 beers/day and has been drinking this amount for several years. He has a friend that usually pays for his beer however he wasn't able to pay for his beer recently which is why he hasn't had alcohol. He denies any other substance abuse. Upon interview, he is denying complaints. He reports no acute discomfort. There is a bucket next to him in the ED with brown/non-bloody emesis in the ED next to him. He is AxO x 3, denying ROS PMH: denies All: denies PSH: denies SH: ETOH abuse x 5 years. 12 beers/day. Hasn't drank in 5 years. Previously smoked 1/2 pack cigarettes day x 3 years. Reports cessation. Hosp: [facility] for ETOH abuse. denies other hospitalizations FH: Mother: alive, in orange, DM2. Father: @54y/o: ETOH abuse Meds: none PMD: none Pharmacy: none Present on Admission - Present on Admission Any Indicators Present on Admission: No Review of Systems - Review of Systems Review of Systems: per HPI Past Patient History - Infectious Disease Hx of Infectious Diseases: None - Past Social History Smoking Status: Unknown If Ever Smoked - CARDIAC Hx Cardiac Disorders: No - PULMONARY Hx Respiratory Disorders: No - NEUROLOGICAL Hx Neurological Disorder: No - HEENT Hx HEENT Problems: No - RENAL Hx Chronic Kidney Disease: No - ENDOCRINE/METABOLIC Hx Endocrine Disorders: No - HEMATOLOGICAL/ONCOLOGICAL Hx Blood Disorders: No - INTEGUMENTARY Hx Dermatological Problems: No - MUSCULOSKELETAL/RHEUMATOLOGICAL Hx Musculoskeletal Disorders: No - GASTROINTESTINAL Hx Gastrointestinal Disorders: No - GENITOURINARY/GYNECOLOGICAL Hx Genitourinary Disorders: No - PSYCHIATRIC Hx Psychophysiologic Disorder: No Hx Substance Use: No - SURGICAL HISTORY Hx Surgeries: No - ANESTHESIA Hx Anesthesia: No Hx Anesthesia Reactions: No Hx Malignant Hyperthermia: No Meds Allergies/Adverse Reactions: Allergies Allergy/AdvReac Type Severity Reaction Status Date / Time No Known Allergies Allergy Verified 03/07/19 20:33 Physical Exam - Constitutional Appears: Non-toxic, No Acute Distress, Chronically Ill - Head Exam Head Exam: NORMAL INSPECTION, NORMOCEPHALIC - Eye Exam Eye Exam: EOMI, Normal appearance Pupil Exam: PERRL - ENT Exam ENT Exam: Mucous Membranes Dry - Neck Exam Neck exam: Positive for: Normal Inspection - Respiratory Exam Respiratory Exam: Clear to Auscultation Bilateral, NORMAL BREATHING PATTERN - Cardiovascular Exam Cardiovascular Exam: Tachycardia, +S1, +S2 - GI/Abdominal Exam GI & Abdominal Exam: Soft. absent: Tenderness - Extremities Exam Extremities exam: Positive for: normal inspection. Negative for: calf tenderness - Back Exam Back exam: NORMAL INSPECTION - Neurological Exam Neurological exam: Alert, Oriented x3 - Psychiatric Exam Psychiatric exam: Normal Affect, Normal Mood - Skin Skin Exam: Dry, Intact, Warm Results - Vital Signs Recent Vital Signs: Last Vital Signs Temp 98 F 03/07/19 20:36 Pulse 100 H 03/07/19 22:03 Resp 18 03/07/19 22:03 BP 133/83 03/07/19 22:03 Pulse Ox 97 03/07/19 22:03 - Labs Result Diagrams: 03/07/19 20:30 03/07/19 20:30 Labs: Laboratory Results - last 24 hr 03/07/19 03/07/19 03/07/19 20:28 20:30 20:30 WBC 6.4 RBC 4.53 Hgb 14.2 Hct 39.8 L MCV 87.9 D MCH 31.3 MCHC 35.7 RDW 13.4 Plt Count 154 MPV 11.7 H Neut % (Auto) 59.5 Lymph % (Auto) 23.9 [place] % (Auto) 14.1 H Eos % (Auto) 2.3 Baso % (Auto) 0.2 Lymph # (Auto) 1.5 [place] # (Auto) 0.9 H Eos # (Auto) 0.2 Baso # (Auto) 0.01 Absolute Neuts (auto) 3.83 Sodium 138 Potassium 3.7 Chloride 99 Carbon Dioxide 27 Anion Gap 15 BUN 24 H Creatinine 0.9 Est GFR ( Amer) > 60 Est GFR (Non-Af Amer) > 60 POC Glucose (mg/dL) 113 H Random Glucose 116 H Calcium 9.7 Phosphorus 5.0 H Magnesium 1.8 Total Bilirubin 1.8 H AST 104 H D ALT 38 Alkaline Phosphatase 76 Total Protein 8.7 H Albumin 4.8 Globulin 3.9 Albumin/Globulin Ratio 1.2 Lipase 235 Assessment & Plan - Assessment and Plan (Free Text) Assessment: 39 y/o M with PMH of chronic ETOH abuse admitted for ETOH withdrawal Plan: ETOH withdrawal Not currently in delirium tremens received ativan 2mg IVP, librium 25mg, banana bag in ED. serum ETOH <10 start banana bag bolus CIWA protocol, seizure/aspiration precautions Ativan 1Q2 nevin, 2Q4 prn nursing swallow evaluation advised on cessation transition to oral thiamine/multivitamin/folic acid DVT/GI PPx: SCD & lovenox/protonix Case reviewed with attending physician Dr. Adrienne Streeter PGY1 <Marya Deleon - Last Filed: 03/08/19 10:43> Results - Vital Signs Recent Vital Signs: Last Vital Signs Temp 97.8 F 03/08/19 09:06 Pulse 74 03/08/19 06:00 Resp 20 03/08/19 06:00 BP 111/69 03/08/19 06:00 Pulse Ox 100 03/08/19 06:00 - Labs Result Diagrams: 03/08/19 06:45 03/08/19 06:45 Labs: Laboratory Results - last 24 hr 03/07/19 03/07/19 03/07/19 20:28 20:30 20:30 WBC 6.4 RBC 4.53 Hgb 14.2 Hct 39.8 L MCV 87.9 D MCH 31.3 MCHC 35.7 RDW 13.4 Plt Count 154 MPV 11.7 H Neut % (Auto) 59.5 Lymph % (Auto) 23.9 [place] % (Auto) 14.1 H Eos % (Auto) 2.3 Baso % (Auto) 0.2 Lymph # (Auto) 1.5 [place] # (Auto) 0.9 H Eos # (Auto) 0.2 Baso # (Auto) 0.01 Absolute Neuts (auto) 3.83 Sodium 138 Potassium 3.7 Chloride 99 Carbon Dioxide 27 Anion Gap 15 BUN 24 H Creatinine 0.9 Est GFR ( Amer) > 60 Est GFR (Non-Af Amer) > 60 POC Glucose (mg/dL) 113 H Random Glucose 116 H Calcium 9.7 Phosphorus 5.0 H Magnesium 1.8 Total Bilirubin 1.8 H AST 104 H D ALT 38 Alkaline Phosphatase 76 Total Protein 8.7 H Albumin 4.8 Globulin 3.9 Albumin/Globulin Ratio 1.2 Lipase 235 Urine Color Urine Appearance Urine pH Ur Specific [place] Urine Protein Urine Glucose (UA) Urine Ketones Urine Blood Urine Nitrate Urine Bilirubin Urine Urobilinogen Ur Leukocyte Esterase Urine Opiates Screen Urine Methadone Screen Ur Barbiturates Screen Ur Phencyclidine Scrn Ur Amphetamines Screen U Benzodiazepines Scrn U Oth Cocaine Metabols U Cannabinoids Screen Alcohol, Quantitative 03/07/19 03/07/19 03/07/19 20:30 22:46 23:07 WBC RBC Hgb Hct MCV MCH MCHC RDW Plt Count MPV Neut % (Auto) Lymph % (Auto) [place] % (Auto) Eos % (Auto) Baso % (Auto) Lymph # (Auto) [place] # (Auto) Eos # (Auto) Baso # (Auto) Absolute Neuts (auto) Sodium Potassium Chloride Carbon Dioxide Anion Gap BUN Creatinine Est GFR ( Amer) Est GFR (Non-Af Amer) POC Glucose (mg/dL) Random Glucose Calcium Phosphorus Magnesium Total Bilirubin AST ALT Alkaline Phosphatase Total Protein Albumin Globulin Albumin/Globulin Ratio Lipase Urine Color Yellow Urine Appearance Clear Urine pH 6.5 Ur Specific [place] 1.015 Urine Protein Negative Urine Glucose (UA) Negative Urine Ketones Negative Urine Blood Negative Urine Nitrate Negative Urine Bilirubin Negative Urine Urobilinogen 1.0 H Ur Leukocyte Esterase Negative Urine Opiates Screen Negative Urine Methadone Screen Negative Ur Barbiturates Screen Negative Ur Phencyclidine Scrn Negative Ur Amphetamines Screen Negative U Benzodiazepines Scrn Negative U Oth Cocaine Metabols Negative U Cannabinoids Screen Negative Alcohol, Quantitative < 10 03/08/19 03/08/19 06:45 06:45 WBC 3.8 L D RBC 4.32 Hgb 13.0 L Hct 38.1 L MCV 88.2 MCH 30.1 MCHC 34.1 RDW 13.3 Plt Count 123 MPV 10.8 Neut % (Auto) 46.1 L Lymph % (Auto) 32.3 [place] % (Auto) 15.3 H Eos % (Auto) 5.8 H Baso % (Auto) 0.5 Lymph # (Auto) 1.2 [place] # (Auto) 0.6 Eos # (Auto) 0.2 Baso # (Auto) 0.02 Absolute Neuts (auto) 1.74 Sodium 137 Potassium 2.9 L* D Chloride 100 Carbon Dioxide 29 Anion Gap 11 BUN 18 Creatinine 0.7 L Est GFR ( Amer) > 60 Est GFR (Non-Af Amer) > 60 POC Glucose (mg/dL) Random Glucose 90 Calcium 8.7 Phosphorus 4.0 Magnesium 2.1 Total Bilirubin 1.8 H AST 66 H D ALT 39 Alkaline Phosphatase 58 Total Protein 7.2 Albumin 3.9 Globulin 3.3 Albumin/Globulin Ratio 1.2 Lipase Urine Color Urine Appearance Urine pH Ur Specific [place] Urine Protein Urine Glucose (UA) Urine Ketones Urine Blood Urine Nitrate Urine Bilirubin Urine Urobilinogen Ur Leukocyte Esterase Urine Opiates Screen Urine Methadone Screen Ur Barbiturates Screen Ur Phencyclidine Scrn Ur Amphetamines Screen U Benzodiazepines Scrn U Oth Cocaine Metabols U Cannabinoids Screen Alcohol, Quantitative Attending/Attestation - Attestation I have personally seen and examined this patient.: Yes I have fully participated in the care of the patient.: Yes I have reviewed all pertinent clinical information: Yes Notes (Text): 03/08/19 10:41 Pt seen with the resident by the bedside. Case discussed in detail. Agree with documentation,assessment and orders placed.
[2019-03-07 23:16] LABS: BARBITURATES, UR NEGATIVE (NEGATIVE); BENZODIAZEPINES, UR NEGATIVE (NEGATIVE); OPIATES, UR NEGATIVE (NEGATIVE); PHENCYCLIDINE, UR NEGATIVE (NEGATIVE)
[2019-03-07 23:16] LABS: PH,URINE 6.5 (4.7-8.0); URINE BILIRUBIN NEGATIVE (NEGATIVE); URINE BLOOD NEGATIVE (NEGATIVE); URINE GLUCOSE (UA) NEGATIVE (NEGATIVE); URINE LEUKOCYTE ESTERASE NEGATIVE Leu/uL (NEGATIVE); URINE PROTEIN NEGATIVE mg/dL (<30 mg/dL)
[2019-03-07 23:18] LABS: URINE APPEARANCE CLEAR (CLEAR); URINE COLOR YELLOW (YELLOW)
[2019-03-08 07:25] LABS: BASO # 0.02 K/mm3 (0.0-2.0); BASO % 0.5 % (0.0-3.0); EOS # 0.2 (0.0-0.7); EOS % 5.8 % (1.5-5.0); LYMPH # 1.2 (1.2-3.4); LYMPH % 32.3 % (22.0-35.0); MEAN CELL VOLUME 88.2 fl (80.0-105.0); MEAN CORPUSCULAR HEMOGLOBIN 30.1 pg (25.0-35.0); MEAN CORPUSCULAR HGB CONC 34.1 g/dl (31.0-37.0); MEAN PLATELET VOLUME 10.8 fl (7.0-11.0); MONO # 0.6 (0.1-0.6); MONO % 15.3 % (1.0-6.0); RBC 4.32 10^6/uL (3.5-6.1); RED CELL DISTRIBUTION WIDTH 13.3 % (11.5-14.5); WHITE BLOOD COUNT 3.8 10^3/uL (4.5-11.0)
[2019-03-08 07:50] LABS: ALB/GLOB RATIO 1.2 (1.1-1.8); ALBUMIN 3.9 g/dL (3.0-4.8); ALT/SGPT 39 U/L (7-56); AST/SGOT 66 U/L (17-59); BLOOD UREA NITROGEN 18 mg/dL (7-21); CALCIUM 8.7 mg/dL (8.4-10.5); GFR NON-AFRICAN AMERICAN > 60
[2019-03-08] MEDS: Multivitamin With Minerals Tab PO SCH (08:56)
[2019-03-08] MEDS ORDERED: Potassium Chloride 40 mEq/30 ml LIQ UD PO ONE (09:23)
--- NOTE | 2019-03-08 09:41 | CARD ---
APPROVED REPORT Date of service: 03/07/2019 EKG Measurement Heart [id number] <Conclusion> Sinus tachycardia T wave abnormality, consider inferior ischemia Abnormal ECG
[2019-03-08] MEDS: Enoxaparin 40 mg Syringe SC SCH (09:47)
[2019-03-08] MEDS ORDERED: Potassium Chloride 40 mEq/30 ml LIQ UD PO SCH (10:00)
[2019-03-08] MEDS ORDERED: Potassium Chloride 20 mEq ER Tab PO SCH (10:00)
[2019-03-08] MEDS ORDERED: Potassium Chl 10 mEq in D5-1/2 1,000 ML IV SCH (10:30)
[2019-03-09 06:32] VITALS: O2SAT 100
[2019-03-09 07:04] LABS: BASO # 0.01 K/mm3 (0.0-2.0); BASO % 0.3 % (0.0-3.0); EOS # 0.2 (0.0-0.7); EOS % 5.2 % (1.5-5.0); HEMOGLOBIN 13.7 g/dL (14.0-18.0); LYMPH # 1.1 (1.2-3.4); LYMPH % 31.2 % (22.0-35.0); MEAN CELL VOLUME 89.1 fl (80.0-105.0); MEAN CORPUSCULAR HEMOGLOBIN 30.6 pg (25.0-35.0); MEAN CORPUSCULAR HGB CONC 34.3 g/dl (31.0-37.0); MEAN PLATELET VOLUME 10.9 fl (7.0-11.0); MONO # 0.5 (0.1-0.6); MONO % 13.7 % (1.0-6.0); RBC 4.48 10^6/uL (3.5-6.1); RED CELL DISTRIBUTION WIDTH 13.6 % (11.5-14.5); WHITE BLOOD COUNT 3.7 10^3/uL (4.5-11.0)
[2019-03-09 07:50] LABS: ALB/GLOB RATIO 1.2 (1.1-1.8); ALBUMIN 3.9 g/dL (3.0-4.8); ALT/SGPT 70 U/L (7-56); AST/SGOT 98 U/L (17-59); BLOOD UREA NITROGEN 10 mg/dL (7-21); CALCIUM 9.1 mg/dL (8.4-10.5); GFR NON-AFRICAN AMERICAN > 60
[2019-03-09] MEDS: Enoxaparin 40 mg Syringe SC SCH (09:13)
[2019-03-09] MEDS: Multivitamin With Minerals Tab PO SCH (09:14)
[2019-03-09 12:59] VITALS: BP 143/90; PULSE 70; RESP 21; TEMP 97.4
--- NOTE | 2019-03-09 13:46 | CP.PCM.DIS ---
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 Time Spent in preparation of Discharge (in minutes): 60 Hospital Course - Lab Results Lab Results: Most Recent Lab Values WBC 3.7 10^3/uL (4.5-11.0) L 03/09/19 06:30 RBC 4.48 10^6/uL (3.5-6.1) 03/09/19 06:30 Hgb 13.7 g/dL (14.0-18.0) L 03/09/19 06:30 Hct 39.9 % (42.0-52.0) L 03/09/19 06:30 MCV 89.1 fl (80.0-105.0) 03/09/19 06:30 MCH 30.6 pg (25.0-35.0) 03/09/19 06:30 MCHC 34.3 g/dl (31.0-37.0) 03/09/19 06:30 RDW 13.6 % (11.5-14.5) 03/09/19 06:30 Plt Count 125 10^3/uL (120.0-450.0) 03/09/19 06:30 MPV 10.9 fl (7.0-11.0) 03/09/19 06:30 Neut % (Auto) 49.6 % (50.0-68.0) L 03/09/19 06:30 Lymph % (Auto) 31.2 % (22.0-35.0) 03/09/19 06:30 [place] % (Auto) 13.7 % (1.0-6.0) H 03/09/19 06:30 Eos % (Auto) 5.2 % (1.5-5.0) H 03/09/19 06:30 Baso % (Auto) 0.3 % (0.0-3.0) 03/09/19 06:30 Lymph # (Auto) 1.1 (1.2-3.4) L 03/09/19 06:30 [place] # (Auto) 0.5 (0.1-0.6) 03/09/19 06:30 Eos # (Auto) 0.2 (0.0-0.7) 03/09/19 06:30 Baso # (Auto) 0.01 K/mm3 (0.0-2.0) 03/09/19 06:30 Absolute Neuts (auto) 1.81 (1.4-6.5) 03/09/19 06:30 Sodium 139 mmol/L (132-148) 03/09/19 07:20 Potassium 3.6 mmol/L (3.6-5.0) 03/09/19 07:20 Chloride 103 mmol/L (98-107) 03/09/19 07:20 Carbon Dioxide 28 mmol/L (21-33) 03/09/19 07:20 Anion Gap 11 (10-20) 03/09/19 07:20 BUN 10 mg/dL (7-21) 03/09/19 07:20 Creatinine 0.6 mg/dl (0.8-1.5) L 03/09/19 07:20 Est GFR ( Amer) > 60 03/09/19 07:20 Est GFR (Non-Af Amer) > 60 03/09/19 07:20 POC Glucose (mg/dL) 113 mg/dL (65-110) H 03/07/19 20:28 Random Glucose 83 mg/dL (70-110) 03/09/19 07:20 Calcium 9.1 mg/dL (8.4-10.5) 03/09/19 07:20 Phosphorus 3.3 mg/dL (2.5-4.5) 03/09/19 07:20 Magnesium 2.1 mg/dL (1.7-2.2) 03/09/19 07:20 Total Bilirubin 1.5 mg/dL (0.2-1.3) H 03/09/19 07:20 AST 98 U/L (17-59) H D 03/09/19 07:20 ALT 70 U/L (7-56) H 03/09/19 07:20 Alkaline Phosphatase 56 U/L (38-126) 03/09/19 07:20 Total Protein 7.0 g/dL (5.8-8.3) 03/09/19 07:20 Albumin 3.9 g/dL (3.0-4.8) 03/09/19 07:20 Globulin 3.2 gm/dL 03/09/19 07:20 Albumin/Globulin Ratio 1.2 (1.1-1.8) 03/09/19 07:20 Lipase 235 U/L (23-300) 03/07/19 20:30 Urine Color Yellow (YELLOW) 03/07/19 23:07 Urine Appearance Clear (CLEAR) 03/07/19 23:07 Urine pH 6.5 (4.7-8.0) 03/07/19 23:07 Ur Specific [place] 1.015 (1.005-1.035) 03/07/19 23:07 Urine Protein Negative mg/dL (<30 mg/dL) 03/07/19 23:07 Urine Glucose (UA) Negative mg/dL (NEGATIVE) 03/07/19 23:07 Urine Ketones Negative mg/dL (NEGATIVE) 03/07/19 23:07 Urine Blood Negative (NEGATIVE) 03/07/19 23:07 Urine Nitrate Negative (NEGATIVE) 03/07/19 23:07 Urine Bilirubin Negative (NEGATIVE) 03/07/19 23:07 Urine Urobilinogen 1.0 E.U./dL (<1 E.U./dL) H 03/07/19 23:07 Ur Leukocyte Esterase Negative Tien/uL (NEGATIVE) 03/07/19 23:07 Urine Opiates Screen Negative (NEGATIVE) 03/07/19 22:46 Urine Methadone Screen Negative (NEGATIVE) 03/07/19 22:46 Ur Barbiturates Screen Negative (NEGATIVE) 03/07/19 22:46 Ur Phencyclidine Scrn Negative (NEGATIVE) 03/07/19 22:46 Ur Amphetamines Screen Negative (NEGATIVE) 03/07/19 22:46 U Benzodiazepines Scrn Negative (NEGATIVE) 03/07/19 22:46 U Oth Cocaine Metabols Negative (NEGATIVE) 03/07/19 22:46 U Cannabinoids Screen Negative (NEGATIVE) 03/07/19 22:46 Alcohol, Quantitative < 10 mg/dL (0-10) 03/07/19 20:30 - Hospital Course Hospital Course: Tacos Whiteside, PGY-1, Internal Medicine Discharge Summary for Dr. Armstrong 39 year old male with past medical history of alcohol abuse presented to the emergency department with complaints of shakiness, jitteriness, visual and auditary hallucinations after he had not had a drink in 3-4 days. He reports having 9-10 episodes of vomiting prior to coming to the emergency department. He had been drinking about 10 beers a day and had been doing that for several years. He reported that he was trying to quit drinking alcohol at this time. He denies any other substance abuse. He denied any abdominal pain or nausea upon presentation. He was AAOx3. Upon admission, patient was started on banana bag and ativan 2 Q4 and 1 Q2PRN for withdrawal symptoms as patient's CIWA was 12 and 8 on admission. Overnight, patient's CIWA dropped to 5 and subsequently to 1. Patient was somnolent on presentation the next morning. Patient's ativan was reduced to 1 Q4 and 0.5 Q2PRN for withdrawal symptoms and started on MVI, folate, and thiamine. Patient's CIWA continued to be low and today, CIWA was 0-1. This morning, patient was sitting up in bed in no acute distress and had no abdominal pain or episodes of vomiting. Patient was found to be stable and ready for discharge. Patient was found to be stable and ready for discharge. Patient was told to take all medications as prescribed. Patient was told to follow up with primary care physician within 3-5 days. Patient was advised on alcohol cessation and told to find a support group like alcoholics anonymous. Patient was told to return to the emergency department if he had any new or concerning symptoms. This is a brief summary of the events that occurred during this hospital visit. For more info, please refer to hospital documentation. Discharge Diagnoses Alcohol abuse Alcohol withdrawal - Date & Time of H&P Date of H&P: 03/08/19 Time of H&P: 04:37 Discharge Exam - Head Exam Head Exam: NORMAL INSPECTION, NORMOCEPHALIC - Eye Exam Eye Exam: EOMI Pupil Exam: NORMAL ACCOMODATION, PERRL - ENT Exam ENT Exam: Mucous Membranes Moist, Normal Exam - Neck Exam Neck exam: Full Rom, Normal Inspection - Respiratory Exam Respiratory Exam: Clear to PA & Lateral, NORMAL BREATHING PATTERN. absent: Rales, Rhonchi, Wheezes - Cardiovascular Exam Cardiovascular Exam: REGULAR RHYTHM, RRR, +S1, +S2. absent: Clicks, Gallop - GI/Abdominal Exam GI & Abdominal Exam: Normal Bowel Sounds, Unremarkable. absent: Distended, Firm, Guarding, Soft - Extremities Exam Extremities exam: full ROM, normal capillary refill, normal inspection - Neurological Exam Neurological exam: Alert, CN II-XII Intact, Oriented x3 - Psychiatric Exam Psychiatric exam: Normal Affect, Normal Mood - Skin Skin Exam: Dry, Intact, Normal Color Discharge Plan - Discharge Medications Prescriptions: Folic Acid 1 mg PO DAILY #30 tab Multimineral/Multivitamin [Therapeutic-M Tab] 1 tab PO 0800 #30 tab Thiamine [Vitamin B1 Tab] 100 mg PO DAILY #30 tab - Follow Up Plan Condition: STABLE Disposition: HOME/ ROUTINE Instructions: Alcohol Withdrawal (DC), Alcohol Abuse and Alcoholism (DC) Additional Instructions: Please follow up with your PCP within 3-5 days. Please take all medications as prescribed. Please refrain from alcohol use. Please consider Alcoholics Anonymous for assistance in helping quit alcohol use. Please return to the emergency department if you have any new or concerning symptoms. 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 [facility] Course - Lab Results Lab Results: Most Recent Lab Values WBC 3.7 10^3/uL (4.5-11.0) L 03/09/19 06:30 RBC 4.48 10^6/uL (3.5-6.1) 03/09/19 06:30 Hgb 13.7 g/dL (14.0-18.0) L 03/09/19 06:30 Hct 39.9 % (42.0-52.0) L 03/09/19 06:30 MCV 89.1 fl (80.0-105.0) 03/09/19 06:30 MCH 30.6 pg (25.0-35.0) 03/09/19 06:30 MCHC 34.3 g/dl (31.0-37.0) 03/09/19 06:30 RDW 13.6 % (11.5-14.5) 03/09/19 06:30 Plt Count 125 10^3/uL (120.0-450.0) 03/09/19 06:30 MPV 10.9 fl (7.0-11.0) 03/09/19 06:30 Neut % (Auto) 49.6 % (50.0-68.0) L 03/09/19 06:30 Lymph % (Auto) 31.2 % (22.0-35.0) 03/09/19 06:30 [place] % (Auto) 13.7 % (1.0-6.0) H 03/09/19 06:30 Eos % (Auto) 5.2 % (1.5-5.0) H 03/09/19 06:30 Baso % (Auto) 0.3 % (0.0-3.0) 03/09/19 06:30 Lymph # (Auto) 1.1 (1.2-3.4) L 03/09/19 06:30 [place] # (Auto) 0.5 (0.1-0.6) 03/09/19 06:30 Eos # (Auto) 0.2 (0.0-0.7) 03/09/19 06:30 Baso # (Auto) 0.01 K/mm3 (0.0-2.0) 03/09/19 06:30 Absolute Neuts (auto) 1.81 (1.4-6.5) 03/09/19 06:30 Sodium 139 mmol/L (132-148) 03/09/19 07:20 Potassium 3.6 mmol/L (3.6-5.0) 03/09/19 07:20 Chloride 103 mmol/L (98-107) 03/09/19 07:20 Carbon Dioxide 28 mmol/L (21-33) 03/09/19 07:20 Anion Gap 11 (10-20) 03/09/19 07:20 BUN 10 mg/dL (7-21) 03/09/19 07:20 Creatinine 0.6 mg/dl (0.8-1.5) L 03/09/19 07:20 Est GFR ( Amer) > 60 03/09/19 07:20 Est GFR (Non-Af Amer) > 60 03/09/19 07:20 POC Glucose (mg/dL) 113 mg/dL (65-110) H 03/07/19 20:28 Random Glucose 83 mg/dL (70-110) 03/09/19 07:20 Calcium 9.1 mg/dL (8.4-10.5) 03/09/19 07:20 Phosphorus 3.3 mg/dL (2.5-4.5) 03/09/19 07:20 Magnesium 2.1 mg/dL (1.7-2.2) 03/09/19 07:20 Total Bilirubin 1.5 mg/dL (0.2-1.3) H 03/09/19 07:20 AST 98 U/L (17-59) H D 03/09/19 07:20 ALT 70 U/L (7-56) H 03/09/19 07:20 Alkaline Phosphatase 56 U/L (38-126) 03/09/19 07:20 Total Protein 7.0 g/dL (5.8-8.3) 03/09/19 07:20 Albumin 3.9 g/dL (3.0-4.8) 03/09/19 07:20 Globulin 3.2 gm/dL 03/09/19 07:20 Albumin/Globulin Ratio 1.2 (1.1-1.8) 03/09/19 07:20 Lipase 235 U/L (23-300) 03/07/19 20:30 Urine Color Yellow (YELLOW) 03/07/19 23:07 Urine Appearance Clear (CLEAR) 03/07/19 23:07 Urine pH 6.5 (4.7-8.0) 03/07/19 23:07 Ur Specific [place] 1.015 (1.005-1.035) 03/07/19 23:07 Urine Protein Negative mg/dL (<30 mg/dL) 03/07/19 23:07 Urine Glucose (UA) Negative mg/dL (NEGATIVE) 03/07/19 23:07 Urine Ketones Negative mg/dL (NEGATIVE) 03/07/19 23:07 Urine Blood Negative (NEGATIVE) 03/07/19 23:07 Urine Nitrate Negative (NEGATIVE) 03/07/19 23:07 Urine Bilirubin Negative (NEGATIVE) 03/07/19 23:07 Urine Urobilinogen 1.0 E.U./dL (<1 E.U./dL) H 03/07/19 23:07 Ur Leukocyte Esterase Negative Tien/uL (NEGATIVE) 03/07/19 23:07 Urine Opiates Screen Negative (NEGATIVE) 03/07/19 22:46 Urine Methadone Screen Negative (NEGATIVE) 03/07/19 22:46 Ur Barbiturates Screen Negative (NEGATIVE) 03/07/19 22:46 Ur Phencyclidine Scrn Negative (NEGATIVE) 03/07/19 22:46 Ur Amphetamines Screen Negative (NEGATIVE) 03/07/19 22:46 U Benzodiazepines Scrn Negative (NEGATIVE) 03/07/19 22:46 U Oth Cocaine Metabols Negative (NEGATIVE) 03/07/19 22:46 U Cannabinoids Screen Negative (NEGATIVE) 03/07/19 22:46 Alcohol, Quantitative < 10 mg/dL (0-10) 03/07/19 20:30 Attending/Attestation - Attestation I have personally seen and examined this patient.: Yes I have fully participated in the care of the patient.: Yes I have reviewed all pertinent clinical information, including history, physical exam and plan: Yes Notes (Text): 03/09/19 14:14 39 year old male with past medical history of alcohol abuse who presented with alcohol withdrawal symptoms. He was started on banana bag and ativan nevin/prn for withdrawal symptoms. As his symptoms improved his ativan was tapered. Elevated LFTs likely secondary to ETOH abuse. Hypokalemia was repleted. He was counselled on alcohol cessation. sill worker referral obtained as patient reports being homeless. Patient is discharged today. Follow up at [facility]. Counselled on alcohol abstinence. Marv Armstrong MD Hospitalist.
== END 2019-03-09 14:56 | disposition home or self-care (01) | DRG 775 ==
LOC: ED 20:24 → ERH 22:40 → 2RSO 03-08 00:20 → OBSVTOIN 03-08 14:29
PROVIDERS: ADMIT Internal Medicine; ATTEND Internal Medicine
DX: F10.239 Alcohol dependence with withdrawal, unspecified (principal); E87.6 Hypokalemia; Z59.0 Homelessness; Z87.891 Personal history of nicotine dependence